=== PATIENT | female | born 2005 | race Caucasian/White ===

== ENCOUNTER 2024-02-24 16:46 | Emergency (ER) | payer OTHER, SELFPAY ==
[2024-02-24 16:51] VITALS: BP 136/87; PULSE 91; TEMP 36.9; O2SAT 99
--- NOTE | 2024-02-24 17:09 | ED_ITS ---
HPI HPI - General Adult General Chief complaint: Upper Respiratory Infection Stated complaint: SORE THROAT Time Seen by Provider: 02/24/24 16:50 Source: patient Mode of arrival: walk-in Limitations: no limitations History of Present Illness HPI narrative: Patient presents to ED complaining of sore throat. She has had a sore throat for about a week. She went to an urgent care and they tested her for strep which was negative. Patient states she gets throat infections a lot and she feels like she is at the point where she needs some medication for it. She has some swelling in the left side with increased pain in the left side of the throat. Trismus no drooling she is handling secretions no hot potato voice. No fever here no hypoxia. She denies any cough or congestion no abdominal pain nausea vomiting. She said she has been using sore throat spray and it works for a little while but then stopped working. She said she has had steroids in the past and that has helped her pain and swelling in her throat. She said she was seen by ENT in the past and they said they were going to take her tonsils out but she does get chronic infections. Related Data Previous Rx's ?Medication ?Instructions ?Recorded clindamycin HCl 300 mg capsule 300 mg PO Q6H 10 days #40 caps 02/24/24 methylprednisolone 4 mg tablets in 4 mg PO DAILY #21 ea 02/24/24 a dose pack (Medrol (Robert)) Allergies Allergy/AdvReac Type Severity Reaction Status Date / Time Penicillins Allergy Severe Rash Verified 02/24/24 16:55 Opioid HPI Opioid Management Most Recent Opioid Data: No Data to Display Review of Systems ROS Status of ROS 10 or more systems reviewed and unremark able except as noted in history and below PFSH PFSH Social History Little interest or pleasure in doing things: not at all Feeling down, depressed, or hopeless: not at all Exam Narrative Exam Narrative: General: alert, no acute distress Cardiovascular: regular rate and rhythm, normal peripheral perfusion. Respiratory: Lungs CTA, respirations non labored. Extremities: no deformity, no trauma. Neurological: oriented x 4, LOC appropriate for age. Bilateral posterior pharynx shows erythema, worsening erythema on the left with very mild swelling and exudates more prominent on the left. No uvular shift. Airway patent. No trismus. No tongue elevation or drooling. Constitutional Vital Signs, click to edit/add: Last Vital Signs Temp 98.5 F 02/24/24 16:51 Pulse 91 H 02/24/24 16:51 Resp 20 02/24/24 16:51 BP 136/87 02/24/24 16:51 Pulse Ox 99 02/24/24 16:51 O2 Del Method Room Air 02/24/24 16:51 Course Vital Signs Vital signs: Vital Signs Temperature 98.5 F 02/24/24 16:51 Pulse Rate 91 H 02/24/24 16:51 Respiratory Rate 20 02/24/24 16:51 Blood Pressure 136/87 02/24/24 16:51 Pulse Oximetry 99 02/24/24 16:51 Oxygen Delivery Method Room Air 02/24/24 16:51 Temperature 98.5 F 02/24/24 16:51 Pulse Rate 91 H 02/24/24 16:51 Respiratory Rate 20 02/24/24 16:51 Blood Pressure 136/87 02/24/24 16:51 Pulse Oximetry 99 02/24/24 16:51 Oxygen Delivery Method Room Air 02/24/24 16:51 Medical Decision Making MDM Narrative Medical decision making narrative: Patient will be sent home on clindamycin due to her allergy to penicillin. She will also be sent home with steroids to help with swelling. Return to ED if worsening symptoms fevers vomiting or any further concerns. Otherwise follow-up with family doctor. Patient comfortable care plan for home Differential Diagnosis Differential Diagnosis: Peritonsillar abscess, strep throat, pharyngitis, viral syndrome Discharge Plan Discharge Chief Complaint: Upper Respiratory Infection Clinical Impression: Pharyngitis Patient Disposition: Home, Self-Care Time of Disposition Decision: 17:00 Condition: Good Mode of Transportation: Private Vehicle Prescriptions / Home Meds: New clindamycin HCl 300 mg capsule 300 mg PO Q6H 10 Days Qty: 40 0RF methylprednisolone [Medrol (Robert)] 4 mg tablets,dose pack 4 mg PO DAILY Qty: 21 0RF Print Language: Estonian Instructions: Pharyngitis (ED) Referrals: Physician,Non-Staff, MD [Primary Care Provider] - 1 week
== END 2024-02-24 17:10 | disposition home or self-care (01) ==
PROVIDERS: Emergency Provider Emergency Medicine
DX: J02.9 Acute pharyngitis, unspecified (principal); Z88.0 Allergy status to penicillin
CPT/HCPCS: 99283

== ENCOUNTER 2024-11-16 14:18 | Emergency (ER) | payer OTHER, SELFPAY ==
[2024-11-16 14:28] VITALS: BP 139/82; PULSE 71; TEMP 37.2; O2SAT 100; BMI 28.3
--- NOTE | 2024-11-16 14:37 | ED.ABDPAIN1 ---
HPI - Abdominal Pain General Chief Complaint: Abdominal Pain Stated Complaint: ABDOMINAL PAIN Time Seen by Provider: 11/16/24 14:33 Source: patient Mode of arrival: walk-in Limitations: no limitations History of Present Illness HPI narrative: 18 year old female presents to the ED for low abd pain, urinary frequency/urgency, AUB. States her LNMP was 11/10/24. States she typically only has 3 days of bleeding. She has had continued light pink spotting. Reports suprapubic pain/pressure. She felt lightheade at work today. Denies fever, injury, emesis, diarrhea, dysuria. Denies chance of . Related Data Home Medications ?Medication ?Instructions ?Recorded ?Confirmed norgestimate 0.25 mg-ethinyl 1 tab PO DAILY 11/16/24 11/16/24 estradiol 0.035 mg tablet (Lainey) Previous Rx's ?Medication ?Instructions ?Recorded cephalexin 500 mg capsule 500 mg PO BID 5 days #10 caps 11/16/24 Allergies Allergy/AdvReac Type Severity Reaction Status Date / Time Penicillins Allergy Severe Rash Verified 11/16/24 14:28 Review of Systems ROS Constitutional Reports: fatigue; Denies: fever or chills Cardiovascular Reports: lightheadedness; Denies: chest pain Respiratory Denies: shortness of breath Gastrointestinal Reports: abdominal pain; Denies: nausea, vomiting or diarrhea Genitourinary Reports: urinary frequency, urinary urgency, vaginal bleeding and irregular period; Denies: painful urination or blood in urine Musculoskeletal Denies: back pain Neurological Denies: headache or dizziness PFSH PFSH Social History Little interest or pleasure in doing things: not at all Feeling down, depressed, or hopeless: not at all Exam Constitutional Vital Signs, click to edit/add: Last Vital Signs Temp 98.9 F 11/16/24 14:28 Pulse 71 11/16/24 14:28 Resp 16 11/16/24 14:28 BP 139/82 11/16/24 14:28 Pulse Ox 100 11/16/24 14:28 O2 Del Method Room Air 11/16/24 14:28 Common normals: no apparent distress and oriented x3 General appearance: cooperative HENMT Common normals: moist oral mucous membranes Eye Common normals: conjunctivae normal and no scleral icterus Neck & C-Spine Common normals: supple Chest Chest: symmetrical chest wall rise Respiratory Common normals: normal respiratory effort Effort & inspection: able to speak in complete sentences and symmetric chest movement Cardio Common normals: regular rate and regular rhythm GI Common normals: soft to palpation Palpation: soft and tender Details: suprapubic Neuro Common normals: oriented x3 and moves all extremities Sensorium/orientation: awake and alert Speech: speech normal Course Vital Signs Vital signs: Vital Signs Temperature 98.9 F 11/16/24 14:28 Pulse Rate 71 11/16/24 14:28 Respiratory Rate 16 11/16/24 14:28 Blood Pressure 139/82 11/16/24 14:28 Pulse Oximetry 100 11/16/24 14:28 Oxygen Delivery Method Room Air 11/16/24 14:28 Temperature 98.9 F 11/16/24 14:28 Pulse Rate 71 11/16/24 14:28 Respiratory Rate 16 11/16/24 14:28 Blood Pressure 139/82 11/16/24 14:28 Pulse Oximetry 100 11/16/24 14:28 Oxygen Delivery Method Room Air 11/16/24 14:28 MDM - Abdominal Pain MDM Narrative Medical decision making narrative: Urine was negative. Urinalysis showed infection; culture was pending. WBC count was 15.8. Findings were discussed. Follow up with [facility] for a recheck, further evaluation and treatment. A prescription was provided for Keflex. Differential Diagnosis Differential diagnosis: Likely abdominal pain and other (UTI, AUB) Medical Records Attestation: I reviewed the patient's medical records. Lab Data Attestation: I reviewed the patient's lab results. Labs: Lab Results 11/16/24 11/16/24 Range/Units 14:50 14:52 WBC 15.8 H (4.0-11.0) 10^3/uL RBC 4.76 (4.20-5.40) 10^6/uL Hgb 13.3 (12.0-16.0) g/dL Hct 40.3 (36.0-48.0) % MCV 84.7 (81.0-99.0) fL MCH 27.9 (26.7-34.0) pg MCHC 33.0 (29.9-35.2) g/dL RDW 13.5 (11.0-15.0) % Plt Count 313 (150-450) 10^3/uL MPV 10.3 (9.5-13.5) fL Neut % (Auto) 83.9 H (43.0-75.0) % Lymph % (Auto) 8.1 L (20.5-60.0) % [place] % (Auto) 7.1 (1.7-12.0) % Eos % (Auto) 0.2 L (0.9-7.0) % Baso % (Auto) 0.3 (0.2-2.0) % Neut # (Auto) 13.2 H (1.4-6.5) 10^3/uL Lymph # (Auto) 1.3 (1.2-3.8) 10^3/uL [place] # (Auto) 1.1 H (0.3-0.8) 10^3/uL Eos # (Auto) 0.0 (0.0-0.7) 10^3/uL Baso # (Auto) 0.1 (0.0-0.1) 10^3/uL Abs Immat Gran (auto) 0.06 H (0.00-0.03) 10^3/uL Imm/Tot Granulo (auto) 0.4 (0.0-0.5) % Sodium 136 (136-145) mmol/L Potassium 3.6 (3.5-5.1) mmol/L Chloride 103 (98-107) mmol/L Carbon Dioxide 27.3 (21.0-32.0) mmol/L Anion Gap 9.3 BUN 8.0 (6.4-19.3) mg/dL Creatinine 0.80 (0.55-1.02) mg/dL Est GFR ( Amer) >60 (>=60 mL/min/1.73m^2) Est GFR (Non-Af Amer) >60 (>=60 mL/min/1.73m^2) BUN/Creatinine Ratio 10.0 Glucose 98 (74-106) mg/dL Calcium 9.2 (8.5-10.1) mg/dL Total Bilirubin 0.5 (0.2-1.0) mg/dL AST 16 (15-37) U/L ALT 28 (14-59) U/L Alkaline Phosphatase 83 (46-116) U/L Total Protein 7.6 (6.4-8.2) g/dL Albumin 3.8 (3.4-5.0) g/dL Globulin 3.8 g/dL Albumin/Globulin Ratio 1.0 Urine Color Yellow (YELLOW) Urine Clarity Slightly cloudy A (CLEAR) Urine pH 6.0 (5.0-9.0) Ur Specific [place] 1.015 (1.005-1.025) Urine Protein >=300 A (NEG/TRACE) mg/dL Urine Glucose (UA) Negative (NEGATIVE) mg/dL Urine Ketones Negative (NEGATIVE) mg/dL Urine Occult Blood Large A (NEGATIVE) Urine Nitrite Positive A (NEGATIVE) Urine Bilirubin Negative (NEGATIVE) Urine Urobilinogen 0.2 (0.2-1.0) EU/dL Ur Leukocyte Esterase Moderate A (NEGATIVE) Urine RBC 20-50 A (0-2) #/HPF Urine WBC 75-100 A (NONE SEEN) #/HPF Ur Squamous Epith Cells Few A (NONE/RARE) #/LPF Urine Crystals None seen (None Seen) #/HPF Urine Bacteria Moderate A (NONE SEEN) #/HPF Urine Casts None seen (NONE SEEN) #/LPF Urine Mucus None seen (NONE SEEN) Ur Culture Indicated? Yes-[facility] [place] Urine HCG, Qual Negative (NEGATIVE) Discharge Plan Discharge Chief Complaint: Abdominal Pain Clinical Impression: UTI (urinary tract infection), Abnormal uterine bleeding (AUB) Patient Disposition: Home, Self-Care Time of Disposition Decision: 15:44 Condition: Good Mode of Transportation: Private Vehicle Prescriptions / Home Meds: New cephalexin 500 mg capsule 500 mg PO BID 5 Days Qty: 10 0RF No Action norgestimate-ethinyl estradiol [Lainey] 0.25-0.035 mg tablet 1 tab PO DAILY Print Language: Indonesian Instructions: Abnormal (Dysfunctional) Uterine Bleeding (ED), Urinary Tract Infection in Women (ED) Additional Instructions: Return to the ER for worsening symptoms. Follow up with your [facility] for a recheck, further evaluation and treatment. Referrals: Physician,Non-Staff, MD [Primary Care Provider] - 1 week Discharge Date/Time: 11/16/24 15:49
--- OUTSIDE RECORDS SUMMARY | 2024-11-16 15:00 | XMS_ITS | CCD ---
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 Role Phone DR KRISTAN CHAWLA Admitting Unavailable SUSAN RODRIGUES Primary Care Unavailable CAMMY, DR RUSHING Attending Unavailable CAMMY, DR RUSHING Consulting Unavailable ROZ WEAVER Consulting Unavailable ALESSANDRO ANGLIN Consulting Unavailable ZULEMA RAMOS Admitting Unavailable ZULEMA RAMOS Attending Unavailable ZULEMA RAMOS Consulting Unavailable LILIA SUSAN ANDREW Primary Care Unavailable ISHAN CARR Consulting Unavailable LILIA SUSAN ANDREW Primary Care Unavailable YOLANDA TSAI Consulting Unavailable MARKER, DR LEOS Admitting Unavailable MARKER, DR LEOS Attending Unavailable MARKER, DR LEOS Consulting Unavailable LUIS F PRATT Referring Unavailable NO PCP, NO PCP Primary Care Unavailable LUIS F PRATT Attending Unavailable NO PCP, NO PCP Primary Care Unavailable Shelley Martinez APRN Attending Provider No Pcp, No Pcp Primary Care Provider Unavaildavid e NO FAMILY, PHYSICIAN Primary Care Provider Unava ilable Natanael Rafia VENCES Emergency Provider [phone] NON STAFF Primary Care Provider Unavaildavid e Dann Sibley MD Attending Provider [phone] Johnnie Clements MD Admit Provider Johnnie Clements MD Attending Provider Johnnie Clements MD Other Provider [phone] JUSTA CARDONA Primary Care Unavailable CYDNEY PINEDA Attending Unavailable NO FAMILY, PHYSICIAN Primary Care Unavailable Rafia Santoyo Attending Unavailable Rafia Santoyo Admitting Unavailable Shelley Martinez Admitting Unavailable NON STAFF Primary Care Unavailable Shelley Martinez Attending Unavailable NON STAFF Primary Care Unavailable Dann Sibley Attending Unavailab Dann Rebollar Admitting Unavailab surinder NO FAMILY, PHYSICIAN Primary Care Unavailable Johnnie Clements Attending Unavailable Johnnie Clements Admitting Unavailable Rice WHCNP Apple Palomino Attending Unavaila ble Rice WHCNP WHCNP, Apple Unavailable Unavaila ble Rice WHCNP WHCNP, Apple Unavailable Unavaila ble Allergies Allergy Classification Reported Allergen(s) Allergy Type Date of Onset Reaction(s) Facility (1 source) Penicillin Drug Allergy [facility] (1 source) Penicillins Drug allergy (disorder) 10-12-2024 [facility] Repository Medications Current Medications Medication Drug Class(es) Dates Sig (Normalized) Sig (Original) acetaminophen 500 mg oral tablet (2 sources) Start: 05-21-2022 take 1 tablet by mouth every six hours as needed for pain acetaminophen (TYLENOL EXTRA STRENGTH) 500 mg tablet Take 1 tablet (500 mg total) by mouth every 6 (six) hours as needed for pain. 30 tablet 0 05/21/2022 Active Sprintec 28 Day Pack (1 source) Progestin, Estrogen Start: 10-25-2024 take 1 tablet by mouth once daily Sprintec (28) 0.25 mg-0.035 mg tablet take 1 tablet by oral route every day 1.00 tablet - Active lidocaine 0.05 mg/mg medicated patch (2 sources) Antiarrhythmic, Amide Local Anesthetic Start: 06-19-2022 lidocaine (LIDODERM) 5 % Place 2 patches on the skin daily. Remove & Discard patch within 12 hours or as directed by 30 patch 0 06/19/2022 Active metroNIDAZOLE 500 mg oral tablet (1 source) Nitroimidazole Antimicrobial Start: 10-30-2024 take 1 tablet by mouth twice daily metronidazole 500 mg tablet take 1 tablet by oral route BID for 7 days - Active Problems Active Problems Problem Classification Problem Date Documented Date Episodic/Chronic Abdominal pain (1 source) Unspecified abdominal pain; Translations: [UNSPECIFIED ABDOMINAL PAIN] Onset: 01-15-2022 Episodic Anxiety disorders (1 source) Anxiety 10-25-2024 Chronic Contraceptive and procreative management (2 sources) Encounter for initial prescription of contraceptive pills Episodic E Codes: Natural/environment (1 source) Other and unspecified overexertion or strenuous movements or postures, initial encounter; Translations: [OTH AND UNS OVREXRT/STRN MVMT/POS INT] Onset: 02-25-2022 Episodic Fluid and electrolyte disorders (1 source) Hypokalemia; Translations: [Hypokalemia] Onset: 10-13-2024 Episodic Immunizations and screening for infectious disease (2 sources) Encounter for screening for infections with a predominantly sexual mode of transmission Episodic Mood disorders (3 sources) Acute depression; Translations: [Acute depression] Onset: 10-14-2024 10-14-2024 Chronic Mood disorders (2 sources) Mood disorders; Translations: [Depression, unspecified] Onset: 10-13-2024 Nausea and vomiting (4 sources) Nausea with vomiting, unspecified; Translations: [NAUSEA WITH VOMITING UNSPECIFIED] Onset: 01-13-2022 Episodic Osteoarthritis (1 source) Arthritis 10-25-2024 Chronic Other acquired deformities (1 source) Scoliosis, unspecified; Translations: [SCOLIOSIS UNSPECIFIED] Onset: 02-25-2022 Chronic Other acquired deformities (1 source) Acquired scoliosis Onset: 05-17-2023 Chronic Other aftercare (1 source) Other prison (current) drug therapy; Translations: [OTH DETENTION CURRENT DRUG THERAPY] Onset: 01-15-2022 Episodic Other bone disease and musculoskeletal deformities (1 source) Adolescent idiopathic scoliosis, thoracolumbar region; Translations: [Adolescent idiopathic scoliosis, thoracolumbar region] Onset: 05-17-2023 Chronic Other bone disease and musculoskeletal deformities (3 sources) Adolescent idiopathic scoliosis of thoracolumbar spine; Translations: [Adolescent idiopathic scoliosis, thoracolumbar region] Onset: 05-19-2022 05-19-2022 Chronic Other connective tissue disease (1 source) Arthrodesis status; Translations: [Arthrodesis status] Onset: 05-17-2023 Episodic Other connective tissue disease (1 source) Personal history of other diseases of the musculoskeletal system and connective tissue; Translations: [Personal history of other diseases of the musculoskeletal system and connective tissue] Onset: 05-17-2023 Episodic Other non-traumatic joint disorders (1 source) Pain in right elbow; Translations: [Pain in right elbow] Onset: 10-12-2024 Episodic Other nutritional; endocrine; and metabolic disorders (2 sources) Body mass index (BMI) 30.0-30.9, adult Onset: 10-25-2024 10-25-2024 Chronic Residual codes; unclassified (2 sources) High risk heterosexual behavior Episodic Sprains and strains (3 sources) Sprain of ligaments of thoracic spine, initial encounter; Translations: [Sprain of ligament of elbow] Onset: 02-25-2022 10-12-2024 Episodic Suicide and intentional self-inflicted injury (1 source) Suicidal ideations; Translations: [Suicidal ideations] Onset: 10-13-2024 Episodic Unclassified (2 sources) Call with any medical concerns. Unclassified (1 source) sap manager will call you on the next business day between 8am & 5pm, if you miss this call please call back as soon as possible. Unclassified (1 source) Suicidal Onset: 10-13-2024 Unclassified (1 source) EMS Onset: 10-13-2024 Past or Other Problems Problem Classification Problem Date Documented Da te Episodic/Chronic Other connective tissue disease (2 sources) History of spinal fusion for scoliosis; Translations: [Arthrodesis status] 05-13-2023 Episodic Other upper respiratory infections (12 sources) Acute pharyngitis, unspecified; Translations: [Streptococcal pharyngitis] Onset: 03-10-2022 Episodic Spondylosis; intervertebral disc disorders; other back problems (6 sources) Dorsalgia, unspecified; Translations: [Muscle spasm of back] Onset: 02-24-2022 Episodic Syncope (2 sources) Vasovagal syncope; Translations: [Syncope and collapse] Onset: 06-19-2022 06-19-2022 Episodic Unclassified (1 source) annual exam (chief complaint) vaginal discharge/itching (chief complaint) Onset: 10-25-2024 Results Test Name Value Interpretation Reference Range Facil ity No Panel InformationOrdered By: Apple FIGUEROA on 10-28-2024 Mycoplasma genitalium BERNADETTE Negative Negative [facility] - Microbiology an d Antimicrobial susceptibilityOrdered By: Apple FIGUEROA on 10-27-2024 C. trachomatis DNA BERNADETTE+probe Ql (Unsp spec) Negative Negative [facility] N. gonorrhoeae DNA BERNADETTE+probe Ql (Vag fld) Negative Negative [facility] T. vaginalis DNA BERNADETTE+probe Ql (Vag fld) Negative Negative [facility] A. vaginae DNA BERNADETTE+probe Ql (Vag fld) Low - 0 [facility] Bacterial vaginosis associated bacterium 2 DNA BERNADETTE+probe Ql (Vag fld) High - 2 Abnormal [facility] C. albicans DNA BERNADETTE+probe Ql (Vag fld) Negative Negative [facility] C. glabrata DNA BERNADETTE+probe Ql (Vag fld) Negative Negative [facility] Megasphaera sp type 1 DNA BERNADETTE+probe Ql (Vag fld) High - 2 Abnormal [facility] Comment on above: Calculate total scor e by adding the 3 individual bacterialvaginosis (BV) marker scores together. Total score isinterpreted as follows:Total score 0-1: Indicates the absence of BV.Total score 2: Indeterminate for BV. Additional clinical data should be evaluated to establish a diagnosis.Total score 3-6: Indicates the presence of BV.Performed by:[facility] Chi () ECG 12 lead ECGon 10-14-2024 ECG 12 lead ECG [facility] [place] [address] Electrocardiograph Report Signed Patient: Deisy Don MR#: [id number] : 2005 Acct:[id number] Age/Sex: 18 / F ADM Date: 10/14/24 Loc: Room: [address] [place] [address] Type: ADM IN Attending Dr: Johnnie Clements MD Ordering Provider: Johnnie Clements MD Date of Service: 10/14/2403/29/500 ECG/ECG 12 lead ECG: baseline for psych meds Copies to: Test Reason : Blood Pressure : */* mmHG Vent. Rate : 58 BPM Atrial Rate : 58 BPM P-R Int : 142 ms QRS Dur : 94 ms QT Int : 438 ms P-R-T Axes : 40 74 66 degrees QTcB Int : 429 ms Sinus bradycardia with sinus arrhythmia Otherwise normal ECG No previous ECGs available Confirmed by Mauricio Gonzalez ([id number]) on 10/14/2024 6:25:38 PM Referred By: Electronically Signed By: Mauricio Gonzalez Transcribed By: MUS Signed By Mauricio Gonzalez MD 10/14/24 1825 Normal [facility] Lipid Panelon 10-14-2024 Cholesterol [Mass/Vol] 102 mg/dL Low 140-200 [facility] Comment on above: Result Comment: Chol less than 200 mg/dl low risk Chol 201-239 mg/dl borderline risk Chol 240 mg/dl and greater high risk Performed By: #### V [id number], TSH3 wRFLX, LIPID #### [facility] [address] [place] [address] [facility] Cholesterol in HDL [Mass/Vol] 37 mg/dL Normal 23-92 [facility] Comment on above: Result Comment: HDL CHOL ATP-III CLASSIFICATION Cardiovascular Risk HDL > or equal to 60 mg/dL LOW HDL < 40 mg/dL HIGH Performed By: #### V [id number], TSH3 wRFLX, LIPID #### [facility] [address] [place] [address] [facility] Cholesterol.total/Carolyn sterol in HDL [Mass ratio] 2.8 {ratio} Normal <5.0 [facility] Comment on above: Performed By: #### V [id number], TSH3 wRFLX, LIPID #### [facility] [address] [place] [address] [place] LDL Cholesterol,Calculated 45 mg/dL Normal 0-100 [facility] Comment on above: Result Comment: LDL ATP III CLASSIFICATION LDL less than 100 mg/dL Optimal LDL 100-129 mg/dL Near or above optimal LDL 130-159 mg/dL Borderline high LDL 160-189 mg/dL High LDL greater than 189 mg/dL Very high Performed By: #### V [id number], TSH3 wRFLX, LIPID #### [facility] [address] [place] [address] [place] Triglyceride w/Reflex 99 mg/dL Normal 0-149 [facility] Comment on above: Result Comment: TRIG ATP III CLASSIFICATION TRIG less than 150 mg/dL Normal TRIG 150-199 mg/dL Borderline high TRIG 200-500 mg/dL High TRIG greater than 500 mg/dL Very high Standard traceable to the Center for Disease Conrtrol and Prevention (CDC) test method. Performed By: #### V [id number], TSH3 wRFLX, LIPID #### [facility] [address] VLDL CHOLESTEROL 19 mg/dL Normal [facility] Comment on above: Performed By: #### V [id number], TSH3 wRFLX, LIPID #### [facility] [address] [place] [id number] [facility] Thyroid Stim Hormone w/Rflxo n 10-14-2024 Thyroid Stim Hormone w/Rflx 0.54 u[iU]/mL Normal 0.45-5.33 [facility] Comment on above: Performed By: #### V [id number], TSH3 wRFLX, LIPID #### [address] Vitamin D 25 Hydroxy Totalon 10-14-2024 Vitamin D 25 Hydroxy Total 12.1 ng/mL Low 30-100 [facility] Comment on above: Result Comment: DARWIN MIN D STATUS 25(OH)VITAMIN D RANGE (ng/mL) Deficient <20 Insufficient 20 to <30 Sufficient 30 to 100 Reference: Fernando MF,Cristian NC, Tamara THORNTON, et al. Evaluation,treatment, and prevention of vitamin D deficiency; an Endocrine Society clinical practice guideline. JCEM. 2010; 96(7):1911-30. PERFORMED BY: [place] [address] PATHOLOGIST CALENDER WIND UP TENDER INOCENCIO MCKINNON M.D. Performed By: #### V [id number], TSH3 wRFLX, LIPID #### [facility] [address] [place] [address] ACETAMINOPHEN LEVELon 2024 Acetaminophen [Mass/Vol] 4.6 ug/mL Low 10.0-30.[address] [facility] Comment on above: Order Comment: Refer ence ranges are for therapeutic limits. Performed By: #### A CETA #### [facility] ([facility]) [address] [place] [address] VIR BASIC METABOLIC PANELon 07- Anion gap [Moles/Vol] 6 mmol/L Normal 5-15 [facility] Comment on above: Performed By: #### B MP #### [facility] ([address] [place] [address] VIR Calcium [Mass/Vol] 8.8 mg/dL Normal 8.5-10.5 [facility] Comment on above: Performed By: #### B MP #### [facility] ([address] [place] [address] VIR Chloride [Moles/Vol] 108 mmol/L Normal 98-109 [facility] Comment on above: Performed By: #### B MP #### [facility] ([address] [place] [address] VIR CO2 [Moles/Vol] 24 mmol/L Normal 22-[address] [facility] Comment on above: Performed By: #### B MP #### [facility] ([address] [place] [address] VIR Creatinine [Mass/Vol] 0.78 mg/dL Normal 0.40-1.[address] [facility] Comment on above: Result Comment: METH OD TRACEABLE TO IDMS STANDARD Performed By: #### B MP #### [facility] ([address] [place] [address] VIR EGFR (CKD-EPI) NON-RACE DEPENDENT >^90 Normal >=[address] [facility] Comment on above: Result Comment: eGFR not reported due to non-numeric value for Creatinine. Reported eGFR is based on the CKD-EPI 2021 equation that does not use a race coefficient. Performed By: #### B MP #### [facility] ([address] [place] [address] VIR Glucose [Mass/Vol] 95 mg/dL Normal 65-99 [facility] Comment on above: Performed By: #### B MP #### [facility] ([address] [place] [address] VIR Potassium [Moles/Vol] 3.2 mmol/L Low 3.5-5.[address] [facility] Comment on above: Performed By: #### B MP #### [facility] ([address] [place] [address] VIR Sodium [Moles/Vol] 138 mmol/L Normal 134-146 [facility] Comment on above: Performed By: #### B MP #### [facility] ([address] [place] [address] VIR Urea nitrogen [Mass/Vol] 9 mg/dL Normal 5-[address] [facility] Comment on above: Performed By: #### B MP #### [facility] ([address] [address] VIR CBC WITH AUTO DIFFERENTIALon 10-13-2024 BASOPHILS ABSOLUTE COUNT (10*3/UL) BY AUTOMATED COUNT 0.0 10*3/uL Normal 0.0-0.[address] [facility] Comment on above: Performed By: #### C BCA #### [facility] ([address] [place] [address] VIR BASOPHILS RELATIVE PERCENT BY AUTOMATED COUNT 0.1 % Normal [facility] Comment on above: Performed By: #### C BCA #### [facility] ([address] [address] VIR CELLAVISION DIFFERENTIAL TYPE AUTOMATED DIFFERENTIAL Normal [facility] Comment on above: Performed By: #### C BCA #### [facility] ([address] [place] [address] VIR Eosinophils (Bld) [#/Vol] 0.0 10*3/uL Normal 0.0-0.[address] [facility] Comment on above: Performed By: #### C BCA #### [facility] ([address] [place] [address] VIR EOSINOPHILS RELATIVE PERCENT BY AUTOMATED COUNT 0.4 % Normal [facility] Comment on above: Performed By: #### C BCA #### [facility] ([address] [address] VIR Erythrocyte distribution width (RBC) [Ratio] 13.6 % Normal 11.5-[address] [facility] Comment on above: Performed By: #### C BCA #### [facility] ([address] [address] VIR Hematocrit (Bld) [Volume fraction] 40.9 % Normal 35-[address] [facility] Comment on above: Performed By: #### C BCA #### [facility] ([address] [address] VIR Hemoglobin (Bld) [Mass/Vol] 13.7 g/dL Normal 11.7-15.[address] [facility] Comment on above: Performed By: #### C BCA #### [facility] ([address] [address] VIR LYMPHOCYTES ABSOLUTE COUNT (10*3/UL) BY AUTOMATED COUNT 1.3 10*3/uL Normal 1.0-3.[address] [facility] Comment on above: Performed By: #### C BCA #### [facility] ([address] [address] VIR LYMPHOCYTES RELATIVE PERCENT BY AUTOMATED COUNT 11.0 % Normal [facility] Comment on above: Performed By: #### C BCA #### [facility] ([address] [address] VIR MCH (RBC) [Entitic mass] 27.2 pg Normal 27-[address] [facility] Comment on above: Performed By: #### C BCA #### [facility] ([address] [address] VIR MCHC (RBC) [Mass/Vol] 33.4 g/dL Normal 32-[address] [facility] Comment on above: Performed By: #### C BCA #### [facility] ([address] [address] VIR MCV (RBC) [Entitic vol] 82 fL Normal 80-100 P [facility] Comment on above: Performed By: #### C BCA #### [facility] ([address] [address] VIR MONOCYTES ABSOLUTE COUNT (10*3/UL) BY AUTOMATED COUNT 0.7 10*3/uL Normal 0.0-0.[address] [facility] Comment on above: Performed By: #### C BCA #### [facility] ([address] [address] VIR MONOCYTES RELATIVE PERCENT BY AUTOMATED COUNT 6.0 % Normal [facility] Comment on above: Performed By: #### C BCA #### [facility] ([address] [address] VIR NEUTROPHILS ABSOLUTE COUNT BY AUTOMATED COUNT 9.6 10*3/uL High 1.5-6.[address] [facility] Comment on above: Performed By: #### C BCA #### [facility] ([address] [address] VIR NEUTROPHILS RELATIVE PERCENT BY AUTOMATED COUNT 82.5 % Normal [facility] Comment on above: Performed By: #### C BCA #### [facility] ([address] [address] VIR Platelet mean volume (Bld) [Entitic vol] 8.4 fL Normal 7-[address] [facility] Comment on above: Performed By: #### C BCA #### [facility] ([address] [address] VIR Platelets (Bld) [#/Vol] 340 10*3/uL Normal 150-[address] [facility] Comment on above: Performed By: #### C BCA #### [facility] ([address] [place] [address] VIR RBC COUNT 5.02 X10E12/L Normal 3.8-5.[address] [facility] Comment on above: Performed By: #### C BCA #### [facility] ([address] [address] VIR WBC (Bld) [#/Vol] 11.6 10*3/uL High 4-11 [facility] Comment on above: Performed By: #### C BCA #### [facility] ([address] [address] VIR DRUG SCREEN, URINEon 025 AMPHETAMINE/METHAMP Negative Normal Negative [facility] Comment on above: Order Comment: Confi rmation available upon request. Result Comment: AMPH /METH screening cut off = 1000 ng/mL Performed By: #### B MP #### [facility] ([address] [address] VIR BARBITURATES Negative Normal Negative [facility] Comment on above: Order Comment: Confi rmation available upon request. Result Comment: Keira iturates screening cut off value = 200 ng/mL Performed By: #### B MP #### [facility] ([address] [address] VIR BENZODIAZEPINES Negative Normal Negative [facility] Comment on above: Order Comment: Confi rmation available upon request. Result Comment: Terrence odiazepines screening cut off value = 200 ng/mL Performed By: #### B MP #### [facility] ([address] [address] VIR CANNABINOIDS Positive Abnormal Negative [facility] Comment on above: Order Comment: Confi rmation available upon request. Result Comment: Dexter abinoids/THC screening cut off value = 50 ng/mL Performed By: #### B MP #### [facility] ([address] [place] [address] VIR COCAINE METABOLITE Negative Normal Negative [facility] Comment on above: Order Comment: Confi rmation available upon request. Result Comment: Coca ine screening cut off value = 300 ng/mL Performed By: #### B MP #### [facility] ([address] [place] [address] VIR ECSTASY Negative Normal Negative [facility] Comment on above: Order Comment: Confi rmation available upon request. Result Comment: Ecst asy screening cut off value = 500 ng/mL Performed By: #### B MP #### [facility] ([address] [place] [address] VIR METHADONE Negative Normal Negative [facility] Comment on above: Order Comment: Confi rmation available upon request. Result Comment: Meth adone screening cut off value = 300 ng/mL. Performed By: #### B MP #### [facility] ([address] [place] [address] VIR OPIATES Negative Normal Negative [facility] Comment on above: Order Comment: Confi rmation available upon request. Result Comment: Opia angela screening cut off value = 300 ng/mL This test is used for the detection of codeine, hydrocodone (>1000 ng/mL), morphine and hydromorphone (>900 ng/mL) in urine. Performed By: #### B MP #### [facility] ([address] [place] [address] VIR OXYCODONE Negative Normal Negative [facility] Comment on above: Order Comment: Confi rmation available upon request. Result Comment: Oxyc odone screening cut off value = 300 ng/mL This test is used for the detection of oxycodone and oxymorphone in urine. Performed By: #### B MP #### [facility] ([address] [place] [address] VIR PHENCYCLIDINE Negative Normal Negative [facility] Comment on above: Order Comment: Clay rmation available upon request. Result Comment: Phen cyclidine screening cut off value = 25 ng/mL Performed By: #### B MP #### [facility] ([address] [address] VIR ETHANOLon 10-13-2024 Ethanol [Mass/Vol] mg/dL Normal <=0.080 [facility] Comment on above: Result Comment: This report is intended for use in clinical monitoring or management of patients. Performed By: #### A LCO #### [facility] ([address] [address] VIR LIVER PANELon 10-13-2024 Albumin [Mass/Vol] 4.1 g/dL Normal 3.2-5.3 [facility] Comment on above: Performed By: #### L IVR #### [facility] ([address] [address] VIR ALP [Catalytic activity/Vol] 82 U/L Normal 39-[address] [facility] Comment on above: Performed By: #### L IVR #### [facility] ([address] [address] VIR ALT [Catalytic activity/Vol] 15 U/L Normal <=[address] [facility] Comment on above: Performed By: #### L IVR #### [facility] ([address] [address] VIR AST [Catalytic activity/Vol] 18 U/L Normal <=[address] [facility] Comment on above: Performed By: #### L IVR #### [facility] ([address] [address] VIR Bilirubin [Mass/Vol] 0.8 mg/dL Normal 0.3-1.2 [facility] Comment on above: Performed By: #### L IVR #### [facility] [address] [place] [address] VIR Bilirubin.indirect [Mass/Vol] 0.1 mg/dL Normal <=[address] [facility] Comment on above: Performed By: #### L IVR #### [facility] ([address] [address] VIR Protein [Mass/Vol] 7.7 g/dL Normal 6.0-8.0 [facility] Comment on above: Performed By: #### L IVR #### [facility] ([address] [place] [address] VIR MAGNESIUMon 10-13-2024 Magnesium [Mass/Vol] 1.8 mg/dL Normal 1.8-2.6 [facility] Comment on above: Performed By: #### M G #### [facility] ([address] [place] [address] VIR POCT NURSING URINE MACROSCOP IC UAon 10-13-2024 BILIRUBIN [place] Negative Normal Negative [facility] Comment on above: Performed By: #### N UM #### [facility] ([address] [place] [address] VIR BLOOD/HGB [place] Small Abnormal Negative [facility] Comment on above: Performed By: #### N UM #### [facility] ([address] [place] [address] VIR GLUCOSE [place] Negative Normal Negative [facility] Comment on above: Performed By: #### N UM #### [facility] ([address] [place] [address] VIR KETONES [place] 15 mg/dL Abnormal Negative [facility] Comment on above: Performed By: #### N UM #### [facility] ([address] [place] [address] VIR LEUKOCYTE ESTERASE [place] Negative Normal Negative [facility] Comment on above: Performed By: #### N UM #### [facility] ([address] [address] VIR NITRITE [place] Positive Abnormal Negative [facility] Comment on above: Performed By: #### N UM #### [facility] ([address] [address] VIR PH [place] 6.0 Normal 5.0, 6.0, 6.5, 7.0, 7.5, 8.0, 8.5, 5.[address] [facility] Comment on above: Performed By: #### N UM #### [facility] ([address] [address] VIR PROTEIN [place] Trace Abnormal Negative [facility] Comment on above: Performed By: #### N UM #### [facility] ([address] [address] VIR SPECIFIC GRAVITY [place] >=1.030 Abnormal 1.010, 1.015, 1.020, 1.[address] [facility] Comment on above: Performed By: #### N UM #### [facility] ([address] [address] VIR UROBILINOGEN [place] 0.2 E.U./dL Normal [facility] Comment on above: Performed By: #### N UM #### [facility] ([address] [address] VIR POCT , URINE (NUCG) on 10-13-2024 Beta HCG ( test) Ql (U) Negative Normal Negative, Indeterminate [facility] Comment on above: Performed By: #### B MP #### [facility] ([address] [address] VIR SALICYLATE LEVELon SALICYLATE <^4.0 Normal 2.0-25.[address] [facility] Comment on above: Order Comment: Refer ence ranges are for therapeutic limits. Performed By: #### S ALI #### [facility] ([address] [place] [address] VIR THYROID PROFILE INCLUDES TSH FT4on 10-13-2024 Free T4 [Mass/Vol] 0.79 ng/dL Normal 0.61-1.60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 Medications: None. Immunizations: Up to date. Menstrual history: Last menstrual period: Date 09/25/2018. Past Medical/ Family/ Social History Medical history: Negative. Surgical history: Negative. Social history: Social & Psychosocial Habits Alcohol 10/23/2018 Alcohol Use: Never Employment/School 10/23/2018 Status: Student Substance Abuse 10/23/2018 Substance use: Never Tobacco 10/23/2018 Smoking tobacco use: Never (less than 100 in l . Physical Examination General: Alert, no acute distress. Skin: Warm, dry, intact, no pallor, no rash. Head: Normocephalic, atraumatic. Neck: Supple, no tenderness, No localized cervical spine or paraspinal tenderness. No focal deficits.. Eye: Pupils are equal, round and reactive to light, extraocular movements are intact, normal conjunctiva. Ears, nose, mouth and throat: Oral mucosa moist. Cardiovascular: Regular rate and rhythm, No murmur, Normal peripheral perfusion, No edema, S1, S2, regular rhythm. No murmurs gallops or rubs.. Respiratory: Lungs are clear to auscultation, respirations are non-labored, breath sounds are equal, Symmetrical chest wall expansion, Lungs sounds are clear bilaterally. No wheezing rhonchi or crackles on exam.. Gastrointestinal: Soft, Nontender, Non distended, Normal bowel sounds, No organomegaly, Bowel sounds are present ?4 quadrants. Abdomen is soft, nontender, nondistended. No rigidity rebound or guarding on exam.. Back: No localized lumbar spine or paraspinal tenderness. Patient had mid upper back discomfort with palpation over the thoracic spine in which there may have been slight curvature on palpation. Patient able to bend and stand without difficulty, walked back into the emergency department without lutz abnormality. No deformities or crepitus. No step-offs.bilateral straight leg raise is negative. No CVA tenderness. No focal deficits. No bruises lacerations abrasions lesions.. Musculoskeletal: Normal ROM, normal strength, no tenderness, no swelling, no deformity, Patient has strong radial and pedal pulses bilaterally. Brisk capillary refill bilaterally. Normal range of motion of all 4 extremities. No deformities or crepitus. No focal deficits. Patient is neurovascularly intact.. Neurological: Alert and oriented to person, place, time, and situation, No focal neurological deficit observed, normal sensory observed, normal motor observed, normal speech observed, normal coordination observed, Normal sensory, motor, speech, coordination is observed on exam of the patient.. Lymphatics: No lymphadenopathy. Psychiatric: Cooperative, appropriate mood & affect, normal judgment, non-suicidal. Medical Decision Making Orders Launch Orders Laboratory: Urinalysis with Culture, if indicated Standard (Order): Urine, Stat collect, 10/23/18 12:06 EDT, Nurse collect Test Urine 1 (Order): Urine, Stat collect, 10/23/18 12:06 EDT, Nurse collect Radiology: XR Spine Thoracic 3 Views (Order): 10/23/18 12:06 EDT Stat, injury x 2 years ago, pt was jumping on trampoline, friend fell on top of her, still has mid upper back pain, Allow Modification Per Radiologist, Transport Mode: Wheelchair. Results review: Lab results : Lab Flowsheet 10/23/18 12:07 EDT U Preg Negative UA Color YELLOW UA Clarity CLEAR UA Glucose NEGATIVE UA Ketones NEGATIVE UA Spec Grav 1.010 UA Blood TRACE UA pH 6.0 UA Protein NEGATIVE mg/dL UA Urobilinogen 0.2 mg/dL UA Nitrite NEGATIVE UA Leuk Est NEGATIVE UA Bilirubin NEGATIVE Urine Source Clean Catch Micro? Indicated Culture? No UA WBC 0-2 UA RBC Rare UA Squam Epi Few UA Bacteria Trace . Radiology results: X-ray, Thoracic spine, reviewed radiologist's report, interpretation: * Preliminary Report * Reason For Exam injury x 2 years ago, pt was jumping on trampoline, friend fell on top of her, still has mid upper back pain REPORT Preliminary report only IMPRESSION: No acute osseous abnormality. Scoliosis convex to the right Signature Line Preliminary Report Dictated by: Arpit Vigil Dictated DT/TM: 10/23/18 1:19 pm Technologist: ALBA BROWNING. Reexamination/ Reevaluation 12:38 Urine preg negative. 13:16 Urinalysis negative. 13:26 I discussed with pt and mom pts XR thoracic spine being negative for any acute fractures or dislocations. It appears pt has scoliosis, with convexity to the right. This may be causing pts back discomfort. She will need to follow up with her primary care provider in the next 3-5 days for referral to back specialist for evaluation of scoliosis. Patient may continue Tylenol or ibuprofen as needed for discomfort, ice or heat as needed for discomfort at bedtime. They understand the return here to the emergency department for any worsening or concerning symptoms. Patient and mom both agree and understand plan of care. Impression and Plan Diagnosis Scoliosis ([id number] M41, Discharge, Medical) Chronic back pain ([id number] M54.9, Discharge, Medical) Plan Condition: Stable. Disposition: Discharged: Time 10/23/18 13:28:00, to home. Patient was given the following educational materials: Back Pain, Pediatric, Scoliosis, Scoliosis, Back Pain, Pediatric. Follow up with: LINSEY VINSON Within 3 to 5 days Please follow up with your jose r primary care provider in 3-5 days. Your child was seen and evaluated in the emergency department today for mid upper back pain x 2 years. She has XR of the thoracic spine completed, which is negative for fracture, or broken bone. It showed a curvature of the spine, which they read as scoliosis. You will need to follow up with your jose r primary care provider in regards to the scoliosis noted on XR. She may continue tylenol or ibuprofen as needed for discomfort, you may also use ice or heat as needed. You may return here to the emergency department for any worsening or concerning symptoms. . Counseled: Patient, Family, Regarding diagnosis, Regarding diagnostic results, Regarding treatment plan, Patient indicated understanding of instructions. Notes: 12-year-old female presented here to the emergency department with her mom this afternoon with chief complaint of upper back pain. Patient states she's had issues with upper back pain over the last 2 years. Mom was concerned this may be related to injury in which she was jumping on tr[place] 2 [place] ago [place] when her heavier friend landed on top of her upper back. Mom states she did not think that much of that time until she may just have a strain however patient has complained especially in the evening at nighttime prior to going to bed. Patient denies trying any Tylenol or ibuprofen and ice or heat for the back pain. Mom states they had extreme difficulty getting to see primary care provider which they came here to the emergency department for evaluation in regards to the continued upper mid back pain. Patient denied any dysuria hematuria or urinary urgency or frequency. Last menstrual cycle was at the end of September she denies any chance of . States ventral cycles are regular. She denied any abdominal pain nausea vomiting diarrhea she denied any chest pain or shortness of breath. Has immunizations are up to date. They had no other concerns at this time. Mom and patient following exam image patient did have some mid to upper thoracic spine tenderness in between both shoulder blades. It is enough patient may have slight curvature at the top portion of the spine. Patient was sent for x-ray which did show a convexity to the right which was scoliosis read by radiology. No concern for fracture or compression fracture. I spoke with patient and mother in regards to scoliosis and a treatments in which patient should follow-up with primary care physician for referral to spine position if she has continued pain. They will continue Tylenol ibuprofen as needed for discomfort ice and heat the mid to upper back. They understand the return here to the emergency department for any worsening or concerning symptoms which we discussed and patient and mother both understood.. [Electronically Signed on: 10/23/2018 13:53 EDT] Tulio Guan PA-C [Verified on: 10/23/2018 13:53 EDT] Tulio Guan PA-C [facility] ED Note-Nursingon 10-23-2018 ED Note-Nursing Pt taken to for urine specimen, instructions provided. [facility] ED Note-Nursing PT ARRIVED IN ED W/ CC OF CHRONIC BACK PAIN FROM A MINOR INJURY ABOUT 2 YEARS AGO. PT HAS NOT BEEN SEEN BY PCP, THERAPY, OR PAIN MANAGEMENT. PT IS ALERT AND ORIENTED AND AMBULATED TO ED ROOM 3 W/O DIFFICULTY OR INCIDENT. [facility] ED Note-Nursing Pt ambulated to room #3, mother at bedside. C/O back pain from a friend falling on pt years ago. [facility] ED Patient Education Noteon 10-23-2018 ED Patient Education Note Education Materials Orthopedics Scoliosis Scoliosis is a condition of having a spine that curves sideways. The curve in the spine is usually an S or C shape. Scoliosis can affect people at any age, but it is more common among children and adolescents. The curvature of the spine is measured by angles in degrees. What are the causes? The cause of scoliosis is not always known. It may be caused by: ? A defect. ? A disease that can cause problems in the muscles (muscular dysfunction) or imbalance of the body, such as cerebral palsy or muscular dystrophy. What increases the risk? You are more likely to develop scoliosis if you have a disease that causes muscle dysfunction or imbalance. What are the signs or symptoms? This condition may not cause any symptoms. If you do have symptoms, they may include: ? Leaning to one side. ? Sunken chest and uneven shoulders. ? One side of the body being different or larger than the other side (asymmetry). ? An abnormal curve in the back. ? Pain, which may limit physical activity. ? Shortness of breath. ? Bowel or bladder control problems, such as not knowing when you have to go. This can be a sign of nerve damage. How is this diagnosed? This condition is diagnosed based on: ? Your medical history. ? Your symptoms. ? A physical exam. This may include: ? Examining your nerves, muscles, and reflexes (neurological exam). ? Testing the movement of your spine (range of motion study). ? Imaging tests, such as: ? X-rays. ? MRI. How is this treated? Treatment for this condition depends on the severity of the symptoms. Treatment may include: ? Observation to make sure that your scoliosis does not get worse (progress). You may need to have regular visits with your health care provider. ? A back brace to prevent scoliosis from progressing. This may be needed during times of fast growth (growth spurts), such as during adolescence. ? Medicine to help relieve pain. ? Physical therapy. ? Surgery. Follow these instructions at home: If you have a brace: ? Wear the brace as told by your health care provider. Remove it only as told by your health care provider. ? Loosen the brace if your fingers or toes tingle, become numb, or turn cold and blue. ? Keep the brace clean. ? If the brace is not waterproof: ? Do not let it get wet. ? Cover it with a watertight covering when you take a bath or a shower. General instructions ? Take gwmf-rjw-hanvvnl and prescription medicines only as told by your health care provider. ? Do?not drive or use heavy machinery while taking prescription pain medicine. ? If physical therapy was prescribed, do exercises as instructed. ? Before starting any new sports or physical activities, ask your health care provider whether they are safe for you. ? Keep all follow-up visits as told by your health care provider. This is important. Contact a health care provider if: ? You have problems with your back brace, such as skin irritation or discomfort. ? You have back pain that does not get better with medicine. Get help right away if: ? Your legs feel weak. ? You cannot move your legs. ? You cannot control when you urinate or pass stool (loss of bladder or bowel control). Summary ? Scoliosis is a condition of having a spine that curves sideways. The curve in the spine is usually an S or C shape. ? This condition may be caused by defects or diseases that affect muscles and body balance. ? Follow your health care provider's instructions about wearing a brace, doing physical activities, and keeping follow-up visits. This information is not intended to replace advice given to you by your health care provider. Make sure you discuss any questions you have with your health care provider. Document Released: 03/19/2001 Document Revised: 06/15/2017 Document Reviewed: 09/24/2016 [employer] Patient Education ? 2019 [employer] Back Pain, Pediatric Low back pain and muscle strain are the most common types of back pain in children. They usually get better with rest. It is uncommon for a child under age 10 to complain of back pain. It is important to take complaints of back pain seriously and to schedule a visit with your child's health care provider. Follow these instructions at home: ? Avoid actions and activities that worsen pain. In children, the cause of back pain is often related to soft tissue injury, so avoiding activities that cause pain usually makes the pain go away. These activities can usually be resumed gradually. ? Only give mwyc-tlf-hjxcsst or prescription medicines as directed by your child's health care provider. ? Make sure your child's backpack never weighs more than 10% to 20% of the child's weight. ? Avoid having your child sleep on a soft mattress. ? Make sure your child gets enough sleep. It is hard for children to sit up straight when they are overtired. ? Make sure your child exercises regularly. Activity helps protect the back by keeping muscles strong and flexible. ? Make sure your child eats healthy foods and maintains a healthy weight. Excess weight puts extra stress on the back and makes it difficult to maintain good posture. ? Have your child perform stretching and strengthening exercises if directed by his or her health care provider. ? Apply a warm pack if directed by your child's health care provider. Be sure it is not too hot. Contact a health care provider if: ? Your child's pain is the result of an injury or athletic event. ? Your child has pain that is not relieved with rest or medicine. ? Your child has increasing pain going down into the legs or buttocks. ? Your child has pain that does not improve in 1 week. ? Your child has night pain. ? Your child loses weight. ? Your child misses sports, gym, or recess because of back pain. Get help right away if: ? Your child develops problems with walking?or refuses to walk. ? Your child has a fever or chills. ? Your child has weakness or numbness in the legs. ? Your child has problems with bowel or bladder control. ? Your child has blood in urine or stools. ? Your child has pain with urination. ? Your child develops warmth or redness over the spine. This information is not intended to replace advice given to you by your health care provider. Make sure you discuss any questions you have with your health care provider. Document Released: 09/02/2006 Document Revised: 09/02/2016 Document Reviewed: 09/05/2013 [employer] Interactive Patient Education ? 2017 [employer]. Normal [facility] ED Patient Summaryon 019 ED Patient Summary [facility] - Emergency Department [address] [place] [address] PATIENT DISCHARGE INSTRUCTIONS Patient Information Name: DEISY WILLIS Age: 12 Years Date of : [birth year] Reason For Visit: Back pain; BACK PAIN Arrival Time: 10/23/18 11:45:00 Primary Care Physician: LINSEY VINSON Attending Physician: Jarvis Cifuentes Comment: Visit Diagnosis: Diagnoses This Visit Back pain ([id number]) Chronic back pain (M54.9) Scoliosis (M41) Prescription Information: If you have been given a prescription for narcotics, seek immediate medical attention if you have any difficulty breathing or any sudden status changes such as confusion and sleepiness. If you or anyone you know is experiencing suicidal thoughts, mental health, alcohol and/or drug addiction problems; contact the [facility] 26/10 Crisis Hotline -Text 4HOPE to 262481. If you received any narcotics, sedation, or any other medication that causes drowsiness for the next 24 hours, unless otherwise directed: ? Do not drive a car. ? Do not operate machinery such as power tools, lawn mowers, drills, sewing machines, or stoves ? Avoid alcoholic beverages and drugs for allergies, nerves, or sleep ? Do not make important personal or business decisions or sign any legal documents With: Address: When: [address], [address] [place], [place] [id number] Business (1) Within 3 to 5 days Comments: Please follow up with your jose r primary care provider in 3-5 days. Your child was seen and evaluated in the emergency department today for mid upper back pain x 2 years. She has XR of the thoracic spine completed, which is negative for fracture, or broken bone. It showed a curvature of the spine, which they read as scoliosis. You will need to follow up with your jose r primary care provider in regards to the scoliosis noted on XR. She may continue tylenol or ibuprofen as needed for discomfort, you may also use ice or heat as needed. You may return here to the emergency department for any worsening or concerning symptoms. Medication Information: The exam and treatment you received today in the [facility] Emergency Department were for an urgent problem and are not intended as complete care. It is important for you to follow up with a doctor, nurse practitioner, or physician?s sociology research assistant for ongoing care. If your symptoms become worse or you do not improve as expected and you are unable to reach your usual health care provider, you should return to the Emergency Department, we are available 24 hours a day. For those patients who have received Radiology results, the interpretation of your X-ray as given to you by our Emergency Department physician is only a preliminary report. The Radiologist will review your films and if there is a change in the diagnosis you will be notified by phone. Please make sure you have provided a working phone number so we can reach you if necessary. In the event that you had a lab culture while you were a patient in the Emergency Department, you will be notified by phone if there is a need to change your antibiotic. Please make sure you have provided a working phone number so we can reach you if necessary. [facility] Emergency Department has provided you with a complete list of medications post discharge. Please inform your reimbursement analyst/provider of your visit and for further instruction on these medications. Any specific questions regarding your chronic medications and dosages should be discussed with your primary care physician(s) and/or pharmacist. Visit Information Allergies: Substance Reaction Symptoms Type Comments No known allergies Drug Vital Signs: Vitals and Measurements this Visit (last charted value for your 10/23/2018 visit) Vital Signs This Visit Temperature Oral: 37 DegC Peripheral Pulse Rate: 93 bpm Respiratory Rate: 16 br/min Systolic Blood Pressure: 138 mmHg Diastolic Blood Pressure: 90 mmHg SpO2: 99 % Oxygen Therapy: Room air Measurements This Visit Height/Length Dosin.600 cm Height/Length Estimated: 162.600 cm Weight Dosin.000 kg Weight Estimated: 68.000 kg Problems List: Problem Onset Comments No Problems found Patient Education Scoliosis Scoliosis is a condition of having a spine that curves sideways. The curve in the spine is usually an S or C shape. Scoliosis can affect people at any age, but it is more common among children and adolescents. The curvature of the spine is measured by angles in degrees. What are the causes? The cause of scoliosis is not always known. It may be caused by: ? A defect. ? A disease that can cause problems in the muscles (muscular dysfunction) or imbalance of the body, such as cerebral palsy or muscular dystrophy. What increases the risk? You are more likely to develop scoliosis if you have a disease that causes muscle dysfunction or imbalance. What are the signs or symptoms? This condition may not cause any symptoms. If you do have symptoms, they may include: ? Leaning to one side. ? Sunken chest and uneven shoulders. ? One side of the body being different or larger than the other side (asymmetry). ? An abnormal curve in the back. ? Pain, which may limit physical activity. ? Shortness of breath. ? Bowel or bladder control problems, such as not knowing when you have to go. This can be a sign of nerve damage. How is this diagnosed? This condition is diagnosed based on: ? Your medical history. ? Your symptoms. ? A physical exam. This may include: ? Examining your nerves, muscles, and reflexes (neurological exam). ? Testing the movement of your spine (range of motion study). ? Imaging tests, such as: ? X-rays. ? MRI. How is this treated? Treatment for this condition depends on the severity of the symptoms. Treatment may include: ? Observation to make sure that your scoliosis does not get worse (progress). You may need to have regular visits with your health care provider. ? A back brace to prevent scoliosis from progressing. This may be needed during times of fast growth (growth spurts), such as during adolescence. ? Medicine to help relieve pain. ? Physical therapy. ? Surgery. Follow these instructions at home: If you have a brace: ? Wear the brace as told by your health care provider. Remove it only as told by your health care provider. ? Loosen the brace if your fingers or toes tingle, become numb, or turn cold and blue. ? Keep the brace clean. ? If the brace is not waterproof: ? Do not let it get wet. ? Cover it with a watertight covering when you take a bath or a shower. General instructions ? Take dwym-bhl-eevdjkw and prescription medicines only as told by your health care provider. ? Do?not drive or use heavy machinery while taking prescription pain medicine. ? If physical therapy was prescribed, do exercises as instructed. ? Before starting any new sports or physical activities, ask your health care provider whether they are safe for you. ? Keep all follow-up visits as told by your health care provider. This is important. Contact a health care provider if: ? You have problems with your back brace, such as skin irritation or discomfort. ? You have back pain that does not get better with medicine. Get help right away if: ? Your legs feel weak. ? You cannot move your legs. ? You cannot control when you urinate or pass stool (loss of bladder or bowel control). Summary ? Scoliosis is a condition of having a spine that curves sideways. The curve in the spine is usually an S or C shape. ? This condition may be caused by defects or diseases that affect muscles and body balance. ? Follow your health care provider's instructions about wearing a brace, doing physical activities, and keeping follow-up visits. This information is not intended to replace advice given to you by your health care provider. Make sure you discuss any questions you have with your health care provider. Document Released: 03/19/2001 Document Revised: 06/15/2017 Document Reviewed: 09/24/2016 [employer] Patient Education ? 2019 [employer] Back Pain, Pediatric Low back pain and muscle strain are the most common types of back pain in children. They usually get better with rest. It is uncommon for a child under age 10 to complain of back pain. It is important to take complaints of back pain seriously and to schedule a visit with your child's health care provider. Follow these instructions at home: ? Avoid actions and activities that worsen pain. In children, the cause of back pain is often related to soft tissue injury, so avoiding activities that cause pain usually makes the pain go away. These activities can usually be resumed gradually. ? Only give trxw-otv-ndnihbl or prescription medicines as directed by your child's health care provider. ? Make sure your child's backpack never weighs more than 10% to 20% of the child's weight. ? Avoid having your child sleep on a soft mattress. ? Make sure your child gets enough sleep. It is hard for children to sit up straight when they are overtired. ? Make sure your child exercises regularly. Activity helps protect the back by keeping muscles strong and flexible. ? Make sure your child eats healthy foods and maintains a healthy weight. Excess weight puts extra stress on the back and makes it difficult to maintain good posture. ? Have your child perform stretching and strengthening exercises if directed by his or her health care provider. ? Apply a warm pack if directed by your child's health care provider. Be sure it is not too hot. Contact a health care provider if: ? Your child's pain is the result of an injury or athletic event. ? Your child has pain that is not relieved with rest or medicine. ? Your child has increasing pain going down into the legs or buttocks. ? Your child has pain that does not improve in 1 week. ? Your child has night pain. ? Your child loses weight. ? Your child misses sports, gym, or recess because of back pain. Get help right away if: ? Your child develops problems with walking?or refuses to walk. ? Your child has a fever or chills. ? Your child has weakness or numbness in the legs. ? Your child has problems with bowel or bladder control. ? Your child has blood in urine or stools. ? Your child has pain with urination. ? Your child develops warmth or redness over the spine. This information is not intended to replace advice given to you by your health care provider. Make sure you discuss any questions you have with your health care provider. Document Released: 09/02/2006 Document Revised: 09/02/2016 Document Reviewed: 09/05/2013 [employer] Patient Education ? 2017 [employer] Viruses or Bacteria What?s got you sick? Antibiotics only treat bacterial infections. Viral illnesses cannot be treated with antibiotics. When an antibiotic is not prescribed, ask your healthcare professional for tips on how to relieve symptoms and feel better. Usual Cause Illness Viruses Bacteria Antibiotic Needed Cold/Runny Nose NO Bronchitis/Chest Cold (in otherwise healthy children and adults) NO Whooping Cough Yes Flu NO Strep Throat Yes Sore Throat (except strep) NO Fluid in the middle ear (otitis media with effusion) NO Urinary Tract Infection Yes Antibiotics Aren?t Always the Answer www.cdc.gov/getsmart GET SMART Know When Antibiotics Work U.S. Department of Health and Human Services Centers for Disease Control and Prevention December 2013 [facility] Test Urine 1on U Preg Negative [facility] Comment on above: Performed By: #### 1 [id number], [id number], [id number] #### [facility] (DEFAULT) [address] [place] [address] U Preg Internal Control Pass [facility] Comment on above: Performed By: #### 1 [id number], [id number], [id number] #### [facility] (DEFAULT) [address] [place] [address] UA [id number] 10-23-2018 RBC (U) [#/Vol] Rare [facility] Comment on above: Order Comment: Urina lysis Microscopic order added on by [employer] Expert Rules system. Performed By: #### 1 [id number], [id number], [id number] #### [facility] (DEFAULT) [address] [place] [address] UA Bacteria Trace [facility] Comment on above: Order Comment: Urina lysis Microscopic order added on by [employer] Rules system. Performed By: #### 1 [id number], [id number], [id number] #### [facility] (DEFAULT) [address] [place] [address] UA Squam Epi Few [facility] Comment on above: Order Comment: Urina lysis Microscopic order added on by [employer] Rules system. Performed By: #### 1 [id number], [id number], [id number] #### [facility] (DEFAULT) [address] [place] [address] UA WBC 0-2 Normal [facility] Comment on above: Order Comment: Urina lysis Microscopic order added on by [employer] Rules system. Performed By: #### 1 [id number], [id number], [id number] #### [facility] (DEFAULT) [address] [place] [address] UA w Culture if Ind Standard on 10-23-2018 Breakpoint UA [facility] Comment on above: Performed By: #### 1 [id number], [id number], [id number] #### [facility] (DEFAULT) [address] [place] [address] Color (U) YELLOW [facility] Comment on above: Performed By: #### 1 [id number], [id number], [id number] #### [facility] (DEFAULT) [address] [place] [address] Culture? No Normal [facility] Comment on above: Performed By: #### 1 [id number], [id number], [id number] #### [facility] (DEFAULT) [address] [place] [address] Glucose (U) [Mass/Vol] Negative [facility] Comment on above: Performed By: #### 1 [id number], [id number], [id number] #### [facility] (DEFAULT) [address] [place] [address] Ketones Ql (U) Negative [facility] Comment on above: Performed By: #### 1 [id number], [id number], [id number] #### [facility] (DEFAULT) [address] [place] [address] Micro? Indicated [facility] Comment on above: Performed By: #### 1 [id number], [id number], [id number] #### [facility] (DEFAULT) [address] [place] [address] UA Bilirubin Negative Normal [facility] Comment on above: Performed By: #### 1 [id number], [id number], [id number] #### [facility] (DEFAULT) [address] [place] [address] UA Blood TRACE Abnormal NEGATIVE [facility] Comment on above: Performed By: #### 1 [id number], [id number], [id number] #### [facility] (DEFAULT) [address] [place] [address] UA Clarity CLEAR Normal CLEAR [facility] Comment on above: Performed By: #### 1 [id number], [id number], [id number] #### [facility] (DEFAULT) [address] [place] [address] UA Leuk Est Negative Normal NEGATIVE [facility] Comment on above: Performed By: #### 1 [id number], [id number], [id number] #### [facility] (DEFAULT) [address] [place] [address] UA Nitrite Negative Normal NEGATIVE [facility] Comment on above: Performed By: #### 1 [id number], [id number], [id number] #### [facility] (DEFAULT) [address] [place] [address]79[address] UA pH 6.0 5-8 [facility] Comment on above: Performed By: #### 1 [id number], [id number], [id number] #### [facility] (DEFAULT) [address] [place] [address]44[address] UA Protein Negative Normal NEGATIVE [facility] Comment on above: Performed By: #### 1 [id number], [id number], [id number] #### [facility] (DEFAULT) [address] [place] [address] UA Spec Grav 1.010 1.001-1.035 [facility] Comment on above: Performed By: #### 1 [id number], [id number], [id number] #### [facility] (DEFAULT) [address] [place] [address] UA Urobilinogen 0.2 mg/dL Normal 0.2-1.0 [facility] Comment on above: Performed By: #### 1 [id number], [id number], [id number] #### [facility] (DEFAULT) [address] [place] [address] Urine Source Clean Catch [facility] Comment on above: Performed By: #### 1 [id number], [id number], [id number] #### [facility] (DEFAULT) [address] [place] [address] XR Spine Thoracic 3 Viewson 10-23-2018 XR Spine Thoracic 3 Views EXAM: XR Spine Thoracic 3 Views HISTORY: injury x 2 years ago, pt was jumping on trampoline, friend fell on top of her, still has mid upper back pain COMPARISON: None. TECHNIQUE: 4 radiographic views of the thoracic spine. FINDINGS: Scoliosis is noted in the thoracic spine convex to the right. No fracture or subluxation is identified. There is no worrisome focal lucent or sclerotic osseous lesion. No hemivertebrae are identified. IMPRESSION: No acute osseous abnormality. Scoliosis convex to the right. Final Dictated by: Arpit Vigil Dictated DT/TM: 10/23/18 1:19 Signed (Electronic Signature): Arpit Vigil 10/23/18 2:30 pm Technologist: ALBA BROWNING [facility] Vital Signs Date Time Vital Sign Value Performing Clinician Edwin hammond 10-25-2024 11:02-0400 Body height 165.1 cm Apple ISAACP Work Phone: [place] 10-25-2024 11:02-0400 Body mass index (BMI) [Percentile] Per age and sex 94 % Apple MALAGONCNP Work Phone: [place] 10-25-2024 11:02-0400 Body mass index (BMI) [Ratio] 30.79 kg/m2 Apple MALAGONCNP Work Phone: [place] 10-25-2024 11:02-0400 Body weight 83.92 kg Apple MALAGONCNP Work Phone: [place] 10-25-2024 11:02-0400 Diastolic blood pressure 73 mm[Hg] Apple Fields WHCNP Work Phone: [place] 10-25-2024 11:02-0400 Heart rate 81 /min Apple Fields WHCNP Work Phone: [place] 10-25-2024 11:02-0400 Systolic blood pressure 125 mm[Hg] Apple Fields WHCNP Work Phone: [place] 10-25-2024 11:01-0400 Body height 165.1 cm Apple Fields WHCNP Work Phone: [place] 10-16-2024 08:23-0400 Body weight 81.46 kg PHYSICIAN NO [facility] 10-16-2024 07:30-0400 Body temperature 98.2 [degF] PHYSICIAN NO [facility] 10-16-2024 07:30-0400 Diastolic blood pressure 71 mm[Hg] PHYSICIAN NO [facility] 10-16-2024 07:30-0400 Heart rate 77 /min PHYSICIAN NO [facility] 10-16-2024 07:30-0400 SaO2% (BldA) [Mass fraction] 100 % PHYSICIAN NO [facility] 10-16-2024 07:30-0400 Systolic blood pressure 110 mm[Hg] PHYSICIAN NO [facility] 10-15-2024 22:20-0400 Respiratory rate 18 /min PHYSICIAN NO [facility] 10-14-2024 02:13-0400 Body height 165.1 cm PHYSICIAN NO [facility] 10-12-2024 16:17-0400 Body height 165.1 cm PHYSICIAN NO [facility] 10-12-2024 16:17-0400 Body temperature 98.1 [degF] PHYSICIAN NO [facility] 10-12-2024 16:17-0400 Body weight 85.1 kg PHYSICIAN NO [facility] 10-12-2024 16:17-0400 Diastolic blood pressure 87 mm[Hg] PHYSICIAN NO [facility] 10-12-2024 16:17-0400 Heart rate 88 /min PHYSICIAN NO [facility] 10-12-2024 16:17-0400 Respiratory rate 16 /min PHYSICIAN NO [facility] 10-12-2024 16:17-0400 SaO2% (BldA) [Mass fraction] 100 % PHYSICIAN NO [facility] 10-12-2024 16:17-0400 Systolic blood pressure 131 mm[Hg] PHYSICIAN NO [facility] 02-22-2024 14:54-0500 Body height 165.1 cm Shelley Martinez APRN Work Phone: [facility] 02-22-2024 14:54-0500 Body mass index (BMI) [Percentile] Per age and sex 94.2 % Shelley Martinez APRN Work Phone: [facility] 02-22-2024 14:54-0500 Body mass index (BMI) [Ratio] 30.4 kg/m2 Shelley Martinez APRN Work Phone: [facility] 02-22-2024 14:54-0500 Body temperature 99.3 [degF] Shelley Martinez APRN Work Phone: [facility] 02-22-2024 14:54-0500 Body weight 83 kg Shelley Martinez APRN Work Phone: [facility] 02-22-2024 14:54-0500 Diastolic blood pressure 68 mm[Hg] Shelley Martinez APRN Work Phone: [facility] 02-22-2024 14:54-0500 Heart rate 106 /min Shelley Martinez APRN Work Phone: [facility] 02-22-2024 14:54-0500 Respiratory rate 18 /min Shelley Martinez APRN Work Phone: [facility] 02-22-2024 14:54-0500 SaO2% (BldA) [Mass fraction] 96 % Shelley Martinez APRN Work Phone: [facility] 02-22-2024 14:54-0500 Systolic blood pressure 108 mm[Hg] Shelley Martinez RU Work Phone: [facility] 05-17-2023 10:13-0500 Body height 165.1 cm Luis F Pratt DO Work Phone: [facility] Encounters Encounter Date Encounter Type Care Provider Facility Start: 11-02-2024 ambulatory Apple Fields [facility] Start: 11-02-2024 Encounter for gynecological examination (general) (routine) without abnormal findings Apple Fields [facility] Start: 10-30-2024 End: 10-30-2024 Encounter identifier Apple ISAAC Work Phone: [place] Start: 10-25-2024 End: 10-25-2024 Encounter for gynecological examination (general) (routine) without abnormal findings Apple Fields [facility] Work Phone: [place] Start: 10-25-2024 End: 10-25-2024 Initial preventive medicine new pt age 18-39yrs Apple Fields [facility] Work Phone: [place] Start: 10-14-2024 Non-patient / Non-visit Johnnie hansen MD -[facility] Work Phone: Start: 10-13-2024 End: 10-14-2024 Emergency department patient visit JUSTA CARDONA [facility] Start: 10-13-2024 Encounter for other general examination CYDNEY Jaramillo MIRIAM [facility] Start: 10-13-2024 End: 10-16-2024 ambulatory PHYSICIAN NO FAMILY Facility:[facility] Start: 10-13-2024 [facility] Start: 10-12-2024 End: 10-12-2024 Emergency department patient visit PHYSICIAN NO FAMILY -Emergency Room Work Phone: Start: 02-22-2024 End: 02-22-2024 ambulatory Shelley Martinez [facility] Work Phone: Start: 02-22-2024 End: 02-22-2024 Departed Referred Shelley Michelle VENCES Work Phone: [facility] [place] Work Phone: Start: 02-22-2024 End: 02-22-2024 Patient encounter procedure Shelleyduyen Martinez APRN Work Phone: [facility] Work Phone: Start: 05-17-2023 End: 05-17-2023 ambulatory LUIS F PRATT [facility] Start: 05-17-2023 End: 05-17-2023 Office outpatient visit 25 minutes Luis F Pratt DO Work Phone: [facility] Comment on above: History of spinal fu oneil for scoliosis (Primary Dx); Adolescent idiopathic scoliosis of thoracolumbar region Start: 05-13-2023 Orders Only [facility] Comment on above: History of spinal fu oneil for scoliosis (Primary Dx) Start: 03-10-2022 End: 03-10-2022 ambulatory SUSAN RODRIGUES Facility:[facility] Start: 02-24-2022 End: 02-24-2022 ambulatory ZULEMA RAMOS Facility:[facility] Start: 01-13-2022 End: 01-13-[address] KRISTAN CHAWLA Facility:[facility] Procedures Date Procedure Procedure Detail Performing Clinician Start: 10-25-2024 End: 10-25-2024 Anxiety Apple ISAACP Work Phone: Start: 10-25-2024 End: 10-25-2024 Arthritis Apple ISAACP Work Phone: Start: 10-25-2024 End: 10-25-2024 BP scrn perf rec interval Apple MALAGON [employer] Work Phone: Start: 10-25-2024 End: 10-25-2024 DIAST BP < 80 MM HG Apple ISAACP Work Phone: Start: 10-25-2024 End: 10-25-2024 Scr dep neg, no plan reqd Apple Fields [facility] Work Phone: Start: 10-25-2024 End: 10-25-2024 SYST BP < 130 MM HG Apple ISAACP Work Phone: Start: 10-25-2024 End: 10-25-2024 [facility]CO [facility] Start: 10-12-2024 Plain X-ray of right elbow PHYSICIAN NO FAMILY Start: 02-22-2024 Quick Strep (POC) Yakelin Martinez APRN Work Phone: Plan of Treatment Date Care Activity Detail Author Start: 01-03-2025 [facility] Work Phone: Start: 12-15-2024 [facility] Work Phone: Start: 10-30-2024 [facility] Work Phone: Start: 10-25-2024 Dietary management education, guidance, and counseling Dietary management education, guidance, and counseling [facility] Start: 10-25-2024 [facility] Work Phone: Start: 10-16-2024 [facility] Start: 10-14-2024 Hospital admission [facility] Start: 02-22-2024 Bacteria identified in Throat by Aerobe culture [facility] Start: 02-22-2024 Throat culture Throat Culture [facility] Start: 01-26-2024 Tobacco Screening Tobacco Screening [facility] Start: 07-23-2023 Adult BMI Screening Adult BMI Screen ing [facility] Start: 05-17-2023 End: 05-13-2024 XR Thoracic and lumbar spine Views for scoliosis X-ray spine scoliosis 2 or 3 views Imaging Routine History of spinal fusion for scoliosis Expected: 05/17/2023, Expires: 05/13/2024 [facility] Work Phone: Comment on above: Expected: 05/17/2023 , Expires: 05/13/2024 Start: 05-17-2023 End: 05-17-2023 Patient encounter procedure 05/17/2023 10:30 AM EST Office Visit [facility] [address] [place] [phone] Luis F Pratt DO [address] [place] [address] [facility] Start: 05-17-2023 End: 05-17-2023 Professional / ancillary services management 05/17/2023 10:30 AM EST Ancillary Procedure [facility] [address] [place] [phone] [facility] Start: 12-04-2022 Influenza vaccination Influenza Vacc ine [facility] Start: 2020 MCV (2 - 2-dose series) MCV (2 - 2-dose series) [facility] Start: 06-27-2018 DTaP,Tdap and Td Vaccines (4 - Td or Tdap) DTaP,Tdap and Td Vaccines (4 - Td or Tdap) [facility] Start: 2016 Depression Screening Depression Scre ening [facility] Start: 11-22-2015 HPV Vaccines (1 - 2- dose series) HPV Vaccines (1 - 2-dose series) [facility] Start: 05-02-2011 IPV Vaccines (3 of 3 - 4-dose series) IPV Vaccines (3 of 3 - 4-dose series) [facility] Start: 2008 MMR Vaccines (2 of 2 - Standard series) MMR Vaccines (2 of 2 - Standard series) [facility] Start: 2008 Varicella Vaccines ( 2 of 2 - 2-dose childhood series) Varicella Vaccines (2 of 2 - 2-dose childhood series) [facility] Start: 2005 Hepatitis A Vaccines (1 of 2 - 2-dose series) Hepatitis A Vaccines (1 of 2 - 2-dose series) [facility] Start: 02-24-2005 Hepatitis B Vaccines (2 of 3 - 3-dose series) Hepatitis B Vaccines (2 of 3 - 3-dose series) [facility] Start: 2004 Tobacco Counseling Tobacco Counselin g [facility] Patient Education [facility] Work Phone: Patient referral [facility] Work Phone: Immunizations Immunization Date Immunization Notes Care Provider Genevieve alves 10-30-2010 poliovirus vaccine, unspecified formulation Ban Lyons [facility] 01-28-2006 measles, mumps and rubella virus vaccine Ban Lyons [facility] 01-28-2006 varicella virus vaccine Ban Bennett on [facility] Payers Date Payer Category Payer Self-pay 2024 Unknown [id number] 2019 Private Health Insurance [id number] 2019 Private Health Insurance [facility] [id number] 2019-Present [phone] [address] [address] [place] [address] [id number] 2004 Unknown [id number] .1286 2004 Unknown [id number] .1286 2004 Unknown [id number] [id number] .1286 2004 Unknown [id number] [id number] .716 1981 Unknown [id number] [id number] .593 1981 Unknown [id number] [id number] .593 1981 Unknown [id number] [id number] .593 1959 Unknown [id number] Unknown [id number] [id number] .531 Unknown [id number] [id number] .531 Unknown [id number] [id number] .531 Unknown [id number] .531 Social History Date Type Detail Facility Start[facility] Start: 02-23-2024 Sex Female (finding) [facility] Start: 2005 Sex Assigned At Female [facility] Start: 05-05-2022 End: 10-14-2024 Tobacco smoking status NHIS Smokes tobacco daily [facility] Start: 04-05-2020 History of tobacco use Tobacco Use Types Packs/Day Years Used Date Smoking Tobacco: Every Day Vaping/E-cigarettes Started: 2020 Passive Smoke Exposure: Current Smokeless Tobacco: Never [facility] History of tobacco use Passive smoker [facility] Start: 05-05-2022 Tobacco use and exposure Smokeless tobacco non-user [facility] Start: 01-25-2023 End: 05-17-2023 Alcohol intake Lifetime non-drinker (finding) [facility] Start: 05-03-2020 End: 01-25-2023 History of Social function [facility] Start: 05-03-2020 End: 01-25-2023 Tobacco use panel [facility] Childcare Unknown [facility] Start: 05-05-2022 Tobacco Comment [facility] Start: 2005 Sex Assigned At Not on file P [facility] Start: 10-25-2024 Alcohol intake Alcohol Use Details E [facility] Start: 10-25-2024 Tobacco use and exposure Non-Smoking Tobacco Use Details [facility] Sexual Orientation Straight or heterosexual [facility] Work Phone: NEGATED: Highlighted row N [facility] NEGATED: Highlighted rowStart: 10-25-2024 Tobacco smoking status NHIS Never smoker [facility] NEGATED: Highlighted rowStart: 10-25-2024 History of tobacco use Current non-smoker [facility] Medical Equipment Procedure Code Equipment Code Equipment Origin al Text Equipment Identifier Dates Graft Bn Canc 1- 4mm 30ml Frzn Chp [facility] Rdgrf - [id number] - [id number] Start: 05-19-2022 Andre Spnl Reline 500mm 5.5mm Ti Str Ns - [id number] Start: 05-19-2022 Screw Bn 40mm 6. 5mm Uniplanar Spne Reline-O 2s Ns - [id number] Start: 05-19-2022 Clinical Notes 05-17-2023 to 10-25-2024 Note Date & Type Note Facility 10-25-2024 Evaluation note Type assessment Encounter for gyneco logical examination (general) (routine) without abnormal findings assessment Body mass index [BMI] 30.0-30.9, adult assessment - STD heterosexual behavior assessment - STD cultures assessment OCP initial Rx [facility] Work Phone: [phone] History of Present illness Narrative* Encounter Date Complaint History Of Prese nt Illness annual exam The client state s using condoms, male for control. Last LMP was 10/11/2024. Patient's menses is regular with normal flow with a frequency of every 28 days. Positive for dysmenorrhea. Negative for menorrhagia. Negative for: breast discharge, breast lump(s), breast pain and breast self exam. The client does not use tobacco. Additional information: Patient is here to establish care and desires cervical culture. Her roommate was recently Dx with chlamydia and she has a fear of catching it through sharing common house hold items. They do not share the same d=sexual partners. She is currently using condoms to prevent and desires to change to OCPs. Denies contraindications. Menses are regular and not too heavy or painful. . vaginal discharge/itching Presen tly the client is experiencing vaginal itching, vaginal irritation, vaginal odor and vaginal discharge. Color is green. Last menstrual period was 10/11/2024. [facility] Work Phone: [phone] Instructions* Date Instruction Additional Infor judson Encouraged good diet lorena intake, exercise and healthy lifestyle choices. Recommend daily multi-vitamin with Folic acid. Understands the need for non-violent partners in a consensual relationship. Patient does not desire a in the near future. Reviewed control options for prevention and desires to start OCPs Related to Encounter for gynecological examination (general) (routine) without abnormal findings cervical cultures ob tained and sent to lab. Patient to call in 1 week for result. Stress importance of using condoms to prevent STDs in the future.Discussed STDs in detail and reassurance given that patient cannot catch STDs through sharing common items in a home. Related to - STD cultures Discussed all BC opt ions. Patient desires to start Sprintec with the onset of her next menses. Encouraged to take one tablet daily. If misses a pill take it as soon as she remembers. If she missed two tablets take two one day and two the next day. Encouraged to use a back up form of BC like condoms to prevent STDs. RTC 10 week for OCP follow up Related to OCP initial Rx Giving encouragement to exercise Related to Body mass index [BMI] 30.0-30.9, adult Dietary management e ducation, guidance, and counseling Related to Body mass index [BMI] 30.0-30.9, adult Giving encouragement to exercise Related to Body mass index [BMI] 30.0-30.9, adult Dietary management e ducation, guidance, and counseling Related to Body mass index [BMI] 30.0-30.9, adult [facility] Work Phone: [phone] 560-810307-14-2025 Hospital Discharge instructions Additional Instructions Important Contact Information You can call [facility] at [phone] any time day or night if you have emergent questions or question regarding discharge instructions. If at any time you are feeling an increase in your psychiatric symptoms, call your physician or behavioral healthcare provider. If any time you have thoughts of harming yourself or others contact one of the following: Call 8-8 (available 26/10) Crisis Text Line (available 26/10) text 4HOPE to [phone] [facility] Hope Line (available 8 a.m. Midnight) call 911-348-LUWL ([phone]) [facility] Work Phone: 1(153) 395-706307-12-2025 Evaluation note* Diagnosis Onset Date Resolution Status Admit Date Acute depression acute October 1:10am [facility] Work Phone: [phone] 628-542507-10-2025 Hospital Discharge instructions Additional Instructions Rest, ice, elevate the right elbow. Take lmkt-[id number]-tgivtab Tylenol Motrin as needed for pain or discomfort. May apply the Manny wrap daily for comfort. Follow-up with primary care provider in the next 3 to 5 days. Return here if symptoms persist or worsen.[facility] Work Phone: [phone] 951-151911-19-2024 Evaluation note* Diagnosis Onset Date Resolution Status Admit Date Acute pharyngitis acute [facility] 2023 2:37pm [facility] Work Phone: [phone] 867-227702-12-2024 History of Present illness Narrative* Luis F Pratt, - 05/17/2023 10:30 AM EST Chief Complaint Patient presents with Scoliosis HPI:Deisy Bernard is a female 17 y.o. here by herself for evaluation for her scoliosis. They underwent a posterior spinal fusion on 05/19/2022 from T3-L1 by Dr. Pratt. They are here for their 1 follow up visit. They report that pain is controlled and not requiring any pain medications. Patient denies any numbness, burning or tingling sensation. Patient denies any difficulty with movement to th ere lower extremities. She is a senior at [employer]. Review of Systems: General: No fatigue or fever Integument: No new rashes or lesions HEENT: No headaches, no hearing or vision changes Neck: No reported neck pain Respiratory: No cough or shortness of breath Cardiac: No chest pain or palpitations Gastrointestinal: No abdominal pain, nausea or vomiting Genitourinary: No frequency or urgency Musculoskeletal: Refer to history of present illness Neurologic: No changes of bladder or bowel habits Psychiatric: No hallucinations, no new anxiety concerns Endocrine: No changes in hair or nails Hematology: No easy bruising or prolonged bleeding Physical Exam: Ht 165.1 cm (5' 5 ) General: The patient is a well-developed, well-nourished 17 y.o.female, in no acute distress. Psych: Mood appropriate, pleasant Spine: Incision: Clean dry and intact with some mild subjective numbness that remains. There is no cutaneous paresthesias. There is no surrounding erythema or effusion noted. Patient does not exhibitpoint tenderness with palpation over the inferior spinous processes. Shoulders are level as is the pelvis. There is mild residual right-sided thoracic fullness remaining. Lower Extremities: Sensation to light touch is intact in the L2-S2 dermatomes. The A/PROM in the lower extremities is smooth, full, and painless. The child walks with a non-antalgic gait. The patientis able to toe walk and heel walk without pain or difficulty. They have good motor coordination. There is normal heel-toe progression. The lower extremities are without vascular insult. Knee flexion extension strength is 5/5. Ankle flexion and extension strength is 5/5. Hip flexion and extension strength is 5/5. Radiographs: PA and lateral radiographs of the spine were completed today and demonstrate stable appearance of the patient's underlying scoliosis. Remains in place without malalignment Assessment: Adolescent idiopathic scoliosis s/p posterior spinal fusion from T3- L1 on 05/19/2022 Plan: The natural history and progression of scoliosis was reviewed with the family and patient. The post-operative expectations and limitation were discussed again in detail. Multiple questions wereraised and answers given. We will continue to monitor the patient on a routine basis. Patient informs us that she is moving to [place] after her graduation from high school this spring. We discussed that she does not need to follow up with us and if she has any troubles she may certainly call the office for direction of who she should see in [place]. They were informed if any other concerns or difficulties were to arise in the interim that they should call for an appointment sooner rather than later. Patient and family understand plan of care and are in agreement. More than 30 minutes was spent reviewing radiographs of today's radiographs as well as previous x-rays. More than 50% of that time was spent with clij-tl-vvfa discussion with family and patient. - BANG PRETTY APRN-STERILE SUPERVISOR 05/17/23 10:27 AM I, LUIS F PRATT DO, personally performed the face to face evaluation on this patient. I discussed with the patient and confirmed the accuracy and completeness of the aforementioned history prepared by the webster practice provider, and I personally performed the clinical examination of the patient. I discussed the treatment plan with the patient. We would recommend follow up in 1 year however child is moving to [place]. Continued follow-up there should be arranged. [facility] Clinical Note Date No Information [facility] Work Phone: Discharge summary* Clinical Note Date No Information [facility] Work Phone: Evaluation note* Diagnosis History of spinal fusion for scoliosis- Primary documented [facility] this encounter [facility] Diagnosis History of spinal fusion for scoliosis- Primary Adolescent idiopathic scoliosis of thoracolumbar region documented in this encounter [facility] assessment information available [facility] Work Phone: Evaluation note* Type Assessment Date No Information [facility] Work Phone: History and physical note* Clinical Note Date No Information [facility] Work Phone: History of Past illness Narrative* Condition Effective Dates (start - stop) O utcome No Information [facility] Work Phone: History of Present illness Narrative* Encounter Date Complaint History Of Prese nt Illness No Information [facility] Work Phone: InstructionsNot on filedocumented in this encounter [facility] filed[facility]ed in [facility]* Date Instruction Additional Infor mation No Information [facility] Work Phone: Progress note* Clinical Note Date No Information [facility] Work Phone: Reason for referral (narrative)No reason for referral information [facility] Work Phone: Reason for referral (narrative)* Reason For Referral No Information [facility] Work Phone: Review of systems Narrative - Reported* System Pos/Neg Findings No Information [facility] Work Phone: Summary Purpose Family History Relationship Condition Age at Onset Recorded Date/T catalina father Unknown Malignant neoplasm Unknown Family Member Type Diagnosis Age At Onset No Information Advance Directives Advance Directive Response Recorded Date/ Time Advance Directives No May 01, 2020 10:29am Latest Code Status on File Code Status Date Activated Date Inactivated Comments Full Code 05/19/2022 1:53 PM 05/21/2022 1:13 PM Advance Directive Response Recorded Date/ Time Advance Directives No May 01, 2020 11:29am Directive Yes / No Effective Date File Name No Information Chief Complaint and Reason for Visit Chief Complaint Admit Date sore tonsils February 22, 2024 2:37pm Sore throat February 22, 2024 3:17pm Reason for Visit Admit Date Acute pharyngitis February 22, 2024 2:37pm Chief Complaint Admit Date right arm pain October 12, 2024 4:10 pm Chief Complaint Admit Date right arm pain October 12, 2024 4:10 pm BH October 13, 2024 11:0 0am Depression October 14, 2024 1:10 am Reason for Visit Admit Date Acute depression October 14, 2024 1:10 am Physical Exam Exam Findings Details Neck Exam Normal Palpation - Norm al. Thyroid gland - Normal. Breast Normal Inspection - Yehuda ateral: Normal. Palpation - Bilateral: Normal. Nipples - Bilateral: Normal. Lymph nodes - Normal. Abdomen Normal No abdominal ten derness. Genitourinary Normal Urethral meatus - Normal. External genitalia - Normal. Glands - Normal. Perineum - Normal. Anus - Normal. Vagina - Normal. Cervix - Normal. Uterus - Normal. Adnexa - Normal. Bladder - Normal. Psychiatric Normal Orientation - Or iented to time, place, person & situation. Appropriate mood and affect. Exam Findings Details No Information Additional Source Comments INFORMATION SOURCE (unrecogn ized section and content) DATE CREATED AUTHOR 10/29/2018 [facility] DATE CREATED AUTHOR AUTHOR'S ORGANIZ ATION 03/11/2022 [facility] DATE CREATED AUTHOR AUTHOR'S ORGANIZ ATION 05/18/2023 [facility] DATE CREATED AUTHOR AUTHOR'S ORGANIZ ATION 10/18/2024 [facility] DATE CREATED AUTHOR AUTHOR'S ORGANIZ ATION 11/04/2024 [facility] DATE CREATED AUTHOR AUTHOR'S ORGANIZ ATION 11/04/2024 [facility] Care Teams (unrecognized sec tion and content) Team Status: Inactive Member Role Status Dates Susan Rodrigues MD Primary Care Provider Active Start: February 22, 2024 End: February 22, 2024 Shelley Martinez APRN Attending Provider Active Start: February 22, 2024 End: February 22, 2024 Team Status: Inactive Member Role Status Dates Shelley Martinez APRN Attending Provider Active Start: February 22, 2024 End: February 22, 2024 [employer]ating [employer] Relationship Specialty Start Date End Date No Pcp, [place] [address] PCP - General Family Medicine 04/10/22 [employer] Coating Operator [employer] Relationship Specialty Start Date End Date No Pcp, [place] [address] PCP - General Family Medicine 04/10/22 Team Status: Active Member Role Status Dates PHYSICIAN NO FAMILY Primary Care Provider Active Team Status: Inactive Member Role Status Dates PHYSICIAN NO FAMILY Primary Care Provider Active Start: October 12, 2024 End: October 12, 2024 Rafia Santoyo APRN Emergency Provider Active S tart: October 12, 2024 End: October 12, 2024 Team Status: Active Member Role Status Dates NON STAFF Primary Care Provider Active Start: October 13, 2024 Dann Sibley MD Attending Provider Active Start: October 13, 2024 Team Status: Active Member Role Status Dates PHYSICIAN NO FAMILY Primary Care Provider Active Start: October 14, 2024 Johnnie Clements MD Admit Provider Active Start: October 14, 2024 Johnnie Clements MD Attending Provider Active St art: October 14, 2024 Johnnie Clements MD Other Provider Active Start: October 14, 2024 Name Effective Dates (start - stop) Status Members No Information Goals (unrecognized section and content) Health Concern Goal Type Priority Status No Information Reason for Visit (unrecogniz ed section and content) Reason Comments Scoliosis FOR RECORDS PERTAINING TO PATIENTS WHO ARE OR HAVE BEEN ENROLLED IN A CHEMICAL DEPENDENCY/SUBSTANCEABUSE PROGRAM, SOME INFORMATION MAY BE OMITTED. This clinical summary was aggregated from multiple sources. Caution should be exercised in using it in the provision of clinical care. This summary normalizes information from multiple sources, and as a consequence, information in this document may materially change the coding, format and clinical context of patient data. In addition, data may be omitted in some cases. CLINICAL DECISIONS SHOULD BE BASED ON THE PRIMARY CLINICAL RECORDS. [employer] provides no warranty or guarantee of the accuracy or completeness of information in this document.
[2024-11-16 15:02] LABS: Hematocrit 40.3 % (36.0-48.0); Hemoglobin 13.3 g/dL (12.0-16.0); Immature Granulocytes Abs Auto 0.06 10^3/uL (0.00-0.03); Immature Granulocytes Pct Auto 0.4 % (0.0-0.5); Lymphocytes Absolute Auto 1.3 10^3/uL (1.2-3.8); Mean Corpuscular HGB Conc 33.0 g/dL (29.9-35.2); Mean Corpuscular Hemoglobin 27.9 pg (26.7-34.0); Mean Corpuscular Volume 84.7 fL (81.0-99.0); Platelet Count 313 10^3/uL (150-450); Red Blood Count 4.76 10^6/uL (4.20-5.40); White Blood Count 15.8 10^3/uL (4.0-11.0)
[2024-11-16 15:03] LABS: Glucose Urine UA NEGATIVE (NEGATIVE)
[2024-11-16 15:05] LABS: HCG Qualitative Urine* NEGATIVE (NEGATIVE)
[2024-11-16 15:10] LABS: Cast Seen? NONE SEEN #/LPF (NONE SEEN); Crystals Seen? None Seen #/HPF (None Seen)
[2024-11-16 15:11] LABS: Urine Culture Indicated YES-FRMC
[2024-11-16 15:17] LABS: Alanine Aminotransferase 28 U/L (14-59); Albumin Globulin Ratio 1.0; Albumin Level 3.8 g/dL (3.4-5.0); Alkaline Phosphatase 83 U/L (46-116); Anion Gap 9.3; Aspartate Amino Transferase 16 U/L (15-37); Blood Urea Nitrogen 8.0 mg/dL (6.4-19.3); Calcium 9.2 mg/dL (8.5-10.1); Carbon Dioxide 27.3 mmol/L (21.0-32.0); Chloride 103 mmol/L (98-107); Estimated GFR (African America >60 (>=60 mL/min/1.73m^2); Estimated GFR (Non-African Ame >60 (>=60 mL/min/1.73m^2); Globulin 3.8 g/dL; Glucose 98 mg/dL (74-106); Potassium 3.6 mmol/L (3.5-5.1); Sodium 136 mmol/L (136-145); Total Protein 7.6 g/dL (6.4-8.2)
== END 2024-11-16 15:49 | disposition home or self-care (01) ==
PROVIDERS: Nurse Practitioner Family; Emergency Provider Emergency Medicine
DX: N39.0 Urinary tract infection, site not specified (principal); N93.9 Abnormal uterine and vaginal bleeding, unspecified; R10.84 Generalized abdominal pain; R35.0 Frequency of micturition; R39.15 Urgency of urination; R10.2 Pelvic and perineal pain
CPT/HCPCS: 36415; 80053; 81001; 84703; 85025; 87086; 87088; 87186; 99284

== ENCOUNTER 2024-12-19 20:44 | Emergency (ER) | payer OTHER, SELFPAY ==
[2024-12-19 21:04] VITALS: BP 148/82; PULSE 93; TEMP 37; O2SAT 98; BMI 29.2
--- NOTE | 2024-12-19 21:20 | CT_ITS ---
The [address] [address] Patient Name: ERIKA WATERS MRN: [id number] date: 2005 Sex: F Assigned Patient Location: ED.MAIN Current Patient Location: ED.MAIN Accession/Order Number: [id number] Exam Date: 12/19/2024 21:31 Report Date: 12/19/2024 22:25 At the request of: HERBER GUERRERO Procedure: CT thoracic spine wo con CT thoracic spine wo con 12/19/2024 9:39 PM History: TECHNIQUE: Multi detector CT axial slices of the thoracic spine were obtained without IV contrast. Volumetric acquisition sagittal, coronal, and 3-D reconstructions were performed and reviewed on a separate workstation. CT was performed with one or more of the following dose reduction techniques: Automated exposure control, adjustment of the mA and/or kV according to patient size, or use of iterative reconstruction technique. COMPARISON: 02/24/2022 FINDINGS: There is preservation of the vertebral body heights and intervertebral discs. Pulido justin placement is noted from C3 through L1. No hardware complication. No fractures or dislocations are seen. There is a dextro convex curvature of the thoracic spine. The paraspinous soft tissues are within normal limits. The visualized lung parenchyma is unremarkable. The visualized upper abdominal viscera is unremarkable. CT/CT thoracic spine wo con IMPRESSION: No acute bony abnormality or malalignment. There is a similar mild dextro convex curvature, improved over the previous radiographs. Pulido justin placement is noted from C3 through L1. No hardware complication. This is new when compared to the prior radiographs. Impression dictated by: Vj Callejas M.D. 12/19/2024 10:25 PM Dictation Location: [place] [address] Electronically authenticated by: [id number] Y Date: 12/19/2024 22:25
--- OUTSIDE RECORDS SUMMARY | 2024-12-19 21:21 | XMS_ITS | CCD ---
Author Organization [facility] Care Team Providers Care Bilingual Sales Assistant Name Role Phone DR KRISTAN CHAWLA Admitting Unavailable LILIA, SUSAN MORALES Primary Care Unavailable CAMMY, DR RUSHING Attending Unavailable CAMMY, DR RUSHING Consulting Unavailable ROZ WEAVER Consulting Unavailable ALESSANDRO ANGLIN Consulting Unavailable ZULEMA RAMOS Admitting Unavailable ZULEMA RAMOS Attending Unavailable ZULEMA RAMOS Consulting Unavailable ROSS, SUSAN ANDREW Primary Care Unavailable ISHAN CARR Consulting Unavailable ROSS, SUSAN ANDREW Primary Care Unavailable YOLANDA TSAI Consulting Unavailable MARKER, DR LEOS Admitting Unavailable MARKER, DR LEOS Attending Unavailable MARKER, DR LEOS Consulting Unavailable LUIS F PRATT Referring Unavailable NO PCP, NO PCP Primary Care Unavailable LUIS F PRATT Attending Unavailable NO PCP, NO PCP Primary Care Unavailable Shelley Martinez APRN Attending Provider [phone] No Pcp, No Pcp Primary Care Provider Unavaildavid e NO FAMILY, PHYSICIAN Primary Care Provider Unava ilable Rafia Santoyo APRN Emergency Provider [phone] NON STAFF Primary Care Provider Unavaildavid e Dann Sibley MD Attending Provider [phone] Johnnie Clements MD Admit Provider Johnnie Clements MD Attending Provider Johnnie Clements MD Other Provider JUSTA CARDONA Primary Care Unavailable CYDNEY PINEDA Attending Unavailable Rice WHCNPApple Attending Unavaila ble Rice WHCNP WHCNPApple Unavailable Unavaila ble Rice WHCNP WHCNP, Apple Unavailable Unavaila Alessandro Tovar Attending Provider [phone] Hayder Bonilla MD Emergency Provider [phone] Adalgisa James APRN Emergency Provider [facility] Unavailable UnavailAlessandro Boudreaux Admitting Unavailable Alessandro Anglin Attending Unavailable Shelley Martinez Attending Unavailable Shelley Martinez Admitting Unavailable NON STAFF Primary Care Unavailable NON STAFF Primary Care Unavailable Dann Sibley Attending Unavailab le Dann Sibley Admitting Unavailab Johnnie Velazquez Attending Unavailable Johnnie Clements Admitting Unavailable NO FAMILY, PHYSICIAN Primary Care Unavailable NO FAMILY, PHYSICIAN Primary Care Unavailable Hayder Bonilla Attending Unavailable Hayder Bonilla Admitting Unavailable Adalgisa James Attending Unavaildavid e Adalgisa James Admitting Unavailabl e NO FAMILY, PHYSICIAN Primary Care Unavailable Rafia Santoyo Admitting Unavailable NO FAMILY, PHYSICIAN Primary Care Unavailable Rafia Santoyo Attending Unavailable Allergies Allergy Classification Reported Allergen(s) Allergy Type Date of Onset Reaction(s) Facility (1 source) Penicillin Drug Allergy [facility] Repository (1 source) Penicillins Drug allergy (disorder) 11-28-2024 [facility] Repository Medications Current Medications Medication Drug Class(es) Dates Sig (Normalized) Sig (Original) acetaminophen 500 mg oral tablet (2 sources) Start: 05-21-2022 take 1 tablet by mouth every six hours as needed for pain acetaminophen (TYLENOL EXTRA STRENGTH) 500 mg tablet Take 1 tablet (500 mg total) by mouth every 6 (six) hours as needed for pain. 30 tablet 0 05/21/2022 Active cephalexin 500 mg oral capsule (1 source) Cephalosporin Antibacterial Start: 11-26-2024 take 2 capsules by mouth every twelve hours Cephalexin 500 mg capsule Active 1000 MG PO Q12H 40 10 November 26, 2024 12:00am Complies with drug therapy Sprintec 28 Day Pack (1 source) Progestin, [...] route BID for 7 days - Active ondansetron 4 mg disintegrating oral tablet (1 source) Serotonin-3 Receptor Antagonist Start: 11-26-2024 Ondansetron 4 mg tablet,disintegrat ing Active 4 MG PO every 6 to 8 hours as needed for nausea and vomiting November 26, 2024 12:00am Complies with drug therapy promethazine hydrochloride 25 mg oral tablet (1 source) Phenothiazine Start: 11-28-2024 take 1 tablet by mouth every six hours as needed for nausea and vomiting Problems Active Problems Problem Classification Problem Date Documented Date Episodic/Chronic Abdominal pain (2 sources) Unspecified abdominal pain; Translations: [UNSPECIFIED ABDOMINAL PAIN] [...] source) Hypokalemia; Translations: [Hypokalemia] Onset: 10-13-2024 Episodic Gastritis and duodenitis (1 source) Gastritis; Translations: [Gastritis, unspecified, without bleeding] 11-28-2024 Episodic Immunizations and screening for infectious disease (2 sources) Encounter for screening for infections with a predominantly sexual mode of transmission Episodic Mood disorders (7 sources) Acute depression; Translations: [Acute depression] Onset: [...] 05-17-2023 Chronic Other aftercare (1 source) Other mcc (current) drug therapy; Translations: [OTH LONGTERM CURRENT DRUG THERAPY] Onset: 01-15-2022 Episodic Other [...] risk heterosexual behavior Episodic Sprains and strains (5 sources) Sprain of ligaments of thoracic spine, initial encounter; Translations: [Sprain of ligament of elbow] Onset: 02-25-2022 10-12-2024 Episodic Substance-related disorders (1 source) Cannabis hyperemesis syndrome co-occurrent and due to cannabis abuse; Translations: [Cannabis abuse with other cannabis-induced disorder] 11-28-2024 Chronic Suicide and intentional self-inflicted injury (1 source) Suicidal ideations; Translations: [Suicidal ideations] Onset: 10-13-2024 Episodic Unclassified (6 sources) Call with any medical concerns. Unclassified (3 sources) restaurant service manager will call you on the next business day between 8am & 5pm, if you miss this call please call back as soon as possible. Unclassified (1 source) Suicidal Onset: 10-13-2024 Unclassified (1 source) EMS Onset: 10-13-2024 Urinary tract infections (1 source) Pyelonephritis; Translations: [Tubulo-interstitial nephritis, not specified as acute or chronic] 11-26-2024 Episodic Past or Other Problems Problem Classification Problem Date Documented Da te Episodic/Chronic Other connective tissue disease (2 sources) History of spinal fusion for scoliosis; Translations: [Arthrodesis status] 05-13-2023 Episodic Other upper respiratory infections (16 sources) Acute pharyngitis, unspecified; Translations: [Streptococcal pharyngitis] [...] Name Value Interpretation Reference Range Facil ity Alanine aminotransferase [En zymatic activity/volume] in Serum or PlasmaOrdered By: Adalgisa James on 11-28-2024 ALT [Catalytic activity/Vol] 14 U/L Normal 7-52 [facility] Comment on above: Performed By: #### H EPATIC, CBC, LIPASE, LACTIC, BMP #### [facility] [address] [place] [address] Albumin [Mass/volume] in Ser um or Plasma by Bromocresol green (BCG) dye binding methoOrdered By: Adalgisa James on 11-28-2024 Albumin BCG dye [Mass/Vol] 4.1 g/dL 3.5-5.7 [facility] Alkaline phosphatase [Enzyma tic activity/volume] in Serum or PlasmaOrdered By: Adalgisa James on 11-28-2024 ALP [Catalytic activity/Vol] 72 U/L Normal 34-104 [facility] Comment on above: Performed By: #### H EPATIC, CBC, LIPASE, LACTIC, BMP #### [facility] [address] [place] [address] [place] Amphetamine Screen Ql (U)Ord ered By: Adalgisa James on 11-28-2024 Amphetamines Ql (U) Negative Negative [facility] Appearance of UrineOrdered B y: Adalgisa James on 11-28-2024 Appearance (U) Cloudy Critically abnormal Clear [facility] Comment on above: Order Comment: Name Collection Type:: Voided Performed By: #### U HCG, ADDONUAPLUS #### [facility] [address] Aspartate aminotransferase [ Enzymatic activity/volume] in Serum or PlasmaOrdered By: Adalgisa James on 11-28-2024 AST [Catalytic activity/Vol] 16 U/L Normal 13-39 [facility] Comment on above: Performed By: #### H EPATIC, CBC, LIPASE, LACTIC, BMP #### [facility] [address] [place] [address] [place] Bacteria [Presence] in Urine by AutomatedOrdered By: Adalgisa James on 11-28-2024 Bacteria Auto Ql (U) None seen [HPF] None Seen [facility] Barbiturates [Presence] in U rine by Screen methodOrdered By: Adalgisa Louis on 11-28-2024 Barbiturates Screen Ql (U) Negative Negative [facility] Basic Metabolic Panelon 11-04 Creatinine Clr Calc Pharmacy 135.51 Normal [facility] Comment on above: Performed By: #### H EPATIC, CBC, LIPASE, LACTIC, BMP #### [facility] [address] [place] [address] [place] GFR/1.73 sq M.predicted MDRD (S/P/Bld) [Vol rate/Area] mL/min/{1.73_m2} Normal [facility] Comment on above: Performed By: #### H EPATIC, CBC, LIPASE, LACTIC, BMP #### [facility] [address] Basophils [#/volume] in Bloo d by Automated countOrdered By: Adalgisa James on 11-28-2024 Basophils (Bld) [#/Vol] 0.0 10*3/uL Normal 0.0-0.2 [facility] Comment on above: Result Comment: PERF ORMED BY: [place] [address] PATHOLOGIST SHAKER OUT INOCENCIO MCKINNON M.D. Performed By: #### H EPATIC, CBC, LIPASE, LACTIC, BMP #### [facility] [address] [place] [address] Basophils/100 leukocytes in Blood by Automated countOrdered By: Adalgisa Louis on 11-28-2024 Basophils/100 WBC (Bld) 0.1 % Normal . [facility] Comment on above: Performed By: #### H EPATIC, CBC, LIPASE, LACTIC, BMP #### [facility] [address] [place] [address] Benzodiazepines Screen Ql (U )Ordered By: Adalgisa James on 11-28-2024 Benzodiazepines Ql (U) Negative Negative [facility] Benzoylecgonine [Presence] i n Urine by Screen methodOrdered By: Adalgisa Louis on 11-28-2024 Benzoylecgonine Screen Ql (U) Negative Negative [facility] Bilirubin Test strip Ql (U)O rdered By: Adalgisa James on 11-28-2024 Bilirubin Ql (U) Negative Negative [facility] Bilirubin.direct [Mass/volum e] in Serum or PlasmaOrdered By: Adalgisa Louis on 11-28-2024 Bilirubin.direct [Mass/Vol] 0.10 mg/dL 0.03-0.18 [facility] Bilirubin.total [Mass/volume ] in Serum or PlasmaOrdered By: Adalgisa James on 11-28-2024 Bilirubin [Mass/Vol] 0.4 mg/dL Normal 0.3-1.0 [facility] Comment on above: Performed By: #### H EPATIC, CBC, LIPASE, LACTIC, BMP #### [facility] [address] [place] [id number] [facility] CT abdomen pelvis w conon CT abdomen pelvis w con [facility] [address] [place] [address] [place] [address] CT Scan Report Signed Patient: Erika Don MR#: [id number] : 2005 Acct:[id number] Age/Sex: 19 / F ADM Date: 11/28/24 Loc: ER Room: Type: [facility] ER Attending Dr: Copies to: Adalgisa James APRN Ordering Provider: Adalgisa James APRN Date of Service: 11/28/24 CT/CT abdomen pelvis w con: Abdominal Pain CT Abdomen and Pelvis withcontrast TECHNIQUE: Axial imaging with 2-D reconstruction.90 cc of Isovue-300. The CT exam was performed using one or more the following dose reduction techniques: Automated exposure control, adjustment of the MA and/or Kv according to patient size, or use of the iterative reconstruction technique. COMPARISON: 11/26/2024 History: UTI. Right flank pain LIMITATIONS: None LOWER THORAX Unremarkable LIVER: Unremarkable GALLBLADDER: No gallbladder abnormality identified. BILE DUCTS: No dilatation SPLEEN: Unremarkable PANCREAS: Unremarkable ADRENAL GLANDS: Unremarkable KIDNEYS:Left renal scarring and cystic change. No hydronephrosis. No abscess. Symmetric nephrograms. AORTA: No abdominal aortic aneurysm identified. RETROPERITONEUM: No significant retroperitoneal abnormalities identified. MESENTERY:Unremarkab le STOMACH:Unremarkable SMALL BOWEL: The small bowel loops are nondistended. APPENDIX: The appendix is normal. COLON: Unremarkable URINARY BLADDER: Urinary bladder wall thickening. Underdistention versus cystitis. REPRODUCTIVE SYSTEM: Reproductive structures are unremarkable. PNEUMOPERITONEUM: None PERITONEAL FLUID:None BONY STRUCTURES: Spinal fixation hardware ABDOMINAL WALL: Unremarkable CT/CT abdomen pelvis w con IMPRESSION: No hydronephrosis. Urinary bladder wall thickening. Underdistention versus cystitis. Impression dictated by: Mirza Lamas M.D. 11/28/2024 11:34 AM Dictation Location: [place] [address] Transcribed By: JOSE 11/28/24 1134 Dictated By: Mirza Lamas DO 11/28/24 1129 Signed By: 11/28/24 1134 Normal [facility] Calcium [Mass/volume] in Ser um or PlasmaOrdered By: Adalgisa James on 11-28-2024 Calcium [Mass/Vol] 9.0 mg/dL Normal 8.6-10.3 [facility] Comment on above: Performed By: #### H EPATIC, CBC, LIPASE, LACTIC, BMP #### [facility] [address] [place] [address] [place] Cannabinoids [Presence] in U rine by Screen methodOrdered By: Adalgisa Louis on 11-28-2024 Cannabinoids Screen Ql (U) Positive High Negative [facility] Comment on above: These are unconfirme d results and should not be used for legal purposes. Drug Cut-Off Concentration: AMPH 1000 ng/mL KEIRA 200 ng/mL TERRENCE 200 ng/mL COCM 300 ng/mL OP 300 ng/mL PCP 25 ng/mL THC 20 ng/mL Carbon dioxide, total [Moles /volume] in Serum or PlasmaOrdered By: Adalgisa James on 11-28-2024 CO2 [Moles/Vol] 27.6 mmol/L Normal 21.0-31.0 [facility] Comment on above: Performed By: #### H EPATIC, CBC, LIPASE, LACTIC, BMP #### [facility] [address] [place] [id number] [place] Chloride [Moles/volume] in S chantelle or PlasmaOrdered By: Adalgisa James on 11-28-2024 Chloride [Moles/Vol] 106 mmol/L Normal 98-107 [facility] Comment on above: Performed By: #### H EPATIC, CBC, LIPASE, LACTIC, BMP #### [facility] [address] [place] [id number] [place] Color of Urine by AutoOrdere d By: Adalgisa James on 11-28-2024 Color (U) Light-yellow Normal Yellow [facility] Comment on above: Order Comment: Name Collection Type:: Voided Performed By: #### U HCG, ADDONUAPLUS #### [address] Complete Blood Count Auto Di ffon 11-28-2024 Mean Corpuscular HGB Conc 33.5 g/dL Normal 32.0-35.0 [facility] Comment on above: Performed By: #### H EPATIC, CBC, LIPASE, LACTIC, BMP #### [place] [address] [place] Monocytes/100 WBC (Bld) 18.63 % Normal 0.00-20.00 [facility] Comment on above: Performed By: #### H EPATIC, CBC, LIPASE, LACTIC, BMP #### [address] NRBC% 0.0 /100{WBC} Normal 0-0.5 [facility] Comment on above: Performed By: #### H EPATIC, CBC, LIPASE, LACTIC, BMP #### [address] White Blood Count 16.1 [CFU]/mL High 3.8-11.6 [facility] Comment on above: Performed By: #### H EPATIC, CBC, LIPASE, LACTIC, BMP #### [address] Creatinine [Mass/volume] in Serum or PlasmaOrdered By: Adalgisa James on 11-28-2024 Creatinine [Mass/Vol] 0.68 mg/dL Normal 0.60-1.20 [facility] Comment on above: Performed By: #### H EPATIC, CBC, LIPASE, LACTIC, BMP #### [place] [address] [place] Dipstick and Microscopicon 0 11-28-2024 Bacteria,Urine None Seen Normal None Seen [facility] Comment on above: Order Comment: Name Collection Type:: Voided Performed By: #### U HCG, ADDONUAPLUS #### [address] Bilirubin,Urine Negative Normal Negative [facility] Comment on above: Order Comment: Name Collection Type:: Voided Performed By: #### U HCG, ADDONUAPLUS #### [facility] [address] Glucose Ql (U) Normal Normal Normal [facility] Comment on above: Order Comment: Name Collection Type:: Voided Performed By: #### U HCG, ADDONUAPLUS #### [facility] [address] [place] [address] [place] Hyaline Casts,Urine None Normal 0-8 [facility] Comment on above: Order Comment: Name Collection Type:: Voided Performed By: #### U HCG, ADDONUAPLUS #### [facility] [address] [place] [address] [place] Mucus,Urine Rare Normal [facility] Comment on above: Order Comment: Name Collection Type:: Voided Performed By: #### U HCG, ADDONUAPLUS #### [place] [address] [place] Nitrite,Urine Negative Normal Negative [facility] Comment on above: Order Comment: Name Collection Type:: Voided Performed By: #### U HCG, ADDONUAPLUS #### [facility] [address] [place] [address] [place] Occult Blood,Urine Negative Normal Negative [facility] Comment on above: Order Comment: Name Collection Type:: Voided Performed By: #### U HCG, ADDONUAPLUS #### [place] [address] [place] Protein,Urine Negative Normal Negative [facility] Comment on above: Order Comment: Name Collection Type:: Voided Performed By: #### U HCG, ADDONUAPLUS #### [place] [id number] [place] RBC,Urine 3-4 Normal 0-4 [facility] Comment on above: Order Comment: Name Collection Type:: Voided Performed By: #### U HCG, ADDONUAPLUS #### [place] [address] [place] Specificy [place],Urine 1.016 Normal 1.001-1.030 [facility] Comment on above: Order Comment: Name Collection Type:: Voided Performed By: #### U HCG, ADDONUAPLUS #### [address] Squamous Epithelial Cell,Urine 10-19 Normal 0-2 [facility] Comment on above: Order Comment: Name Collection Type:: Voided Performed By: #### U HCG, ADDONUAPLUS #### [address] Urobilinogen,Urine Normal Normal Normal [facility] Comment on above: Order Comment: Name Collection Type:: Voided Performed By: #### U HCG, ADDONUAPLUS #### [address] WBC,Urine 5-9 Normal 0-4 [facility] Comment on above: Order Comment: Name Collection Type:: Voided Performed By: #### U HCG, ADDONUAPLUS #### [address] Drug Screen,Urineon 11-29-19 25 Amphetamine Screen,Urine Negative Normal Negative [facility] Comment on above: Performed By: #### U RDS ####[address] Barbiturate Screen,Urine Negative Normal Negative [facility] Comment on above: Performed By: #### U RDS ####[address] Benzodiazepines Screen,Urine Negative Normal Negative [facility] Comment on above: Performed By: #### U RDS ####[address] Cannabinoid Screen,Urine Positive Normal Negative [facility] Comment on above: Result Comment: Thes e are unconfirmed results and should not be used for legal purposes. Drug Cut-Off Concentration: AMPH 1000 ng/mL KEIRA 200 ng/mL TERRENCE 200 ng/mL COCM 300 ng/mL OP 300 ng/mL PCP 25 ng/mL THC 20 ng/mL PERFORMED BY: [place] [address] PATHOLOGIST SHAKER OUT INOCENCIO MCKINNON M.D. Performed By: #### U RDS ####[facility] Cocaine Screen,Urine Negative Normal Negative [facility] Comment on above: Performed By: #### U RDS ####[facility] Opiate Screen,Urine Negative Normal Negative [facility] Comment on above: Performed By: #### U RDS ####[facility] [place] [address] Phencyclidine Screen,Urine Negative Normal Negative [facility] Comment on above: Performed By: #### U RDS ####[address] Eosinophils [#/volume] in Bl ood by Automated countOrdered By: Adalgisa Louis on 11-28-2024 Eosinophils (Bld) [#/Vol] 0.0 10*3/uL Normal 0.0-0.45 [facility] Comment on above: Performed By: #### H EPATIC, CBC, LIPASE, LACTIC, BMP #### [address] Eosinophils/100 leukocytes i n Blood by Automated countOrdered By: Adalgisa James on 11-28-2024 Eosinophils/100 WBC (Bld) 0.0 % Normal . [facility] Comment on above: Performed By: #### H EPATIC, CBC, LIPASE, LACTIC, BMP #### [facility] [address] Epithelial cells.squamous [# /area] in Urine sediment by Automated countOrdered By: Adalgisa James on 11-28-2024 Epithelial cells.squamous Auto (Urine sed) [#/Area] 10-19 [HPF] High 0-2 [facility] Erythrocyte distribution wid th [Ratio] by Automated countOrdered By: Adalgisa James on 11-28-2024 Erythrocyte distribution width (RBC) [Ratio] 14.0 % Normal 11.9-15.3 [facility] Comment on above: Performed By: #### H EPATIC, CBC, LIPASE, LACTIC, BMP #### [facility] [address] Erythrocytes [#/area] in Uri ne sediment by Automated countOrdered By: Adalgisa James on 11-28-2024 RBC Auto (Urine sed) [#/Area] 3-4 [HPF] 0-4 [facility] Erythrocytes [#/volume] in B lood by Automated countOrdered By: Adalgisa Louis on 11-28-2024 RBC (Bld) [#/Vol] 4.51 10*6/uL Normal 3.60-5.00 [facility] Comment on above: Performed By: #### H EPATIC, CBC, LIPASE, LACTIC, BMP #### [address] Glomerular filtration rate [ Volume Rate/Area] in Serum, Plasma or Blood by CreatinineOrdered By: Adalgisa James on 11-28-2024 Glomerular filtration rate [Volume Rate/Area] in Serum, Plasma or Blood by Creatinine > 60.0 mL/Min [facility] Glucose [Mass/volume] in Ser um or PlasmaOrdered By: Adalgisa James on 11-28-2024 Glucose [Mass/Vol] 109 mg/dL High 70-100 [facility] Comment on above: ADA recommended refe rence rangeRandom Glucose Reference Range is dependent on time and content of last meal. Glucose of more than 200 mg/dL in a nonstressed, ambulatory subject supports the diagnosis of Diabetes Mellitus. Result Comment: Boyd om Glucose Reference Range is dependent on time and content of last meal. Glucose of more than 200 mg/dL in a nonstressed, ambulatory subject supports the diagnosis of Diabetes Mellitus. ADA recommended reference range Performed By: #### H EPATIC, CBC, LIPASE, LACTIC, BMP #### [facility] [address] Glucose [Mass/volume] in Uri ne by Test stripOrdered By: Adalgisa James on 11-28-2024 Glucose Test strip (U) [Mass/Vol] Normal mg/dL Normal [facility] HCG ( test) IA.rapi d Ql (U)Ordered By: Adalgisa James on 11-28-2024 HCG ( test) Ql (U) Negative [facility] HCG,Urineon 11-28-2024 Beta HCG ( test) Ql (U) Negative Normal [facility] Comment on above: Order Comment: Name Collection Type:: Voided Result Comment: PERF ORMED BY: [place] [address] PATHOLOGIST SHAKER OUT INOCENCIO MCKINNON M.D. Performed By: #### U HCG, ADDONUAPLUS #### [address] Hematocrit [Volume Fraction] of Blood by Automated countOrdered By: Adalgisa James on 11-28-2024 Hematocrit (Bld) [Volume fraction] 37.3 % Normal 34.0-46.4 [facility] Comment on above: Performed By: #### H EPATIC, CBC, LIPASE, LACTIC, BMP #### [address] Hemoglobin Test strip Ql (U) Ordered By: Adalgisa James on 11-28-2024 Hemoglobin Ql (U) Negative Negative [facility] Hemoglobin [Mass/volume] in BloodOrdered By: Adalgisa James on 11-28-2024 Hemoglobin (Bld) [Mass/Vol] 12.5 g/dL Normal 11.8-15.4 [facility] Comment on above: Performed By: #### H EPATIC, CBC, LIPASE, LACTIC, BMP #### [address] Hepatic Panelon 11-28-2024 Albumin [Mass/Vol] 4.1 g/dL Normal 3.5-5.7 [facility] Comment on above: Performed By: #### H EPATIC, CBC, LIPASE, LACTIC, BMP #### [address] Bilirubin,Indirect 0.3 mg/dL Normal [facility] Comment on above: Performed By: #### H EPATIC, CBC, LIPASE, LACTIC, BMP #### [address] Bilirubin.indirect [Mass/Vol] 0.10 mg/dL Normal 0.03-0.18 [facility] Comment on above: Performed By: #### H EPATIC, CBC, LIPASE, LACTIC, BMP #### [address] Hyaline casts [#/area] in Ur ine sediment by Automated countOrdered By: Adalgisa James on 11-28-2024 Hyaline casts Auto (Urine sed) [#/Area] None [LPF] 0-8 [facility] Ketones [Presence] in Urine by Test stripOrdered By: Adalgisa James on 11-28-2024 Ketones Ql (U) 2+ Normal Negative [facility] Comment on above: Order Comment: Name Collection Type:: Voided Performed By: #### U HCG, ADDONUAPLUS #### [address] Lactate [Moles/volume] in Se rum or PlasmaOrdered By: Adalgisa James on 11-28-2024 Lactate [Moles/Vol] 0.6 mmol/L Normal 0.5-1.9 [facility] Comment on above: Lactic Acid referenc e range has been updated to 0.5 1.9 mmol/L and the critical range of 2.0 or greater. Result Comment: Lact ic Acid reference range has been updated to 0.5 ? 1.9 mmol/L and the critical range of 2.0 or greater. PERFORMED BY: [place] [address] PATHOLOGIST [employer]AKER OUT INOCENCIO MCKINNON M.D. Performed By: #### H EPATIC, CBC, LIPASE, LACTIC, BMP #### [address] Leukocyte esterase [Presence ] in Urine by Test stripOrdered By: Adalgisa Louis on 11-28-2024 Leukocyte esterase Test strip Ql (U) Negative Normal Negative [facility] Comment on above: Order Comment: Name Collection Type:: Voided Performed By: #### U HCG, ADDONUAPLUS #### [facility] [address] [place] [address] Leukocytes [#/area] in Urine sediment by Automated countOrdered By: Adalgisa James on 11-28-2024 WBC Auto (Urine sed) [#/Area] 5-9 [HPF] High 0-4 [facility] Leukocytes [#/volume] correc joi for nucleated erythrocytes in Blood by Automated counOrdered By: Adalgisa James on 11-28-2024 WBC corrected for nucl RBC Auto (Bld) [#/Vol] 16.1 10*3/uL High 3.8-11.6 [facility] Leukocytes [#/volume] in Blo od by Automated countOrdered By: Adalgisa Louis on 11-28-2024 WBC (Bld) [#/Vol] 16.1 10*3/uL High 3.8-11.6 [facility] Comment on above: Performed By: #### H EPATIC, CBC, LIPASE, LACTIC, BMP #### [facility] [address] [place] [address] Lipase [Enzymatic activity/v olume] in Serum or PlasmaOrdered By: Adalgisa Louis on 11-28-2024 Lipase [Catalytic activity/Vol] 7.0 U/L Low 11.0-82.0 [facility] Comment on above: Result Comment: PERF ORMED BY: [place] [address] PATHOLOGIST [employer]AK[employer] OUT INOCENCIO MCKINNON M.D. Performed By: #### H EPATIC, CBC, LIPASE, LACTIC, BMP #### [facility] [address] [place] [address] [place] Lymphocytes [#/volume] in Bl ood by Automated countOrdered By: Adalgisa Louis on 11-28-2024 Lymphocytes (Bld) [#/Vol] 0.9 10*3/uL Low 1.00-4.8 [facility] Comment on above: Performed By: #### H EPATIC, CBC, LIPASE, LACTIC, BMP #### [address] Lymphocytes/100 leukocytes i n Blood by Automated countOrdered By: Adalgisa James on 11-28-2024 Lymphocytes/100 WBC (Bld) 5.6 % Normal . [facility] Comment on above: Performed By: #### H EPATIC, CBC, LIPASE, LACTIC, BMP #### [address] MCH [Entitic mass] by Automa joi countOrdered By: Adalgisa James on 11-28-2024 MCH (RBC) [Entitic mass] 27.6 pg Normal 24.7-34.3 [facility] Comment on above: Performed By: #### H EPATIC, CBC, LIPASE, LACTIC, BMP #### [address] MCHC Auto (RBC) [Mass/Vol]Or dered By: Adalgisa James on 11-28-2024 MCHC (RBC) [Mass/Vol] 33.5 g/dL 32.0-35.0 [facility] MCV [Entitic volume] by Auto mated countOrdered By: Adalgisa James on 11-28-2024 MCV (RBC) [Entitic vol] 82.6 fL Normal 80-100 [facility] Comment on above: Performed By: #### H EPATIC, CBC, LIPASE, LACTIC, BMP #### [facility] [address] [place] [address] Monocyte distribution width [Entitic volume] in Blood by AutomatedOrdered By: Adalgisa James on 11-28-2024 Monocyte distribution width Auto (Bld) [Entitic vol] 18.63 % 0.00-20.00 [facility] Monocytes [#/volume] in Bloo d by Automated countOrdered By: Adalgisa James on 11-28-2024 Monocytes (Bld) [#/Vol] 0.6 10*3/uL Normal 0.0-0.8 [facility] Comment on above: Performed By: #### H EPATIC, CBC, LIPASE, LACTIC, BMP #### [facility] [address] Monocytes/100 leukocytes in Blood by Automated countOrdered By: Adalgisa Louis on 11-28-2024 Monocytes/100 WBC (Bld) 3.8 % Normal . [facility] Comment on above: Performed By: #### H EPATIC, CBC, LIPASE, LACTIC, BMP #### [facility] [address] Mucus [Presence] in Urine by AutomatedOrdered By: Adalgisa James on 11-28-2024 Mucus Auto Ql (U) Rare [LPF] [facility] Neutrophils [#/volume] in Bl ood by Automated countOrdered By: Adalgisa Louis on 11-28-2024 Neutrophils (Bld) [#/Vol] 14.6 10*3/uL High 1.8-7.7 [facility] Comment on above: Performed By: #### H EPATIC, CBC, LIPASE, LACTIC, BMP #### [facility] [address] [place] [address] Neutrophils/100 leukocytes i n Blood by Automated countOrdered By: Adalgisa James on 11-28-2024 Neutrophils/100 WBC (Bld) 90.5 % Normal . [facility] Comment on above: Performed By: #### H EPATIC, CBC, LIPASE, LACTIC, BMP #### [facility] [address] Nitrite Test strip Ql (U)Ord ered By: Adalgisa James on 11-28-2024 Nitrite Ql (U) Negative Negative [facility] No Panel InformationOrdered By: Adalgisa James on 11-28-2024 Pharmacy Creatinine Clearance (Chem 135.51 [facility] Nucleated erythrocytes [Pres ence] in Blood by Automated countOrdered By: Adalgisa James on 11-28-2024 Nucleated RBC Auto Ql (Bld) 0.0 /100{WBC} 0-0.5 [facility] Opiates [Presence] in Urine by Screen methodOrdered By: Adalgisa James on 11-28-2024 Opiates Screen Ql (U) Negative Negative [facility] Phencyclidine Screen Ql (U)O rdered By: Adalgisa James on 11-28-2024 Phencyclidine Ql (U) Negative Negative [facility] Platelet mean volume [Entiti c volume] in Blood by Automated countOrdered By: Adalgisa James on 11-28-2024 Platelet mean volume (Bld) [Entitic vol] 8.2 fL Normal 6.3-10.7 [facility] Comment on above: Performed By: #### H EPATIC, CBC, LIPASE, LACTIC, BMP #### [facility] [address] Platelets [#/volume] in Bloo d by Automated countOrdered By: Adalgisa James on 11-28-2024 Platelets (Bld) [#/Vol] 306 10*3/uL Normal 150-450 [facility] Comment on above: Performed By: #### H EPATIC, CBC, LIPASE, LACTIC, BMP #### [facility] [address] [place] [address] [place] Potassium [Moles/volume] in Serum or PlasmaOrdered By: Adalgisa James on 11-28-2024 Potassium [Moles/Vol] 3.4 mmol/L Low 3.5-5.1 [facility] Comment on above: Performed By: #### H EPATIC, CBC, LIPASE, LACTIC, BMP #### [facility] [address] [place] [address] [place] Protein Test strip (U) [Mass /Vol]Ordered By: Adalgisa James on 11-28-2024 Protein (U) [Mass/Vol] Negative Negative [facility] Protein [Mass/volume] in Ser um or PlasmaOrdered By: Adalgisa James on 11-28-2024 Protein [Mass/Vol] 7.0 g/dL Normal 6.4-8.9 [facility] Comment on above: Performed By: #### H EPATIC, CBC, LIPASE, LACTIC, BMP #### [address] Serum globulin measurement b y calculation (mass/volume)Ordered By: Adalgisa James on 11-28-2024 Globulin (S) [Mass/Vol] 2.9 g/dL Normal F [facility] Comment on above: Performed By: #### H EPATIC, CBC, LIPASE, LACTIC, BMP #### [address] Serum or plasma albumin/glob ulin mass ratioOrdered By: Adalgisa James on 11-28-2024 Albumin/Globulin [Mass ratio] 1.4 {ratio} Normal [facility] Comment on above: Performed By: #### H EPATIC, CBC, LIPASE, LACTIC, BMP #### [address] Serum or plasma anion gap de terminationOrdered By: Adalgisa James on 11-28-2024 Anion gap [Moles/Vol] 9.8 mmol/L Normal 6.0-15.0 [facility] Comment on above: Performed By: #### H EPATIC, CBC, LIPASE, LACTIC, BMP #### [address] Serum or plasma non-glucuron idated bilirubin measurement (mass/volume)Ordered By: Adalgisa James on 11-28-2024 Bilirubin.indirect [Mass/Vol] 0.3 mg/dL [facility] Sodium [Moles/volume] in Ser um or PlasmaOrdered By: Adalgisa James on 11-28-2024 Sodium [Moles/Vol] 140 mmol/L Normal 136-145 [facility] Comment on above: Performed By: #### H EPATIC, CBC, LIPASE, LACTIC, BMP #### [address] Specific gravity Test strip (U) [Rel density]Ordered By: Adalgisa James on 11-28-2024 Specific gravity (U) [Rel density] 1.016 1.001-1.030 [facility] Urea nitrogen [Mass/volume] in Serum or PlasmaOrdered By: Adalgisa James on 11-28-2024 Urea nitrogen [Mass/Vol] 6 mg/dL Low 7-25 [facility] Comment on above: Performed By: #### H EPATIC, CBC, LIPASE, LACTIC, BMP #### [facility] [address] Urobilinogen Test strip (U) [Mass/Vol]Ordered By: Adalgisa James on 11-28-2024 Urobilinogen (U) [Mass/Vol] Normal mg/dL Normal [facility] pH of Urine by Test stripOrd ered By: Adalgisa James on 11-28-2024 pH (U) 6.5 [pH] Normal 5.0-9.0 [facility] Comment on above: Order Comment: Name Collection Type:: Voided Performed By: #### U HCG, ADDONUAPLUS #### [facility] [address] Alanine aminotransferase [En zymatic activity/volume] in Serum or PlasmaOrdered By: Hayder Bonilla on 11-26-2024 ALT [Catalytic activity/Vol] 14 U/L Normal 7-52 [facility] Comment on above: Performed By: #### C BC, CMP ####[facility] [id number] [place] [address] [place] Albumin [Mass/volume] in Ser um or Plasma by Bromocresol green (BCG) dye binding methoOrdered By: Hayder Bonilla on 11-26-2024 Albumin BCG dye [Mass/Vol] 4.2 g/dL 3.5-5.7 [facility] Alkaline phosphatase [Enzyma tic activity/volume] in Serum or PlasmaOrdered By: Hayder Bonilla on 11-26-2024 ALP [Catalytic activity/Vol] 79 U/L Normal 34-104 [facility] Comment on above: Performed By: #### C BC, CMP ####[place] [id number] [facility] Appearance of UrineOrdered B y: Hayder Bonilla on 11-26-2024 Appearance (U) Cloudy Critically abnormal Clear [facility] Comment on above: Order Comment: Name Collection Type:: Clean-Voided Midstream Performed By: #### C UU, ADDONUAPLUS, UHCG ####[place] [id number] [facility] Aspartate aminotransferase [ Enzymatic activity/volume] in Serum or PlasmaOrdered By: Hayder Bonilla on 11-26-2024 AST [Catalytic activity/Vol] 21 U/L Normal 13-39 [facility] Comment on above: Performed By: #### C BC, CMP ####[place] [id number] [facility] Bacteria [Presence] in Urine by AutomatedOrdered By: Hayder Bonilla on 11-26-2024 Bacteria Auto Ql (U) 3+ [HPF] High None Seen [facility] Basophils [#/volume] in Bloo d by Automated countOrdered By: Hayder Bonilla on 11-26-2024 Basophils (Bld) [#/Vol] 0.1 10*3/uL Normal 0.0-0.2 [facility] Comment on above: Result Comment: PERF ORMED BY: [facility] [address] [place] [address] PATHOLOGIST [employer]AKER OUT INOCENCIO MCKINNON M.D. Performed By: #### C BC, CMP ####[place] [id number] [facility] Basophils/100 leukocytes in Blood by Automated countOrdered By: Hayder Bonilla on 11-26-2024 Basophils/100 WBC (Bld) 0.5 % Normal . [facility] Comment on above: Performed By: #### C BC, CMP ####[place] [id number] [facility] Bilirubin Test strip Ql (U)O rdered By: Hayder Bonilla on 11-26-2024 Bilirubin Ql (U) Negative Negative [facility] Bilirubin.total [Mass/volume ] in Serum or PlasmaOrdered By: Hayder Bonilla on 11-26-2024 Bilirubin [Mass/Vol] 0.6 mg/dL Normal 0.3-1.0 [facility] Comment on above: Performed By: #### C BC, CMP ####[facility] [id number] [place] [id number] [facility] CT abdomen pelvis wo conon 0 11-26-2024 CT abdomen pelvis wo con [facility] [address] [place] [address] [place] [address] CT Scan Report Signed Patient: Erika Don MR#: [id number] : 2005 Acct:[id number] Age/Sex: 19 / F ADM Date: 11/26/24 Loc: ER Room: Type: [facility] ER Attending Dr: Copies to: Hayder Bonilla MD Ordering Provider: Hayder Bonilla MD Date of Service: 11/26/24 CT/CT abdomen pelvis wo con: gjhv CT abdomen pelvis wo con 11/26/2024 1:56 PM SIGNS AND SYMPTOMS: Abdominal pain, recent UTI TECHNIQUE: Multidetector ct axial images of the abdomen and pelvis were obtained without IV contrast. Multiplanar reformats were performed and reviewed to further define anatomy and possible pathology. CT was performed with one or more of the following dose reduction techniques: Automated exposure control, adjustment of the mA and/or kV according to patient size, or use of iterative reconstruction technique. COMPARISON: None. FINDINGS: Lower Chest: Within normal limits. ABDOMEN: Liver: Within normal limits. Bile Ducts: Normal caliber. Gallbladder: No calcified gallstones. Normal caliber wall. Pancreas: Within normal limits. Spleen: Within normal limits. Adrenals: Within normal limits. Kidneys: There is left-sided renal cortical scarring which is chronic in nature. There is prominence of the renal collecting systems right greater than left with fat stranding surrounding the right renal pelvis. Pelvis: Reproductive Organs: No pelvic masses. Ureters: There is mild right hydroureter with fat stranding along the right ureter. Bladder: Within normal limits. Bowel: Normal caliber. There is a normal appendix in the right lower quadrant. Mesenteric Lymph Nodes: Mildly prominent mesenteric lymph nodes are noted extending into the right lower quadrant. Peritoneum: No ascites or free air, no fluid collection. Vessels: within normal limits Retroperitoneum: Within normal limits. Abdominal Wall: Within normal limits Bones: There is hardware fixation of the thoracic spine. Degenerative changes are noted in the sacroiliac joints. CT/CT abdomen pelvis wo con IMPRESSION: Stranding is noted along the right renal pelvis with mild right hydronephrosis. There is also fat stranding along the right ureter with adjacent edema. This suggests an ascending urinary tract infection. No obstructing stone. Impression dictated by: Vj Callejas M.D. 11/26/2024 2:12 PM Dictation Location: [place] [address] Transcribed By: [facility] 11/26/24 1412 Dictated By: Vj Callejas II, MD 11/26/24 1408 Signed By: 11/26/24 1412 Normal [facility] Calcium [Mass/volume] in Ser um or PlasmaOrdered By: Hayder Bonilla on 11-26-2024 Calcium [Mass/Vol] 8.9 mg/dL Normal 8.6-10.3 [facility] Comment on above: Performed By: #### C BC, CMP ####[place] [id number] [place] [id number] [facility] Carbon dioxide, total [Moles /volume] in Serum or PlasmaOrdered By: Hayder Bonilla on 11-26-2024 CO2 [Moles/Vol] 25.4 mmol/L Normal 21.0-31.0 [facility] Comment on above: Performed By: #### C BC, CMP ####[place] [address] [place] [address] [place] Chloride [Moles/volume] in S chantelle or PlasmaOrdered By: Hayder Bonilla on 11-26-2024 Chloride [Moles/Vol] 105 mmol/L Normal 98-107 [facility] Comment on above: Performed By: #### C BC, CMP ####[place] [address] [place] [address] [place] Color of Urine by AutoOrdere d By: Hayder Bonilla on 11-26-2024 Color (U) Yellow Normal Yellow [facility] Comment on above: Order Comment: Name Collection Type:: Clean-Voided Midstream Performed By: #### C UU, ADDMARIOUAPLUS, UHCG ####[address] Complete Blood Count Auto Di ffon 11-26-2024 Mean Corpuscular HGB Conc 32.8 g/dL Normal 32.0-35.0 [facility] Comment on above: Performed By: #### C BC, CMP ####[address] Monocytes/100 WBC (Bld) 19.34 % Normal 0.00-20.00 [facility] Comment on above: Performed By: #### C BC, CMP ####[address] NRBC% 0.0 /100{WBC} Normal 0-0.5 [facility] Comment on above: Performed By: #### C BC, CMP ####[address] White Blood Count 19.9 [CFU]/mL High 3.8-11.6 [facility] Comment on above: Performed By: #### C BC, CMP ####[address] Comprehensive Metabolic Pane bren 11-26-2024 Albumin [Mass/Vol] 4.2 g/dL Normal 3.5-5.7 [facility] Comment on above: Performed By: #### C BC, CMP ####[address] Creatinine Clr Calc Pharmacy 134.64 Normal [facility] Comment on above: Result Comment: PERF ORMED BY: [facility] [address] [address] PATHOLOGIST SHAKER OUT INOCENCIO MCKINNON M.D. Performed By: #### C BC, CMP ####[address] GFR/1.73 sq M.predicted MDRD (S/P/Bld) [Vol rate/Area] mL/min/{1.73_m2} Normal [facility] Comment on above: Performed By: #### C BC, CMP ####[place] [id number] [facility] Creatinine [Mass/volume] in Serum or PlasmaOrdered By: Hayder Bonilla on 11-26-2024 Creatinine [Mass/Vol] 0.71 mg/dL Normal 0.60-1.20 [facility] Comment on above: Performed By: #### C BC, CMP ####[address] [address] [facility] Dipstick and Microscopicon 0 11-26-2024 Bacteria,Urine 3+ [HPF] Normal None Seen [facility] Comment on above: Order Comment: Name Collection Type:: Clean-Voided Midstream Performed By: #### C UU, ADDONUAPLUS, UHCG ####[address] [address] [facility] Bilirubin,Urine Negative Normal Negative [facility] Comment on above: Order Comment: Name Collection Type:: Clean-Voided Midstream Performed By: #### C UU, ADDONUAPLUS, UHCG ####[place] [id number] [facility] Glucose Ql (U) Normal Normal Normal [facility] Comment on above: Order Comment: Name Collection Type:: Clean-Voided Midstream Performed By: #### C UU, ADDONUAPLUS, UHCG ####[address] [address] [facility] Hyaline Casts,Urine None Normal 0-8 [facility] Comment on above: Order Comment: Name Collection Type:: Clean-Voided Midstream Performed By: #### C UU, ADDONUAPLUS, UHCG ####[address] [address] [facility] Mucus,Urine Rare Normal [facility] Comment on above: Order Comment: Name Collection Type:: Clean-Voided Midstream Performed By: #### C UU, ADDONUAPLUS, UHCG ####[place] [id number] [facility] Nitrite,Urine Positive Normal Negative [facility] Comment on above: Order Comment: Name Collection Type:: Clean-Voided Midstream Performed By: #### C UU, ADDONUAPLUS, UHCG ####[address] Non-Squamous Epithelial Cell,U 1-2 Normal None Seen [facility] Comment on above: Order Comment: Name Collection Type:: Clean-Voided Midstream Performed By: #### C UU, ADDONUAPLUS, UHCG ####[place] [id number] [facility] Occult Blood,Urine 3+ Normal Negative [facility] Comment on above: Order Comment: Name Collection Type:: Clean-Voided Midstream Performed By: #### C UU, ADDONUAPLUS, UHCG ####[address] RBC,Urine Innumerable Normal 0-4 [facility] Comment on above: Order Comment: Name Collection Type:: Clean-Voided Midstream Performed By: #### C UU, ADDONUAPLUS, UHCG ####[address] Specificy [place],Urine 1.016 Normal 1.001-1.030 [facility] Comment on above: Order Comment: Name Collection Type:: Clean-Voided Midstream Performed By: #### C UU, ADDONUAPLUS, UHCG ####[place] [id number] [facility] Squamous Epithelial Cell,Urine 5-9 Normal 0-2 [facility] Comment on above: Order Comment: Name Collection Type:: Clean-Voided Midstream Performed By: #### C UU, ADDONUAPLUS, UHCG ####[address] Urobilinogen,Urine Normal Normal Normal [facility] Comment on above: Order Comment: Name Collection Type:: Clean-Voided Midstream Performed By: #### C UU, ADDONUAPLUS, UHCG ####[place] [id number] [place] [id number] [facility] WBC CLUMP, Urine Many Normal None Seen [facility] Comment on above: Order Comment: Name Collection Type:: Clean-Voided Midstream Performed By: #### C UU, ADDONUAPLUS, UHCG ####[place] [id number] [facility] WBC,Urine Innumerable Normal 0-4 [facility] Comment on above: Order Comment: Name Collection Type:: Clean-Voided Midstream Performed By: #### C UU, ADDONUAPLUS, [facility] ####[address] Eosinophils [#/volume] in Bl ood by Automated countOrdered By: Hayder Bonilla on 11-26-2024 Eosinophils (Bld) [#/Vol] 0.0 10*3/uL Normal 0.0-0.45 [facility] Comment on above: Performed By: #### C BC, CMP ####[address] Eosinophils/100 leukocytes i n Blood by Automated countOrdered By: Hayder Bonilla on 11-26-2024 Eosinophils/100 WBC (Bld) 0.2 % Normal . [facility] Comment on above: Performed By: #### C BC, CMP ####[address] Epithelial cells.non-squamou s [#/area] in Urine sediment by Automated countOrdered By: Hayder Bonilla on 11-26-2024 Epithelial cells.non-squamous Auto (Urine sed) [#/Area] 1-2 [HPF] High None Seen [facility] Epithelial cells.squamous [# /area] in Urine sediment by Automated countOrdered By: Hayder Bonilla on 11-26-2024 Epithelial cells.squamous Auto (Urine sed) [#/Area] 5-9 [HPF] High 0-2 [facility] Erythrocyte distribution wid th [Ratio] by Automated countOrdered By: Hayder Bonilla on 11-26-2024 Erythrocyte distribution width (RBC) [Ratio] 14.0 % Normal 11.9-15.3 [facility] Comment on above: Performed By: #### C AURORA, CMP ####[facility] [place] [id number] [facility] Erythrocytes [#/area] in Uri ne sediment by Automated countOrdered By: Hayder Bonilla on 11-26-2024 RBC Auto (Urine sed) [#/Area] Innumerable [HPF] High 0-4 [facility] Erythrocytes [#/volume] in B lood by Automated countOrdered By: Hayder Bonilla on 11-26-2024 RBC (Bld) [#/Vol] 4.75 10*6/uL Normal 3.60-5.00 [facility] Comment on above: Performed By: #### C AURORA, CMP ####[facility] [id number] Glomerular filtration rate [ Volume Rate/Area] in Serum, Plasma or Blood by CreatinineOrdered By: Hayder Bonilla on 11-26-2024 Glomerular filtration rate [Volume Rate/Area] in Serum, Plasma or Blood by Creatinine > 60.0 mL/Min [facility] Glucose [Mass/volume] in Ser um or PlasmaOrdered By: Hayder Bonilla on 11-26-2024 Glucose [Mass/Vol] 112 mg/dL High 70-100 [facility] Comment on above: ADA recommended refe rence rangeRandom Glucose Reference Range is dependent on time and content of last meal. Glucose of more than 200 mg/dL in a nonstressed, ambulatory subject supports the diagnosis of Diabetes Mellitus. Result Comment: Boyd om Glucose Reference Range is dependent on time and content of last meal. Glucose of more than 200 mg/dL in a nonstressed, ambulatory subject supports the diagnosis of Diabetes Mellitus. ADA recommended reference range Performed By: #### C AURORA, CMP ####[facility] [id number] [facility] Glucose [Mass/volume] in Uri ne by Test stripOrdered By: Hayder Bonilla on 11-26-2024 Glucose Test strip (U) [Mass/Vol] Normal mg/dL Normal [facility] HCG ( test) IA.rapi d Ql (U)Ordered By: Hayder Bonilla on 11-26-2024 HCG ( test) Ql (U) Negative [facility] HCG,Urineon 11-26-2024 Beta HCG ( test) Ql (U) Negative Normal [facility] Comment on above: Order Comment: Name Collection Type:: Clean-Voided Midstream Result Comment: PERF ORMED BY: [facility] [address] [place] [address] PATHOLOGIST SHAKER OUT INOCENCIO MCKINNON M.D. Performed By: #### C UU, CHAR, [facility] ####[address] Hematocrit [Volume Fraction] of Blood by Automated countOrdered By: Hayder Bonilla on 11-26-2024 Hematocrit (Bld) [Volume fraction] 39.5 % Normal 34.0-46.4 [facility] Comment on above: Performed By: #### C BC, CMP ####[address] Hemoglobin Test strip Ql (U) Ordered By: Hayder Bonilla on 11-26-2024 Hemoglobin Ql (U) 3+ High Negative [facility] Hemoglobin [Mass/volume] in BloodOrdered By: Hayder Bonilla on 11-26-2024 Hemoglobin (Bld) [Mass/Vol] 13.0 g/dL Normal 11.8-15.4 [facility] Comment on above: Performed By: #### C BC, CMP ####[address] Hyaline casts [#/area] in Ur ine sediment by Automated countOrdered By: Hayder Bonilla on 11-26-2024 Hyaline casts Auto (Urine sed) [#/Area] None [LPF] 0-8 [facility] Ketones [Presence] in Urine by Test stripOrdered By: Hayder Bonilla on 11-26-2024 Ketones Ql (U) Negative Normal Negative [facility] Comment on above: Order Comment: Name Collection Type:: Clean-Voided Midstream Performed By: #### C UU, ADDONUAPLUS, [facility] ####[address] Leukocyte clumps [Presence] in Urine by AutomatedOrdered By: Hayder Bonilla on 11-26-2024 Leukocyte clumps Auto Ql (U) Many [LPF] High None Seen [facility] Leukocyte esterase [Presence ] in Urine by Test stripOrdered By: Hayder Bonilla on 11-26-2024 Leukocyte esterase Test strip Ql (U) 4+ Normal Negative [facility] Comment on above: Order Comment: Name Collection Type:: Clean-Voided Midstream Performed By: #### C UU, ADDONUAPLUS, CG ####[address] Leukocytes [#/area] in Urine sediment by Automated countOrdered By: Hayder Bonilla on 11-26-2024 WBC Auto (Urine sed) [#/Area] Innumerable [HPF] High 0-4 [facility] Leukocytes [#/volume] correc joi for nucleated erythrocytes in Blood by Automated counOrdered By: Hayder Bonilla on 11-26-2024 WBC corrected for nucl RBC Auto (Bld) [#/Vol] 19.9 10*3/uL High 3.8-11.6 [facility] Leukocytes [#/volume] in Blo od by Automated countOrdered By: Hayder Bonilla on 11-26-2024 WBC (Bld) [#/Vol] 19.9 10*3/uL High 3.8-11.6 [facility] Comment on above: Performed By: #### C BC, CMP ####[address] Lymphocytes [#/volume] in Bl ood by Automated countOrdered By: Hayder Bonilla on 11-26-2024 Lymphocytes (Bld) [#/Vol] 1.8 10*3/uL Normal 1.00-4.8 [facility] Comment on above: Performed By: #### C BC, CMP ####[address] Lymphocytes/100 leukocytes i n Blood by Automated countOrdered By: Hayder Bonilla on 11-26-2024 Lymphocytes/100 WBC (Bld) 8.9 % Normal . [facility] Comment on above: Performed By: #### C BC, CMP ####[address] MCH [Entitic mass] by Automa joi countOrdered By: Hayder Bonilla on 11-26-2024 MCH (RBC) [Entitic mass] 27.3 pg Normal 24.7-34.3 [facility] Comment on above: Performed By: #### C BC, CMP ####[address] MCHC Auto (RBC) [Mass/Vol]Or dered By: Hayder Bonilla on 11-26-2024 MCHC (RBC) [Mass/Vol] 32.8 g/dL 32.0-35.0 [facility] MCV [Entitic volume] by Auto mated countOrdered By: Hayder Bonilla on 11-26-2024 MCV (RBC) [Entitic vol] 83.0 fL Normal 80-100 [facility] Comment on above: Performed By: #### C BC, CMP ####[address] Monocyte distribution width [Entitic volume] in Blood by AutomatedOrdered By: Hayder Bonilla on 11-26-2024 Monocyte distribution width Auto (Bld) [Entitic vol] 19.34 % 0.00-20.00 [facility] Monocytes [#/volume] in Bloo d by Automated countOrdered By: Hayder Bonilla on 11-26-2024 Monocytes (Bld) [#/Vol] 1.4 10*3/uL High 0.0-0.8 [facility] Comment on above: Performed By: #### C BC, CMP ####[place] [id number] [facility] Monocytes/100 leukocytes in Blood by Automated countOrdered By: Hayder Bonilla on 11-26-2024 Monocytes/100 WBC (Bld) 7.0 % Normal . [facility] Comment on above: Performed By: #### C BC, CMP ####[address] Mucus [Presence] in Urine by AutomatedOrdered By: Hayder Bonilla on 11-26-2024 Mucus Auto Ql (U) Rare [LPF] [facility] Neutrophils [#/volume] in Bl ood by Automated countOrdered By: Hayder Bonilla on 11-26-2024 Neutrophils (Bld) [#/Vol] 16.6 10*3/uL High 1.8-7.7 [facility] Comment on above: Performed By: #### C AURORA, CMP ####[place] [id number] [facility] Neutrophils/100 leukocytes i n Blood by Automated countOrdered By: Hayder Bonilla on 11-26-2024 Neutrophils/100 WBC (Bld) 83.4 % Normal . [facility] Comment on above: Performed By: #### C AURORA, CMP ####[place] [id number] [facility] Nitrite Test strip Ql (U)Ord ered By: Hayder Bonilla on 11-26-2024 Nitrite Ql (U) Positive High Negative [facility] No Panel InformationOrdered By: Hayder Bonilla on 11-26-2024 Pharmacy Creatinine Clearance (Chem 134.64 [facility] Nucleated erythrocytes [Pres ence] in Blood by Automated countOrdered By: Hayder Bonilla on 11-26-2024 Nucleated RBC Auto Ql (Bld) 0.0 /100{WBC} 0-0.5 [facility] Platelet mean volume [Entiti c volume] in Blood by Automated countOrdered By: Hayder Bonilla on 11-26-2024 Platelet mean volume (Bld) [Entitic vol] 8.3 fL Normal 6.3-10.7 [facility] Comment on above: Performed By: #### C BC, CMP ####[id number] [place] [id number] [place] Platelets [#/volume] in Bloo d by Automated countOrdered By: Hayder Bonilla on 11-26-2024 Platelets (Bld) [#/Vol] 309 10*3/uL Normal 150-450 [facility] Comment on above: Performed By: #### C BC, CMP ####[place] [id number] [facility] Potassium [Moles/volume] in Serum or PlasmaOrdered By: Hayder Bonilla on 11-26-2024 Potassium [Moles/Vol] 3.5 mmol/L Normal 3.5-5.1 [facility] Comment on above: Performed By: #### C BC, CMP ####[place] [id number] [facility] Protein [Mass/volume] in Ser um or PlasmaOrdered By: Hayder Bonilla on 11-26-2024 Protein [Mass/Vol] 7.1 g/dL Normal 6.4-8.9 [facility] Comment on above: Performed By: #### C BC, CMP ####[place] [id number] [facility] Protein [Mass/volume] in Uri ne by Test stripOrdered By: Hayder Bonilla on 11-26-2024 Protein (U) [Mass/Vol] 200 mg/dL Normal Negative [facility] Comment on above: Order Comment: Name Collection Type:: Clean-Voided Midstream Performed By: #### C UU, ADDONUAPLUS, UHCG ####[place] [id number] [facility] Serum globulin measurement b y calculation (mass/volume)Ordered By: Hayder Bonilla on 11-26-2024 Globulin (S) [Mass/Vol] 2.9 g/dL Normal [facility] Comment on above: Performed By: #### C BC, CMP ####[place] [id number] [facility] Serum or plasma albumin/glob ulin mass ratioOrdered By: Hayder Bonilla on 11-26-2024 Albumin/Globulin [Mass ratio] 1.4 {ratio} Normal [facility] Comment on above: Performed By: #### C BC, CMP ####[place] [id number] [facility] Serum or plasma anion gap de terminationOrdered By: Hayder Bonilla on 11-26-2024 Anion gap [Moles/Vol] 10.1 mmol/L Normal 6.0-15.0 [facility] Comment on above: Performed By: #### C BC, CMP ####[address] [id number] [place] [id number] [facility] Sodium [Moles/volume] in Ser um or PlasmaOrdered By: Hayder Bonilla on 11-26-2024 Sodium [Moles/Vol] 137 mmol/L Normal 136-145 [facility] Comment on above: Performed By: #### C AURORA, CMP ####[place] [id number] Specific gravity Test strip (U) [Rel density]Ordered By: Hayder Bonilla on 11-26-2024 Specific gravity (U) [Rel density] 1.016 1.001-1.030 [facility] Urea nitrogen [Mass/volume] in Serum or PlasmaOrdered By: Hayder Bonilla on 11-26-2024 Urea nitrogen [Mass/Vol] 7 mg/dL Normal 7-25 [facility] Comment on above: Performed By: #### C AURORA, CMP ####[address] Urine Cultureon 11-26-2024 Bacteria identified Cx Nom (U) ORGANISM: Escherichia coli (O:ESCCOL) [place] Count >100,000 Aerobic AMAYA Charge (NMIC56) ----- SUSCEPTIBILITY ---- ORGANISM: O:ESCCOL ANTIBIOTIC INTERPRETATION AMAYA Amikacin S <16 Amoxacillin/K Clavulanate S <8 Ampicillin S <8 Ampicillin/Sulbactam S <4 Aztreonam S <4 Cefazolin S <2 Cefepime S <2 Ceftazidime S <1 Ceftazidime/Avibacta m S <4 Ceftolozane/Tazobact am S <2 Ceftriaxone S <1 Cefuroxime S <4 Ciprofloxacin S <0.25 Ertapenem S <0.5 Gentamicin S <2 Levofloxacin S <0.5 Meropenem S <1 Meropenem/Vaborbacta m S <2 Nitrofurantoin S <32 Piperacillin/Tazobac cuello S <8 Tetracycline S <4 Tigecycline S <2 Tobramycin S <2 Trimethoprim/Sulfame thoxazole S <0.5 S = SUSCEPTIBLE I = INTERMEDIATE R = RESISTANT BLANK = DATA NOT AVAILABLE, OR DRUG NOT ADVISABLE OR TESTED R* = RESISTANCE DUE TO EXTENDED SPECTRUM BETA-LACTAMASES ESBL = EXTENDED SPECTRUM BETA-LACTAMASE TFG = THYMIDINE-DEPENDENT STRAIN EWA = BETA-LACTAMASE POSITIVE IB = INDUCIBLE BETA-LACTAMASE. APPEARS IN PLACE OF 'S' WITH SPECIES KNOWN TO POSSESS INDUCIBLE BETA-LACTAMASES. POTENTIALLY THEY MAY BECOME RESISTANT TO ALL B-LACTAM DRUGS. PERFORMED BY: [facility] [address] [id number] PATHOLOGIST SHAKER OUT INOCENCIO MCKINNON M.D. Normal [facility] Comment on above: Performed By: #### C CHAR RAO [facility] ####[facility] [id number] [facility] Urine cultureOrdered By: Ubaldo Bonilla on 11-26-2024 Bacteria identified Cx Nom (U) Escherichia coli Abnormal [facility] Urobilinogen Test strip (U) [Mass/Vol]Ordered By: Hayder Bonilla on 11-26-2024 Urobilinogen (U) [Mass/Vol] Normal mg/dL Normal [facility] pH of Urine by Test stripOrd ered By: Hayder Bonilla on 11-26-2024 pH (U) 6.5 [pH] Normal 5.0-9.0 [facility] Comment on above: Order Comment: Name Collection Type:: Clean-Voided Midstream Performed By: #### C CHAR RAO [facility] ####[facility] [id number] [facility] Urine Cultureon 11-16-2024 Bacteria identified Cx Nom (U) ORGANISM: Escherichia coli (O:ESCCOL) [place] Count >100,000 Aerobic AMAYA Charge (NMIC56) ----- SUSCEPTIBILITY ---- ORGANISM: O:ESCCOL ANTIBIOTIC INTERPRETATION AMAYA Amikacin S <16 Amoxacillin/K Clavulanate S <8 Ampicillin S <8 Ampicillin/Sulbactam S <4 Aztreonam S <4 Cefazolin S <2 Cefepime S <2 Ceftazidime S <1 Ceftazidime/Avibacta m S <4 Ceftolozane/Tazobact am S <2 Ceftriaxone S <1 Cefuroxime S <4 Ciprofloxacin S <0.25 Ertapenem S <0.5 Gentamicin S <2 Levofloxacin S <0.5 Meropenem S <1 Meropenem/Vaborbacta m S <2 Nitrofurantoin S <32 Piperacillin/Tazobac cuello S <8 Tetracycline S <4 Tigecycline S <2 Tobramycin S <2 Trimethoprim/Sulfame thoxazole S <0.5 S = SUSCEPTIBLE I = INTERMEDIATE R = RESISTANT BLANK = DATA NOT AVAILABLE, OR DRUG NOT ADVISABLE OR TESTED R* = RESISTANCE DUE TO EXTENDED SPECTRUM BETA-LACTAMASES ESBL = EXTENDED SPECTRUM BETA-LACTAMASE TFG = THYMIDINE-DEPENDENT STRAIN EWA = BETA-LACTAMASE POSITIVE IB = INDUCIBLE BETA-LACTAMASE. APPEARS IN PLACE OF 'S' WITH SPECIES KNOWN TO POSSESS INDUCIBLE BETA-LACTAMASES. POTENTIALLY THEY MAY BECOME RESISTANT TO ALL B-LACTAM DRUGS. PERFORMED BY: [facility] [address] [place] [address] PATHOLOGIST SHAKER OUT INOCENCIO MCKINNON M.D. Normal [facility] Comment on above: Performed By: #### C UU ####[facility] [id number] [id number] [facility] Urine cultureOrdered By: Dominik Anglin on 11-16-2024 Bacteria identified Cx Nom (U) Escherichia coli Abnormal [facility] No Panel InformationOrdered By: Apple FIGUEROA on 10-28-2024 Mycoplasma genitalium BERNADETTE Negative Negative [facility] - Microbiology an d Antimicrobial susceptibilityOrdered By: Apple FIGUEROA on 10-27-2024 C. trachomatis DNA BERNADETTE+probe Ql (Unsp spec) Negative Negative [facility] N. gonorrhoeae DNA BERNADETTE+probe Ql (Vag fld) Negative Negative [facility] T. vaginalis DNA BERNADETTE+probe Ql (Vag fld) Negative Negative [facility] A. vaginae DNA BERNADETTE+probe Ql (Vag fld) Low - 0 [facility] Bacterial vaginosis associated bacterium 2 DNA BERNADETTE+probe Ql (Vag fld) High - 2 Abnormal [facility] C. albicans DNA BERNADETTE+probe Ql (Vag fld) Negative Negative [facility] C. glabrata DNA BERNADETTE+probe Ql (Vag fld) Negative Negative [facility] Megasphaera sp type 1 DNA BERNADETTE+probe Ql (Vag fld) High - 2 Abnormal [facility] Comment on above: Calculate total scor e by adding the 3 individual bacterialvaginosis (BV) marker scores together. Total score isinterpreted as follows:Total score 0-1: Indicates the absence of BV.Total score 2: Indeterminate for BV. Additional clinical data should be evaluated to establish a diagnosis.Total score 3-6: Indicates the presence of BV.Performed by:[employer] () ECG 12 lead ECGon 10-14-2024 ECG 12 lead ECG [facility] [place] [address] [place] [address] Electrocardiograph Report Signed Patient: Erika Don MR#: [id number] : 2005 Acct:[id number] Age/Sex: 18 / F ADM Date: 10/14/24 Loc: Room: [address] [place] [address] Type: ADM IN Attending Dr: Johnnie Clements [...] previous ECGs available Confirmed by Mauricio Gonzalez ([id number]) on 10/14/2024 6:25:38 PM Referred By: Electronically Signed By: Mauricio Gonzalez Transcribed By: MUS Signed By Mauricio Gonzalez MD 10/14/24 [id number] Normal [facility] Lipid Panelon 07-12-2025 Cholesterol [Mass/Vol] 102 mg/dL Low 140-200 [facility] Comment on above: Result Comment: Chol less than 200 mg/dl low risk Chol 201-239 mg/dl borderline risk Chol 240 mg/dl and greater high risk Performed By: #### V [id number], TSH3 wRFLX, LIPID ####[place] [id number] [facility] Cholesterol in HDL [Mass/Vol] 37 mg/dL Normal 23-92 [facility] Comment on above: Result Comment: HDL CHOL ATP-III CLASSIFICATION Cardiovascular Risk HDL > or equal to 60 mg/dL LOW HDL < 40 mg/dL HIGH Performed By: #### V [id number], TSH3 wRFLX, LIPID ####[address] Cholesterol.total/Carolyn sterol in HDL [Mass ratio] 2.8 {ratio} Normal <5.0 [facility] Comment on above: Performed By: #### V [id number], TSH3 wRFLX, LIPID ####[address] LDL Cholesterol,Calculated 45 mg/dL Normal 0-100 [facility] Comment on above: Result Comment: LDL ATP III CLASSIFICATION LDL less than 100 mg/dL Optimal LDL 100-129 mg/dL Near or above optimal LDL 130-159 mg/dL Borderline high LDL 160-189 mg/dL High LDL greater than 189 mg/dL Very high Performed By: #### V [id number], TSH3 wRFLX, LIPID ####[place] [id number] [facility] Triglyceride w/Reflex 99 mg/dL Normal 0-149 [facility] Comment on above: Result Comment: TRIG ATP III CLASSIFICATION TRIG less than 150 mg/dL Normal TRIG 150-199 mg/dL Borderline high TRIG 200-500 mg/dL High TRIG greater than 500 mg/dL Very high Standard traceable to the Center for Disease Conrtrol and Prevention (CDC) test method. Performed By: #### V [id number], TSH3 wRFLX, LIPID ####[place] [id number] [facility] VLDL CHOLESTEROL 19 mg/dL Normal [facility] Comment on above: Performed By: #### V [id number], TSH3 wRFLX, LIPID ####[address] [place] [address] [facility] Thyroid Stim Hormone w/Rflxo n 10-14-2024 Thyroid Stim Hormone w/Rflx 0.54 u[iU]/mL Normal 0.45-5.33 [facility] Comment on above: Performed By: #### V [id number], TSH3 wRFLX, LIPID ####[address] [place] [address] [facility] Vitamin D 25 Hydroxy Totalon 10-14-2024 Vitamin D 25 Hydroxy Total 12.1 ng/mL Low 30-100 [facility] Comment on above: Result Comment: DARWIN MIN D STATUS 25(OH)VITAMIN D RANGE (ng/mL) Deficient <20 Insufficient 20 to <30 Sufficient 30 to 100 Reference: Fernando MF,Cristian NC, Tamara THORNTON, et al. Evaluation,treatment, and prevention of vitamin D deficiency; an Endocrine Society clinical practice guideline. JCEM. 2010; 96(7):1911-30. PERFORMED BY: [facility] [address] [facility] [place] [address] PATHOLOGIST SHAKER OUT INOCENCIO MCKINNON M.D. Performed By: #### V [id number], TSH3 wRFLX, LIPID ####[address] [address] [place] [address] [facility] ACETAMINOPHEN LEVELon 2024 Acetaminophen [Mass/Vol] 4.6 ug/mL Low 10.0-30.0 [facility] Comment on above: Order Comment: Refer ence ranges are for therapeutic limits. Performed By: #### A CETA #### [facility] ([address] [place] [address] [facility] BASIC METABOLIC PANELon 10-03 Anion gap [Moles/Vol] 6 mmol/L Normal 5-15 [facility] Comment on above: Performed By: #### B MP #### [facility] ([address] [place] [address] VIR Calcium [Mass/Vol] 8.8 mg/dL Normal 8.5-10.5 [facility] Comment on above: Performed By: #### B MP #### [facility] ([address] [place] [address] VIR Chloride [Moles/Vol] 108 mmol/L Normal 98-109 [facility] Comment on above: Performed By: #### B MP #### [facility] ([address] [place] [address] VIR CO2 [Moles/Vol] 24 mmol/L Normal 22-32 [facility] Comment on above: Performed By: #### B MP #### [facility] ([address] [place] [address] VIR Creatinine [Mass/Vol] 0.78 mg/dL Normal 0.40-1.00 [facility] Comment on above: Result Comment: METH OD TRACEABLE TO IDMS STANDARD Performed By: #### B MP #### [facility] ([address] [place] [address] VIR EGFR (CKD-EPI) NON-RACE DEPENDENT >^90 Normal >=60 [facility] Comment on above: Result Comment: eGFR not reported due to non-numeric value for Creatinine. Reported eGFR is based on the CKD-EPI 2021 equation that does not use a race coefficient. Performed By: #### B MP #### [facility] ([address] [place] [address] VIR Glucose [Mass/Vol] 95 mg/dL Normal 65-99 [facility] Comment on above: Performed By: #### B MP #### [facility] ([address] [place] [address] VIR Potassium [Moles/Vol] 3.2 mmol/L Low 3.5-5.0 [facility] Comment on above: Performed By: #### B MP #### [facility] ([facility]) [address] [place] [address]. [place] [address] VIR Sodium [Moles/Vol] 138 mmol/L Normal 134-146 [facility] Comment on above: Performed By: #### B MP #### [facility] ([address] [place] [address] VIR Urea nitrogen [Mass/Vol] 9 mg/dL Normal 5-23 [facility] Comment on above: Performed By: #### B MP #### [facility] ([address] [place] [address] VIR CBC WITH AUTO DIFFERENTIALon 10-13-2024 BASOPHILS ABSOLUTE COUNT (10*3/UL) BY AUTOMATED COUNT 0.0 10*3/uL Normal 0.0-0.2 [facility] Comment on above: Performed By: #### C BCA #### [facility] ([address] [place] [address] VIR BASOPHILS RELATIVE PERCENT BY AUTOMATED COUNT 0.1 % Normal [facility] Comment on above: Performed By: #### C BCA #### [facility] ([address] [address] VIR CELLAVISION DIFFERENTIAL TYPE AUTOMATED DIFFERENTIAL Normal [facility] Comment on above: Performed By: #### C BCA #### [facility] ([address] [place] [address] VIR Eosinophils (Bld) [#/Vol] 0.0 10*3/uL Normal 0.0-0.4 [facility] Comment on above: Performed By: #### C BCA #### [facility] ([address] [place] [address] VIR EOSINOPHILS RELATIVE PERCENT BY AUTOMATED COUNT 0.4 % Normal [facility] Comment on above: Performed By: #### C BCA #### [facility] ([address] [address] VIR Erythrocyte distribution width (RBC) [Ratio] 13.6 % Normal 11.5-15 [facility] Comment on above: Performed By: #### C BCA #### [facility] ([address] [address] VIR Hematocrit (Bld) [Volume fraction] 40.9 % Normal 35-47 [facility] Comment on above: Performed By: #### C BCA #### [facility] ([address] [address] VIR Hemoglobin (Bld) [Mass/Vol] 13.7 g/dL Normal 11.7-15.5 [facility] Comment on above: Performed By: #### C BCA #### [facility] ([address] [address] VIR LYMPHOCYTES ABSOLUTE COUNT (10*3/UL) BY AUTOMATED COUNT 1.3 10*3/uL Normal 1.0-3.5 [facility] Comment on above: Performed By: #### C BCA #### [facility] ([address] [address] VIR LYMPHOCYTES RELATIVE PERCENT BY AUTOMATED COUNT 11.0 % Normal [facility] Comment on above: Performed By: #### C BCA #### [facility] ([address] [address] VIR MCH (RBC) [Entitic mass] 27.2 pg Normal 27-34 [facility] Comment on above: Performed By: #### C BCA #### [facility] ([address] [address] VIR MCHC (RBC) [Mass/Vol] 33.4 g/dL Normal 32-36 [facility] Comment on above: Performed By: #### C BCA #### [facility] ([address] [place] [address] VIR MCV (RBC) [Entitic vol] 82 fL Normal 80-100 [facility] Comment on above: Performed By: #### C BCA #### [facility] ([address] [place] [address] VIR MONOCYTES ABSOLUTE COUNT (10*3/UL) BY AUTOMATED COUNT 0.7 10*3/uL Normal 0.0-0.9 [facility] Comment on above: Performed By: #### C BCA #### [facility] ([address] [place] [address] VIR MONOCYTES RELATIVE PERCENT BY AUTOMATED COUNT 6.0 % Normal [facility] Comment on above: Performed By: #### C BCA #### [facility] ([address] [place] [address] VIR NEUTROPHILS ABSOLUTE COUNT BY AUTOMATED COUNT 9.6 10*3/uL High 1.5-6.6 [facility] Comment on above: Performed By: #### C BCA #### [facility] ([address] [address] VIR NEUTROPHILS RELATIVE PERCENT BY AUTOMATED COUNT 82.5 % Normal [facility] Comment on above: Performed By: #### C BCA #### [facility] ([address] [place] [address] VIR Platelet mean volume (Bld) [Entitic vol] 8.4 fL Normal 7-12 [facility] Comment on above: Performed By: #### C BCA #### [facility] ([address] [place] [address] VIR Platelets (Bld) [#/Vol] 340 10*3/uL Normal 150-450 [facility] Comment on above: Performed By: #### C BCA #### [facility] ([address] [place] [address] VIR RBC COUNT 5.02 X10E12/L Normal 3.8-5.2 [facility] Comment on above: Performed By: #### C BCA #### [facility] ([address] [address] VIR WBC (Bld) [#/Vol] 11.6 10*3/uL High 4-11 [facility] Comment on above: Performed By: #### C BCA #### [facility] ([address] [address] VIR DRUG SCREEN, URINEon 025 AMPHETAMINE/METHAMP Negative Normal Negative [facility] Comment on above: Order Comment: Confi rmation available upon request. Result Comment: AMPH /METH screening cut off = 1000 ng/mL Performed By: #### B MP #### [facility] ([address] [address] VIR BARBITURATES Negative Normal Negative [facility] Comment on above: Order Comment: Confi rmation available upon request. Result Comment: Keira iturates screening cut off value = 200 ng/mL Performed By: #### B MP #### [facility] ([address] [address] VIR BENZODIAZEPINES Negative Normal Negative [facility] Comment on above: Order Comment: Confi rmation available upon request. Result Comment: Terrence odiazepines screening cut off value = 200 ng/mL Performed By: #### B MP #### [facility] ([address] [address] VIR CANNABINOIDS Positive Abnormal Negative [facility] Comment on above: Order Comment: Confi rmation available upon request. Result Comment: Dexter abinoids/THC screening cut off value = 50 ng/mL Performed By: #### B MP #### [facility] ([address] [address] VIR COCAINE METABOLITE Negative Normal Negative [facility] Comment on above: Order Comment: Confi rmation available upon request. Result Comment: Coca ine screening cut off value = 300 ng/mL Performed By: #### B MP #### [facility] ([address] [address] VIR ECSTASY Negative Normal Negative [facility] Comment on above: Order Comment: Confi rmation available upon request. Result Comment: Ecst asy screening cut off value = 500 ng/mL Performed By: #### B MP #### [facility] ([address] [address] VIR METHADONE Negative Normal Negative [facility] Comment on above: Order Comment: Confi rmation available upon request. Result Comment: Meth adone screening cut off value = 300 ng/mL. Performed By: #### B MP #### [facility] ([address] [address] VIR OPIATES Negative Normal Negative [facility] Comment on above: Order Comment: Confi rmation available upon request. Result Comment: Opia angela screening cut off value = 300 ng/mL This test is used for the detection of codeine, hydrocodone (>1000 ng/mL), morphine and hydromorphone (>900 ng/mL) in urine. Performed By: #### B MP #### [facility] ([address] [address] VIR OXYCODONE Negative Normal Negative [facility] Comment on above: Order Comment: Confi rmation available upon request. Result Comment: Oxyc odone screening cut off value = 300 ng/mL This test is used for the detection of oxycodone and oxymorphone in urine. Performed By: #### B MP #### [facility] ([address] [address] VIR PHENCYCLIDINE Negative Normal Negative [facility] Comment on above: Order Comment: Confi rmation available upon request. Result Comment: Phen cyclidine screening cut off value = 25 ng/mL Performed By: #### B MP #### [facility] ([place] [address] [place] [address] VIR ETHANOLon 10-13-2024 Ethanol [Mass/Vol] mg/dL Normal <=0.080 [facility] Comment on above: Result Comment: This report is intended for use in clinical monitoring or management of patients. Performed By: #### A LCO #### [facility] ([address] [place] [address] VIR LIVER PANELon 10-13-2024 Albumin [Mass/Vol] 4.1 g/dL Normal 3.2-5.3 [facility] Comment on above: Performed By: #### L IVR #### [address] [place] [address] VIR ALP [Catalytic activity/Vol] 82 U/L Normal 39-130 [facility] Comment on above: Performed By: #### L IVR #### [facility] ([address] [place] [address] VIR ALT [Catalytic activity/Vol] 15 U/L Normal <=31 [facility] Comment on above: Performed By: #### L IVR #### [address] [place] [address] VIR AST [Catalytic activity/Vol] 18 U/L Normal <=41 [facility] Comment on above: Performed By: #### L IVR #### [facility] ([address] [place] [address] VIR Bilirubin [Mass/Vol] 0.8 mg/dL Normal 0.3-1.2 [facility] Comment on above: Performed By: #### L IVR #### [facility] ([address] [place] [address] VIR Bilirubin.indirect [Mass/Vol] 0.1 mg/dL Normal <=0.4 [facility] Comment on above: Performed By: #### L IVR #### [facility] ([place] [address] [facility] [place] [address] VIR Protein [Mass/Vol] 7.7 g/dL Normal 6.0-8.0 [facility] Comment on above: Performed By: #### L IVR #### [facility] ([address] [place] [address] VIR MAGNESIUMon 10-13-2024 Magnesium [Mass/Vol] 1.8 mg/dL Normal 1.8-2.6 [facility] Comment on above: Performed By: #### M G #### [facility] ([address] [place] [address] VIR POCT NURSING URINE MACROSCOP IC UAon 10-13-2024 BILIRUBIN [place] Negative Normal Negative [facility] Comment on above: Performed By: #### N UM #### [facility] ([address] [place] [address] VIR BLOOD/HGB [place] Small Abnormal Negative [facility] Comment on above: Performed By: #### N UM #### [facility] ([address] [place] [address] VIR GLUCOSE [place] Negative Normal Negative [facility] Comment on above: Performed By: #### N UM #### [facility] ([address] [place] [address] VIR KETONES [place] 15 mg/dL Abnormal Negative [facility] Comment on above: Performed By: #### N UM #### [facility] ([address] [place] [address] VIR LEUKOCYTE ESTERASE [place] Negative Normal Negative [facility] Comment on above: Performed By: #### N UM #### [facility] ([address] [place] [address] VIR NITRITE [place] Positive Abnormal Negative [facility] Comment on above: Performed By: #### N UM #### [facility] ([address] [place] [address] VIR PH [place] 6.0 Normal 5.0, 6.0, 6.5, 7.0, 7.5, 8.0, 8.5, 5.5 [facility] Comment on above: Performed By: #### N UM #### [facility] ([address] [place] [address] VIR PROTEIN [place] Trace Abnormal Negative [facility] Comment on above: Performed By: #### N UM #### [facility] ([address] [place] [address] VIR SPECIFIC GRAVITY [place] >=1.030 Abnormal 1.010, 1.015, 1.020, 1.025 [facility] Comment on above: Performed By: #### N UM #### [facility] ([address] [place] [address] VIR UROBILINOGEN [place] 0.2 E.U./dL Normal [facility] [place] Comment on above: Performed By: #### N UM #### [facility] ([address] [place] [address] VIR POCT , URINE (NUCG) on 10-13-2024 Beta HCG ( test) Ql (U) Negative Normal Negative, Indeterminate [facility] Comment on above: Performed By: #### B MP #### [facility] ([address] [place] [address] VIR SALICYLATE LEVELon SALICYLATE <^4.0 Normal 2.0-25.0 [facility] Comment on above: Order Comment: Refer ence ranges are for therapeutic limits. Performed By: #### S ALI #### [facility] ([address] [place] [address] VIR THYROID PROFILE INCLUDES TSH FT4on 10-13-2024 Free T4 [Mass/Vol] 0.79 ng/dL Normal 0.61-1.60 [facility] Comment on above: Performed By: #### T HYR #### [facility] ([address] [address] VIR TSH 0.50 uIU/mL Normal 0.49-4.67 [facility] Comment on above: Performed By: #### T HYR #### [facility] ([address] [address] VIR TROP I, HIGH SENSITIVITY 1 H OURon 10-13-2024 TROPONIN I, HIGH SENSITIVITY 2 ng/L Normal <16 [facility] Comment on above: Performed By: #### B MP #### [facility] ([address] [address] VIR TROPONIN I, HIGH SENSITIVITY 0 HOURon 10-13-2024 TROPONIN I, HIGH SENSITIVITY <^2 Normal <16 [facility] Comment on above: Performed By: #### T NIHS0 #### [facility] ([address] [address] VIR X-ray reportOrdered By: Matti Asher on 10-12-2024 Study report [facility] [place] [id number] XRay Report Signed Patient: Zoey Don MR# : [id number] : 2005 Acct:[id number] Age/Sex: 18 / F ADM Date: 5 Loc: ER Room: Type: [facility] ER Attending Dr: Copies to: Rafia Santoyo [...] Brodie Asher MD 10/12/241646 Signed By: 10/12/241647 [facility] Work Phone: XR elbow RT min 3V*on 2024 XR elbow RT min 3V* [facility] [place] [address] [place] [address] XRay Report Signed Patient: Zoey Don MR#: [id number] : 2005 Acct:[id number] Age/Sex: 18 / F ADM Date: 10/12/24 Loc: ER Room: Type: [facility] ER Attending Dr: Copies to: Rafia Santoyo [...] Asher M.D. 10/12/2024 4:48 PM Dictation Location: [id number] Transcribed By: JOSE 10/12/241647 Dictated By: Brodie Asher MD 10/12/241646 Signed By: 10/12/241647 Normal [facility] No Panel InformationOrdered By: Shelley Martinez on 02-22-2024 Quick Strep (POC) [facility] Throat Cultureon 02-22-2024 Throat culture Respiratory Results Moderate Normal Respiratory Ayla 2 Days PERFORMED BY: [facility] [address] [place] [address] PATHOLOGIST SHAKER OUT SHERRY MUNGUIA M.D. Normal [facility] Comment on above: Performed By: #### C MO ####[facility] [id number] [place] [address] [facility] XR SPINE SCOLIOSIS 2 OR 3 VW [...] Solis DO on 05/17/2023 2:48 PM Normal [facility] STREPT SCREENon 03-10-2022 STREP SCREEN A Positive Abnormal NEGATIVE [facility] Comment on above: Performed By: #### S SCRN #### [facility] [address] [place] [address] [address] Tammy Tong XR TSPINE 3 VIEWSon [...] ISHAN CARR Date: 2022-02-24 10:35 Normal [facility] CULTURE URINEon 01-16-2022 CULTURE URINE Isolate 1 [...] Trimethoprim/Sulfame thoxazole <=20 S F Normal [facility] Comment on above: Performed By: #### U RCX #### [facility] [address] [place] [address] Dr. Tammy Tong CBC W MANUAL DIFFon 01-14-20 22 ATYPICAL LYMPH # 0.00 103/ul Normal [facility] Comment on above: Performed By: #### C AURORAMAN #### [facility] [address] [place] [address] Dr. Tammy Tong ATYPICAL LYMPH % 0 % Normal [facility] Comment on above: Performed By: #### C BCMAN #### [facility] [address] [place] [address] Dr. Tammy Tong BAND # 0.0 103/ul Normal 0.0-0.3 [facility] Comment on above: Performed By: #### C BCMAN #### [facility] [address] [place] [address] Dr. Tammy Tong BAND % 0 % Normal 0-5 [facility] Comment on above: Performed By: #### C BCMAN #### [facility] [address] [place] [address] Dr. Tammy Tong BASOM # 0.00 103/ul Normal 0.00-0.10 [facility] Comment on above: Performed By: #### C BCMAN #### [facility] [address] [place] [address] Dr. Tammy Tong BASOM % 0.0 % Critically low 0.2-2.0 [facility] Comment on above: Performed By: #### C BCMAN #### [facility] [address] [place] [address] Dr. Tammy Tong BLAST # 0.0 103/ul Normal [facility] Comment on above: Performed By: #### C BCMAN #### [facility] [address] [place] [address] Dr. Tammy Tong BLAST % 0 % Normal [facility] Comment on above: Performed By: #### C BCDELLA #### [facility] [address] [place] [address] Dr. Tammy Tong CORRECTED WBC Normal 4.0-11.0 [facility] Comment on above: Performed By: #### C BCDELLA #### [facility] [address] [place] [address] Dr. Tammy Tong EOS # 0.00 103/ul Normal 0.00-0.70 [facility] Comment on above: Performed By: #### C BCDELLA #### [facility] [address] [place] [address] Dr. Tammy Tong EOS% 0.0 % Critically low 0.9-7.0 [facility] Comment on above: Performed By: #### C BCDELLA #### [facility] [address] [place] [address] Dr. Tammy Tong HCT 41.5 % Normal 36.0-48.0 [facility] Comment on above: Performed By: #### C BCDELLA #### [facility] [address] [place] [address] Dr. Tammy Tong HGB 13.9 g/dl Normal 12.0-16.0 [facility] Comment on above: Performed By: #### C BCMAN #### [facility] [address] [place] [address] Dr. Tammy Tong LYMPHM # 0.52 103/ul Critically low 1.20-3.80 [facility] Comment on above: Performed By: #### C CHNAELL #### [facility] [address] [place] [address] Dr. Tammy Tong LYMPHM% 3.0 % Critically low 20.5-60.0 [facility] Comment on above: Performed By: #### C CHANELL #### [facility] [address] [place] [address] Dr. Tammy Tong MCH 30.0 pg Normal 26.7-34.0 [facility] Comment on above: Performed By: #### C CHANELL #### [facility] [address] [place] [address] Dr. Tammy Tong MCHC 33.5 g/dl Normal 29.9-35.2 [facility] Comment on above: Performed By: #### C CHANELL #### [facility] [address] [place] [address] Dr. Tammy Tong MCV 89.4 fL Normal 79.1-95.6 [facility] Comment on above: Performed By: #### C CHANELL #### [facility] [address] [place] [address] Dr. Tammy Tong METAMYELOCYTE # 0.0 103/ul Normal [facility] Comment on above: Performed By: #### C CHANELL #### [facility] [address] [place] [address] Dr. Tammy Tong METAMYELOCYTE % 0 % Normal [facility] Comment on above: Performed By: #### C CHANELL #### [facility] [address] [place] [address] Dr. Tammy Tong MONOM# 0.00 103/ul Critically low 0.30-0.80 [facility] Comment on above: Performed By: #### C CHANELL #### [facility] [address] [place] [address] Dr. Tammy Tong MONOM% 0.0 % Critically low 1.7-12.0 [facility] Comment on above: Performed By: #### C CHANELL #### [facility] [address] [place] [address] Dr. Tammy Tong MPV 9.8 fL Normal 9.5-13.5 [facility] Comment on above: Performed By: #### C CHANELL #### [facility] [address] [place] [address] Dr. Tammy Tong MYELOCYTE # 0.0 103/ul Normal [facility] Comment on above: Performed By: #### C CHANELL #### [facility] [address] [place] [address] Dr. Tammy Tong MYELOCYTE % 0 % Normal [facility] Comment on above: Performed By: #### C CHANELL #### [facility] [address] [place] [address] Dr. Tammy Tong NRBC 0 Normal [facility] Comment on above: Performed By: #### C CHANELL #### [facility] [address] [place] [address] Dr. Tammy Tong PLT 325 103/ul Normal 150-450 [facility] Comment on above: Performed By: #### C CHANELL #### [facility] [address] [place] [address] Dr. Tammy Tong RBC 4.64 106/ul Normal 3.40-5.30 [facility] Comment on above: Performed By: #### C CHANELL #### [facility] [address] [place] [address] Dr. Tammy Tong RDW 12.2 % Normal 11.0-15.0 [facility] Comment on above: Performed By: #### C CHANELL #### [facility] [address] [place] [address] Dr. Tammy Tong SEG # 16.68 103/ul Critically high 1.40-6.50 [facility] Comment on above: Performed By: #### C CHANELL #### [facility] [address] [place] [address] Dr. Tammy Tong SEG % 97.0 % Critically high 43.0-75.0 [facility] Comment on above: Performed By: #### C CHANELL #### [facility] [address] [place] [address] Dr. Tammy Tong WBC 17.2 103/ul Critically high 4.0-11.0 [facility] Comment on above: Performed By: #### C CHANELL #### [facility] [address] [place] [address] ABD/PELVIS WO CONon [...] ROZ WEAVER Date: 2022-01-13 14:44 Normal [facility] ER URINE PROFILEon 2 Bilirubin Ql (U) Negative Normal NEGATIVE [facility] Comment on above: Performed By: #### P HEATHER LAMAR, ERUR #### [facility] [address] [place] [address] Dr. Tammy Tong Clarity (U) CLEAR Normal CLEAR [facility] Comment on above: Performed By: #### P HEATHER LAMAR, ERUR #### [facility] [address] [place] [address] Dr. Tammy Tong Color (U) YELLOW Normal YELLOW [facility] Comment on above: Performed By: #### HEATHER KELLY, ERUR #### [facility] [address] [place] [address] Dr. Tammy Tong ERUBOB A micrscopic examination will be performed if indicated. Normal [facility] Comment on above: Performed By: #### P HEATHER LAMAR, ERUR #### [facility] [address] [address] [address] Tammy Tong Glucose Ql (U) Negative Normal NEGATIVE [facility] Comment on above: Performed By: #### HEATHER KELLY, ANABELR #### [facility] [address] [address] [address] Tammy Tong Hemoglobin Ql (U) LARGE Abnormal NEGATIVE [facility] Comment on above: Performed By: #### HEATHER KELLY, ANABELR #### [facility] [address] [address] [address] Tammy Tong Ketones Ql (U) >=80 Abnormal NEGATIVE [facility] Comment on above: Performed By: #### HEATHER KELLY ERUR #### [facility] [address] [address] [address] Tammy Tong LEUKOCYTES Negative Normal NEGATIVE [facility] Comment on above: Performed By: #### HEATHER KELLY, ANABELR #### [facility] [address] [address] [address] Tammy Tong Nitrite Ql (U) Negative Normal NEGATIVE [facility] Comment on above: Performed By: #### HEATHER KELLY, ANABELR #### [facility] [address] [address] [address] Tammy Tong pH (U) 6.0 [pH] Normal 5-9 [facility] Comment on above: Performed By: #### HEATHER KELLY, ANABELR #### [facility] [address] [address] [address] Tammy Tong Protein (U) [Mass/Vol] 30 mg/dL Abnormal NEGATIVE/ TRA CE [facility] Comment on above: Performed By: #### HEATHER KELLY, ANABELR #### [facility] [address] [address] [address] Tammy Tong SPEC GRAVITY 1.025 Normal 1.005-<=1.025 [facility] Comment on above: Performed By: #### HEATHER KELLY, ANABELR #### [facility] [address] [place] [address] Dr. Tammy Tong UR MICRO IND INDICATED Normal [facility] Comment on above: Performed By: #### P HEATHER LAMAR, ERUR #### [facility] [address] [place] [address] Dr. Tammy Tong Urobilinogen Qn (U) 0.2 {Gabriela'U}/dL Normal 0.2 - 1. 0 [facility] Comment on above: Performed By: #### P HEATHER LAMAR, ERUR #### [facility] [address] [place] [address] Dr. Tammy Tong URon 01-13-2022 , QUAL Negative Normal NEGATIVE [facility] Comment on above: Performed By: #### P HEATHER LAMAR, ANABELR #### [facility] [address] [place] [address] Dr. Tammy Tong PROF 14(COMP METB)on 022 Albumin [Mass/Vol] 4.2 g/dL Normal 3.4-5.0 [facility] Comment on above: Performed By: #### C MP #### [facility] [address] [place] [address] Dr. Tammy Tong Albumin/Globulin [Mass ratio] 1.1 {ratio} Normal [facility] Comment on above: Performed By: #### C MP #### [facility] [address] [place] [address] Dr. Tammy Tong ALP [Catalytic activity/Vol] 84 U/L Normal 65-260 [facility] Comment on above: Performed By: #### C MP #### [facility] [address] [place] [address] Dr. Tammy Tong ALT [Catalytic activity/Vol] 17 U/L Normal 14-59 [facility] Comment on above: Performed By: #### C MP #### [facility] [address] [place] [address] Dr. Tammy Tong Anion gap [Moles/Vol] 14.0 mmol/L Normal Th [facility] Comment on above: Performed By: #### C MP #### [facility] [address] [address] [address] Tammy Tong AST [Catalytic activity/Vol] 11 U/L Critically low 15-37 [facility] [facility] Comment on above: Performed By: #### C MP #### [facility] [address] [address] [address] Tammy Tong Bilirubin [Mass/Vol] 0.7 mg/dL Normal 0.2-1.0 [facility] Comment on above: Performed By: #### C MP #### [facility] [address] [address] [address] Tammy Tong Calcium [Mass/Vol] 9.4 mg/dL Normal 8.5-10.1 [facility] Comment on above: Performed By: #### C MP #### [facility] [address] [address] [address] Tammy Tong Chloride [Moles/Vol] 104 mmol/L Normal 98-107 [facility] Comment on above: Performed By: #### C MP #### [facility] [address] [address] [address] Tammy Tong CO2 [Moles/Vol] 26.2 mmol/L Normal 21.0-32.0 [facility] Comment on above: Performed By: #### C MP #### [facility] [address] [address] [address] Tammy Tong Creatinine [Mass/Vol] 0.88 mg/dL Normal 0.55-1.02 [facility] Comment on above: Performed By: #### C MP #### [facility] [address] [address] [address] Tammy Tong EGFR-AF NIGERIEN >60 Normal >=60 [facility] Comment on above: Performed By: #### C MP #### [facility] [address] [address] [address] Tammy Tong EGFR-NON AF NIGERIEN >60 Normal >=60 [facility] Comment on above: Performed By: #### C MP #### [facility] [address] [address] [address] Tammy Tong Globulin (S) [Mass/Vol] 3.8 g/dL Normal [facility] Comment on above: Performed By: #### C MP #### [facility] [address] [address] [address] Tammy Tong Glucose [Mass/Vol] 155 mg/dL Critically high 74-106 [facility] Comment on above: Performed By: #### C MP #### [facility] [address] [address] [address] Tammy Tong Potassium [Moles/Vol] 4.2 mmol/L Normal 3.5-5.1 [facility] Comment on above: Performed By: #### C MP #### [facility] [address] [place] [address] Dr. Tammy Tong Protein [Mass/Vol] 8.0 g/dL Normal 6.4-8.2 [facility] Comment on above: Performed By: #### C MP #### [facility] [address] [place] [address] Dr. Tammy Tong Sodium [Moles/Vol] 140 mmol/L Normal 136-145 [facility] Comment on above: Performed By: #### C MP #### [facility] [address] [place] [address] Dr. Tammy Tong Urea nitrogen [Mass/Vol] 14.0 mg/dL Normal 6.4-19.3 [facility] Comment on above: Performed By: #### C MP #### [facility] [address] [address] [address] Tammy Tong Urea nitrogen/Creatinine [Mass ratio] 15.9 mg/mg Normal [facility] Comment on above: Performed By: #### C MP #### [facility] [address] [place] [address] Dr. Tammy Tong URINE MICROSCOPIC ONLYon BACTERIA TRACE Abnormal NONE SEEN [facility] Comment on above: Performed By: #### P HEATHER LAMAR, ERUR #### [facility] [address] [place] [address] Dr. Tammy Tong Bacteria identified Cx Nom (U) INDICATED Normal [facility] Comment on above: Performed By: #### P REGU, UMICRO, ERUR #### [facility] [address] [address] [address] Tammy Tong CAST NONE SEEN Normal NONE SEEN [facility] Comment on above: Performed By: #### P REGU, UMICRO, ERUR #### [facility] [address] [address] [address] Tammy Tong Crystals LM Nom (Urine sed) NONE SEEN Normal NONE SEEN [facility] Comment on above: Performed By: #### P REGU, UMICRO, ERUR #### [facility] [address] [address] [address] Tammy Tong Epithelial cells LM Ql (Urine sed) FEW Abnormal NONE SEEN /RARE [facility] Comment on above: Performed By: #### P REGU, UMICRO, ERUR #### [facility] [address] [address] [address] Tammy Tong MUCOUS NONE SEEN Normal NONE SEEN [facility] Comment on above: Performed By: #### P REGU, UMICRO, ERUR #### [facility] [address] [address] [address] Tammy Tong RBC 5-10 Abnormal 0-2 [facility] Comment on above: Performed By: #### P REGU, UMICRO, ERUR #### [facility] [address] [address] [address] Tammy Tong WBC 2-5 Abnormal NONE SEEN [facility] Comment on above: Performed By: #### P REGU, UMICRO, ERUR #### [facility] [address] [address] [address] Tammy Tong Coding Summaryon 10-26-2018 Coding Summary CODING DATE: 10/26/2018 [facility] STATUS: Home PAYOR: Medicaid HMO ADMIT DX: [...] Niya Leahy Date Saved: 10/26/2018 02:31 pm [facility] Coding Summary CODING DATE: 10/26/2018 [facility] STATUS: Home PAYOR: Medicaid HMO ADMIT DX: [...] in slightly different terminology. Coded By: Niya Laehy Date Saved: 10/26/2018 02:28 pm [facility] ED Clinical Summaryon 2018 ED Clinical Summary [facility] - Emergency Department [address] [place], [place] [id number] ED Clinical Summary PERSON INFORMATION Name: ERIKA RANGEL Age: 12 Years Sex: FEMALE : [birth year] MRN: Acct#: Visit Reason: Back pain; BACK PAIN Arrival: 10/23/18 11:45:00 Discharge: 10/23/18 13:39:00 LOS: 000 01:54 Check In: 10/23/18 11:45:00 Checkout:10/23/18 13:39:00 Address: [facility] [address] [address] PCP: LINSEY VINSON PROVIDER INFORMATION Provider Role Assigned Unassigned Tulio Guan PA-C ED PA 10/23/18 11:52:50 Bridgette RN, [place] ED Nurse 10/23/18 11:53:20 VITALS INFORMATION [...] Pain, Pediatric Follow-Up: With: Address: When: LINSEY VINSON [address] [place] [address] [place], [place] [id number] Business (1) Within 3 to 5 days [...] iver verbalizes understanding of instructions given Comment: [facility] ED Note - Physicianon 2018 ED Note - Physician Patient: ERIKA RANGEL Age: 12 years Sex: FEMALE : [birth year] [...] of care. Impression and Plan Diagnosis Scoliosis ([id number] M41, Discharge, Medical) Chronic back pain (PUT06-CC M54.9, Discharge, Medical) Plan Condition: Stable. Disposition: [...] on: 10/23/2018 13:53 EDT] Tulio Guan PA-C [facility] ED Note-Nursingon 10-23-2018 ED Note-Nursing Pt taken to for urine specimen, instructions provided. [facility] ED Note-Nursing PT ARRIVED IN ED W/ CC OF CHRONIC BACK PAIN FROM A MINOR INJURY ABOUT 2 YEARS AGO. PT HAS NOT BEEN SEEN BY PCP, THERAPY, OR PAIN MANAGEMENT. PT IS ALERT AND ORIENTED AND AMBULATED TO ED ROOM 3 W/O DIFFICULTY OR INCIDENT. [facility] ED Note-Nursing Pt ambulated to room #3, mother at bedside. C/O back pain from a friend falling on pt years ago. [facility] ED Patient Education Noteon 10-23-2018 ED Patient [...] or a shower. General instructions ? Take wbkl-fna-vkbdjrv and prescription medicines only as told by [...] 03/19/2001 Document Revised: 06/15/2017 Document Reviewed: 09/24/2016 [employer] Interactive Patient Education ? 2019 [employer]. Back Pain, Pediatric Low back pain and [...] usually be resumed gradually. ? Only give dngy-xok-zujsmkh or prescription medicines as directed by your [...] 09/02/2006 Document Revised: 09/02/2016 Document Reviewed: 09/05/2013 Elsevier Interactive Patient Education ? 2017 [employer]. Normal [facility] ED Patient Summaryon 019 ED Patient Summary [facility] - Emergency Department [address] [place] [address] PATIENT DISCHARGE INSTRUCTIONS Patient Information Name: ERIKA RANGEL Age: 12 Years Date of : [birth year] Reason For Visit: Back pain; BACK PAIN Arrival Time: 10/23/18 11:45:00 Primary Care Physician: LINSEY VINSON Attending Physician: Jarvis Cifuentes Comment: Visit Diagnosis: Diagnoses This Visit Back pain ([id number]) Chronic back pain (M54.9) Scoliosis (M41) Prescription Information: If you have been given a prescription for narcotics, seek immediate medical attention if you have any difficulty breathing or any sudden status changes such as confusion and sleepiness. If you or anyone you know is experiencing suicidal thoughts, mental health, alcohol and/or drug addiction problems; contact the [facility] 26/10 Crisis Hotline -Text 4HAXU ho 317206. If you received any narcotics, sedation, or [...] sign any legal documents With: Address: When: [facility], [address] [place], [place] [id number] Business (1) Within 3 to 5 days [...] and treatment you received today in the [facility] Emergency Department were for an urgent problem and are not intended as complete care. It is important for you to follow up with a doctor, nurse practitioner, or physician?s ob gyn physician assistant for ongoing care. If your symptoms [...] so we can reach you if necessary. [facility] Emergency Department has provided you with a complete list of medications post discharge. Please inform your field assessor/provider of your visit and for further instruction [...] or a shower. General instructions ? Take hhas-paa-qgvbpsw and prescription medicines only as told by [...] 03/19/2001 Document Revised: 06/15/2017 Document Reviewed: 09/24/2016 [employer]EL Interactive Patient Education ? 2019 [employer] Back Pain, Pediatric Low back pain [...] usually be resumed gradually. ? Only give yldy-kzc-fkudgob or prescription medicines as directed by your [...] 09/02/2006 Document Revised: 09/02/2016 Document Reviewed: 09/05/2013 mcTEL Interactive Patient Education ? 2017 [employer]. Viruses or Bacteria What?s got you sick? [...] for Disease Control and Prevention December 2013 [facility] Test Urine 1on U Preg Negative [facility] Comment on above: Performed By: #### 1 [id number], [id number], [id number] #### [facility] (DEFAULT) [address] [place] [address] U Preg Internal Control Pass [facility] Comment on above: Performed By: #### 1 [id number], [id number], [id number] #### [facility] (DEFAULT) [address] [place] [address] UA [id number] 10-23-2018 RBC (U) [#/Vol] Rare [facility] Comment on above: Order Comment: Urina lysis Microscopic order added on by [employer] Expert Rules system. Performed By: #### 1 [id number], [id number], [id number] #### [facility] (DEFAULT) [address] [place] [address] UA Bacteria Trace [facility] Comment on above: Order Comment: Urina lysis Microscopic order added on by [employer] Expert Rules system. Performed By: #### 1 [id number], [id number], [id number] #### [facility] (DEFAULT) [address] [place] [address] UA Squam Epi Few [facility] Comment on above: Order Comment: Urina lysis Microscopic order added on by [employer] Expert Rules system. Performed By: #### 1 [id number], [id number], [id number] #### [facility] (DEFAULT) [address] [place] [address]598 UA WBC 0-2 Normal [facility] Comment on above: Order Comment: Urina lysis Microscopic order added on by [employer] Rules system. Performed By: #### 1 [id number], [id number], [id number] #### [facility] (DEFAULT) [address] [place] [address] UA w Culture if Ind Standard on 10-23-2018 Breakpoint UA Normal [facility] Comment on above: Performed By: #### 1 [id number], [id number], [id number] #### [facility] (DEFAULT) [address] [place] [address] Color (U) YELLOW [facility] Comment on above: Performed By: #### 1 [id number], [id number], [id number] #### [facility] (DEFAULT) [address] [place] [address] Culture? No Normal [facility] Comment on above: Performed By: #### 1 [id number], [id number], [id number] #### [facility] (DEFAULT) [address] [place] [address] Glucose (U) [Mass/Vol] Negative [facility] Comment on above: Performed By: #### 1 [id number], [id number], [id number] #### [facility] (DEFAULT) [address] [place] [address] Ketones Ql (U) Negative [facility] Comment on above: Performed By: #### 1 [id number], [id number], [id number] #### [facility] (DEFAULT) [address] [place] [address] Micro? Indicated [facility] Comment on above: Performed By: #### 1 [id number], [id number], [id number] #### [facility] (DEFAULT) [address] [place] [address] UA Bilirubin Negative [facility] Comment on above: Performed By: #### 1 [id number], [id number], [id number] #### [facility] (DEFAULT) [address] [place] [address] UA Blood TRACE Abnormal NEGATIVE [facility] Comment on above: Performed By: #### 1 [id number], [id number], [id number] #### [facility] (DEFAULT) [address] [place] [address] UA Clarity CLEAR Normal CLEAR [facility] Comment on above: Performed By: #### 1 [id number], [id number], [id number] #### [facility] (DEFAULT) [address] [place] [address]186 UA Leuk Est Negative Normal NEGATIVE [facility] Comment on above: Performed By: #### 1 [id number], [id number], [id number] #### [facility] (DEFAULT) [address] [place] [address] UA Nitrite Negative Normal NEGATIVE [facility] Comment on above: Performed By: #### 1 [id number], [id number], [id number] #### [facility] (DEFAULT) [address] [place] [address] UA pH 6.0 5-8 [facility] Comment on above: Performed By: #### 1 [id number], [id number], [id number] #### [facility] (DEFAULT) [address] [place] [address] UA Protein Negative Normal NEGATIVE [facility] Comment on above: Performed By: #### 1 [id number], [id number], [id number] #### [facility] (DEFAULT) [address] [place] [address] UA Spec Grav 1.010 1.001-1.035 [facility] Comment on above: Performed By: #### 1 [id number], [id number], [id number] #### [facility] (DEFAULT) [address] [place] [address] UA Urobilinogen 0.2 mg/dL Normal 0.2-1.0 [facility] Comment on above: Performed By: #### 1 [id number], [id number], [id number] #### [facility] (DEFAULT) [address] [place] [address] Urine Source Clean Catch [facility] Comment on above: Performed By: #### 1 [id number], [id number], [id number] #### [facility] (DEFAULT) [address] [place] [address]38 XR Spine Thoracic 3 Viewson 10-23-2018 XR [...] Vigil 10/23/18 2:30 pm Technologist: ALBA BROWNING [facility] Vital Signs Date Time Vital Sign Value Performing Clinician Edwin hammond 11-28-2024 09:140400 Body height 165.1 cm PHYSICIAN MARCO [facility] 11-28-2024 09:14-0400 Body temperature 98.4 [degF] PHYSICIAN NO [facility] 11-28-2024 09:14-0400 Body weight 77.11 kg PHYSICIAN NO [facility] 11-28-2024 09:14-0400 Diastolic blood pressure 88 mm[Hg] PHYSICIAN NO [facility] 11-28-2024 09:14-0400 Heart rate 78 /min PHYSICIAN NO [facility] 11-28-2024 09:14-0400 Respiratory rate 20 /min PHYSICIAN NO [facility] 11-28-2024 09:14-0400 SaO2% (BldA) [Mass fraction] 99 % PHYSICIAN NO [facility] 11-28-2024 09:14-0400 Systolic blood pressure 151 mm[Hg] PHYSICIAN NO [facility] 11-26-2024 14:20-0400 Diastolic blood pressure 89 mm[Hg] PHYSICIAN NO [facility] 11-26-2024 14:20-0400 Heart rate 80 /min PHYSICIAN NO [facility] 11-26-2024 14:20-0400 Respiratory rate 18 /min PHYSICIAN NO [facility] 11-26-2024 14:20-0400 SaO2% (BldA) [Mass fraction] 98 % PHYSICIAN NO [facility] 11-26-2024 14:20-0400 Systolic blood pressure 142 mm[Hg] PHYSICIAN NO [facility] 11-26-2024 13:40-0400 Body temperature 98.4 [degF] PHYSICIAN NO [facility] 11-26-2024 11:59-0400 Body height 165.1 cm PHYSICIAN NO [facility] 11-26-2024 11:59-0400 Body weight 83.2 kg PHYSICIAN NO [facility] 10-25-2024 11:02-0400 Body height 165.1 cm Apple Rice WHCNP Work Phone: [facility] 10-25-2024 11:02-0400 Body mass index (BMI) [Percentile] Per age and sex 94 % Apple Rice WHCNP Work Phone: [facility] 10-25-2024 11:02-0400 Body mass index (BMI) [Ratio] 30.79 kg/m2 Apple Rice WHCNP Work Phone: [facility] 10-25-2024 11:02-0400 Body weight 83.92 kg Apple Rice WHCNP Work Phone: [facility] 10-25-2024 11:02-0400 Diastolic blood pressure 73 mm[Hg] Apple Rice WHCNP Work Phone: [facility] 10-25-2024 11:02-0400 Heart rate 81 /min Apple Rice WHCNP Work Phone: [facility] 10-25-2024 11:02-0400 Systolic blood pressure 125 mm[Hg] Apple Fields WHCNP Work Phone: [facility] 10-25-2024 11:01-0400 Body height 165.1 cm Apple Fields WHCNP Work Phone: [facility] 10-16-2024 08:23-0400 Body weight 81.46 kg PHYSICIAN NO [facility] 10-16-2024 07:30-0400 Body temperature 98.2 [degF] PHYSICIAN NO [facility] 10-16-2024 07:30-0400 Diastolic blood pressure 71 mm[Hg] PHYSICIAN NO [facility] 10-16-2024 07:30-0400 Heart rate 77 /min PHYSICIAN NO [facility] 10-16-2024 07:30-0400 SaO2% (BldA) [Mass fraction] 100 % PHYSICIAN NO [facility] 10-16-2024 07:30-0400 Systolic blood pressure 110 mm[Hg] PHYSICIAN NO [facility] 10-15-2024 22:20-0400 Respiratory rate 18 /min PHYSICIAN NO [facility] 10-14-2024 02:13-0400 Body height 165.1 cm PHYSICIAN NO [facility] 10-12-2024 16:17-0400 Body height 165.1 cm PHYSICIAN NO [facility] 10-12-2024 16:17-0400 Body temperature 98.1 [degF] PHYSICIAN NO [facility] 10-12-2024 16:17-0400 Body weight 85.1 kg PHYSICIAN NO [facility] 10-12-2024 16:17-0400 Diastolic blood pressure 87 mm[Hg] PHYSICIAN NO [facility] 10-12-2024 16:17-0400 Heart rate 88 /min PHYSICIAN NO [facility] 10-12-2024 16:17-0400 Respiratory rate 16 /min PHYSICIAN NO [facility] 10-12-2024 16:17-0400 SaO2% (BldA) [Mass fraction] 100 % PHYSICIAN NO [facility] 10-12-2024 16:17-0400 Systolic blood pressure 131 mm[Hg] PHYSICIAN NO [facility] 02-22-2024 14:54-0500 Body height 165.1 cm Shelley Martinez APRN Work Phone: [facility] 02-22-2024 14:54-0500 Body mass index (BMI) [Percentile] Per age and sex 94.2 % Shelley Martinez APRN Work Phone: [facility] 02-22-2024 14:54-0500 Body mass index (BMI) [Ratio] 30.4 kg/m2 Shelley Martinez APRN Work Phone: [facility] 02-22-2024 14:54-0500 Body temperature 99.3 [degF] Shelley Martinez APRN Work Phone: [facility] 02-22-2024 14:54-0500 Body weight 83 kg Shelley Martinez APRN Work Phone: [facility] 02-22-2024 14:54-0500 Diastolic blood pressure 68 mm[Hg] Shelley Martinez APRN Work Phone: [facility] 02-22-2024 14:54-0500 Heart rate 106 /min Shelley Martinez APRN Work Phone: [facility] 02-22-2024 14:54-0500 Respiratory rate 18 /min Shelley Martinez APRN Work Phone: [facility] 02-22-2024 14:54-0500 SaO2% (BldA) [Mass fraction] 96 % Shelley Martinez APRN Work Phone: [facility] 02-22-2024 14:54-0500 Systolic blood pressure 108 mm[Hg] Shelley Martinez APRN Work Phone: [facility] 05-17-2023 10:13-7963 Body height 165.1 cm Luis F Pratt DO Work Phone: [facility] Encounters Encounter Date Encounter Type Care Provider Facility Start: 11-28-2024 End: 11-28-2024 Emergency department patient visit PHYSICIAN NO FAMILY -Emergency Room Work Phone: Start: 11-26-2024 End: 11-26-2024 Emergency department patient visit PHYSICIAN NO FAMILY -Emergency Room Work Phone: Start: 11-16-2024 End: 11-16-2024 ambulatory PHYSICIAN NO [facility] Work Phone: Start: 11-16-2024 End: 11-16-2024 Departed Referred Alessandro Anglin CARE MANAGEMENT SPECIALIST-C -[facility] Start: 11-02-2024 End: 11-02-2024 [facility]counter [facility]: [facility] Start: 11-02-2024 ambulatory Apple Fields [facility] Start: 11-02-2024 Encounter for gynecological examination (general) (routine) without abnormal findings Apple Fields [facility] Start: 10-30-2024 End: 10-30-2024 Encounter identifier Apple ISAAC Work Phone: [facility] Start: 10-25-2024 End: 10-25-2024 Encounter for gynecological examination (general) (routine) without abnormal findings Apple ISAAC Work Phone: [facility] Start: 10-25-2024 End: 10-25-2024 Initial preventive medicine new pt age 18-39yrs Apple ISAAC Work Phone: [facility] Start: 10-14-2024 Non-patient / Non-visit Johnnie hansen MD -[facility] Work Phone: Start: 10-13-2024 End: 10-14-2024 Emergency department patient visit JUSTA QUINONEZLIM [facility] Start: 10-13-2024 Encounter for other general examination CYDNEY Jaramillo MIRIAM [facility] Start: 10-13-2024 End: 10-16-2024 ambulatory Johnnie Clements Facility:[facility] Start: 10-13-2024 Registered Recurring Carrie Sibley MD -[facility] Start: 10-12-2024 End: 10-12-2024 Emergency department patient visit PHYSICIAN MARCO PHILLIPS -Emergency Room Work Phone: Start: 02-22-2024 End: 02-22-2024 ambulatory Shelley Martinez [facility] Work Phone: Start: 02-22-2024 End: 02-22-2024 Departed Referred Shelley Martinez APRN Work Phone: [facility] [place] Work Phone: Start: 02-22-2024 End: 02-22-2024 Patient encounter procedure Shelley Martinez APRN Work Phone: [facility] Work Phone: Start: 05-17-2023 End: 05-17-2023 ambulatory LUIS F PRATT [facility] Start: 05-17-2023 End: 05-17-2023 Office outpatient visit 25 minutes Luis F Pratt DO [facility] Orthopedic Surgery Comment on above: History of spinal fu oneil for scoliosis (Primary Dx); Adolescent idiopathic scoliosis of thoracolumbar region Start: 05-13-2023 Orders Only Ban Lyons CNA [facility] Pediatric [facility] Comment on above: History of spinal fu oneil for scoliosis (Primary Dx) Start: 03-10-2022 End: 03-10-2022 ambulatory SUSAN RODRIGUES Facility:H1 Start: 02-24-2022 End: 02-24-2022 ambulatory ZULEMA RAMOS Facility:[facility]1 Start: 01-13-2022 End: 01-13-[address] KRISTAN CHAWLA Facility:[facility]1 Procedures Date Procedure Procedure Detail Performing Clinician Start: 11-28-2024 Computed tomography of abdomen and pelvis with contrast PHYSICIAN NO FAMILY Start: 11-26-2024 Urine culture PHYSICIAN NO FAMILY Start: 11-26-2024 CT of abdomen and pe lvis without contrast PHYSICIAN NO FAMILY Start: 11-16-2024 Urine culture PHYSICIAN NO FAMILY Start: 10-25-2024 End: 10-25-2024 Anxiety [employer] [facility] Work Phone: Start: 10-25-2024 End: 10-25-2024 Arthritis [employer] [facility] Work Phone: Start: 10-25-2024 End: 10-25-2024 BP scrn perf rec interval [employer] [facility] Work Phone: Start: 10-25-2024 End: 10-25-2024 DIAST BP < 80 MM HG [employer] [facility] Work Phone: Start: 10-25-2024 End: 10-25-2024 Scr dep neg, no plan reqd [employer] [facility] Work Phone: Start: 10-25-2024 End: 10-25-2024 SYST BP < 130 MM HG [employer] [facility] Work Phone: Start: 10-25-2024 End: 10-25-2024 TOBACCO NON-USER [employer] [facility] Work Phone: Start: 10-12-2024 Plain X-ray of right elbow PHYSICIAN NO FAMILY Start: 02-22-2024 Quick Strep (POC) Yakelin Martinez APRN Work Phone: Plan of Treatment Date Care Activity Detail Author [facility]: [facility] Start: 12-15-2024 [facility] Start: 11-28-2024 [facility] Start: 11-16-2024 Urine culture [facility] Start: 11-16-2024 Bacteria identified in Urine by Culture Urine Culture [facility] Start: 11-02-2024 [facility] Work Phone: Start: 10-30-2024 [facility] Work Phone: Start: 10-25-2024 Dietary management education, guidance, and counseling Dietary management education, guidance, and counseling [facility] Start: 10-25-2024 [facility] Work Phone: Start: 10-16-2024 [facility] Start: 10-14-2024 Hospital admission [facility] Start: 02-22-2024 Bacteria identified in Throat by Aerobe culture [facility] Start: 02-22-2024 Throat culture Throat Culture [facility] Start: 01-26-2024 Tobacco Screening Tobacco Screening [facility] Start: 07-23-2023 Adult BMI Screening Adult BMI Screen ing [facility] Start: 05-17-2023 End: 05-13-2024 XR Thoracic and [...] Pediatric Orthopedic Surgery [address] [place] [phone] Luis F Pratt DO [id number] [id number] [facility] Start: 05-17-2023 End: 05-17-2023 Professional / ancillary services management 05/17/2023 10:30 AM EST Ancillary Procedure [facility] [address] [place] [phone] [facility] Start: 12-04-2022 Influenza vaccination Influenza Vacc ine [facility] Start: 2020 MCV (2 - 2-dose series) MCV (2 - 2-dose series) [facility] Start: 06-27-2018 DTaP,Tdap and Td Vac cines (4 - Td or Tdap) DTaP,Tdap and Td Vaccines (4 - Td or Tdap) [facility] Start: 2016 Depression Screening Depression Scre ening [facility] Start: 11-22-2015 HPV Vaccines (1 - 2- dose series) HPV Vaccines (1 - 2-dose series) [facility] Start: 05-02-2011 IPV Vaccines (3 of 3 - 4-dose series) IPV Vaccines (3 of 3 - 4-dose series) [facility] Start: 2008 MMR Vaccines (2 of 2 - Standard series) MMR Vaccines (2 of 2 - Standard series) [facility] Start: 2008 Varicella Vaccines ( 2 of 2 - 2-dose childhood series) Varicella Vaccines (2 of 2 - 2-dose childhood series) [facility] Start: 2005 Hepatitis A Vaccines (1 of 2 - 2-dose series) Hepatitis A Vaccines (1 of 2 - 2-dose series) [facility] Start: 02-24-2005 Hepatitis B Vaccines (2 of 3 - 3-dose series) Hepatitis B Vaccines (2 of 3 - 3-dose series) [facility] Start: 2004 Tobacco Counseling Tobacco Counselin g [facility] Amphetamines [Presen ce] in Urine by Screen method [facility] Barbiturates [Presen ce] in Urine by Screen method [facility] Benzodiazepines [Pre sence] in Urine [facility] Benzoylecgonine [Pre sence] in Urine [facility] Cannabinoids [Presen ce] in Urine by Screen method [facility] Opiates [Presence] i n Urine [facility] Patient Education [facility] Work Phone: Patient referral [facility] Work Phone: Phencyclidine [Prese nce] in Urine [facility] Immunizations Immunization Date Immunization Notes Care Provider Genevieve alves 10-30-2010 poliovirus vaccine, unspecified formulation Ban Lyons [facility] 01-28-2006 measles, mumps and rubella virus vaccine Ban Lyons [facility] 01-28-2006 varicella virus vaccine Ban glass [facility] Payers Date Payer Category Payer Self-pay 2024 Unknown [id number] 2019 Private Health Insurance [id number] 2019 Private Health Insurance [facility] [id number] 2019-Present [phone] [address] [address] [place] [address] [id number] 2004 Unknown [id number] .1286 2004 Unknown [id number] [id number] .1286 2004 Unknown [id number] [id number] .1286 2004 Unknown [id number] [id number] .716 1981 Unknown [id number] 2.16.840.1.430082.3.579.2 .593 1981 Unknown [id number] 2.16.840.1.675500.3.579.2 .593 1981 Unknown [id number] 2.16.840.1.443151.3.579.2 .593 1959 Unknown [id number] Unknown [id number] 2.16.840.1.717268.3.579.2 .531 Unknown [id number] 2.16.840.1.529579.3.579.2 .531 Unknown [id number] 2.16.840.1.446949.3.579.2 .531 Unknown [id number] 2.16.840.1.424450.3.579.2 .531 Unknown [id number] 2.16.840.1.911759.3.579.2 .531 Unknown [id number] 2.16.840.1.015833.3.579.2 .531 Unknown [id number] .531 Social History Date Type Detail Facility Start: 10-30-2024 End: 11-02-2024 Tobacco smoking status NHIS Unknown if ever smoked [facility] Start: 02-23-2024 Sex Female (finding) [facility] Start: 2005 Sex Assigned At Female F [facility] Start: 05-05-2022 End: 11-28-2024 Tobacco smoking status NHIS Smokes tobacco daily [facility] Start: 04-05-2020 History of tobacco use Tobacco Use Types Packs/Day Years Used Date Smoking Tobacco: Every Day Vaping/E-cigarettes Started: 2020 Passive Smoke Exposure: Current Smokeless Tobacco: Never [facility] History of tobacco use Passive smoker Pro [facility] Start: 05-05-2022 Tobacco use and exposure Smokeless tobacco non-user [facility] Start: 01-25-2023 End: 05-17-2023 Alcohol intake Lifetime non-drinker (finding) [facility] Start: 05-03-2020 End: 01-25-2023 History of Social function [facility] Start: 05-03-2020 End: 01-25-2023 Tobacco use panel [facility] Childcare Unknown [facility] Start: 05-05-2022 Tobacco [facility] Start: 2004 Sex Assigned At Not on file [facility] Start: 10-25-2024 Alcohol intake Alcohol Use Details [facility] Start: 10-25-2024 Tobacco use and exposure Non-Smoking Tobacco Use Details [facility] Sexual Orientation Straight or heterosexual [facility] Work Phone: NEGATED: Highlighted row N [facility] NEGATED: Highlighted rowStart: 10-25-2024 Tobacco smoking status NHIS Never smoker [facility] NEGATED: Highlighted rowStart: 10-25-2024 History of tobacco use Current non-smoker [facility] Medical Equipment Procedure Code Equipment Code Equipment Origin al Text Equipment Identifier Dates Graft Bn Canc 1- 4mm 30ml Frzn Chp [facility] Rdgrf - [id number] - [id number] Start: 05-19-2022 Andre Spnl Reline 500mm 5.5mm Ti Str Ns - [id number] Start: 05-19-2022 Screw Bn 40mm 6. 5mm Uniplanar Spne Reline-O 2s Ns - [id number] Start: 05-19-2022 Clinical Notes 05-17-2023 to 11-28-2024 Note Date & Type Note Facility 11-28-2024 Radiology Diagnostic study note [place] [address] CT Scan Report Signed Patient: Erika Don MR#: [id number] : 2005 Acct:[id number] Age/Sex: 19 / F ADM Date: 5 Loc: ER Room: Type: [facility] ER Attending Dr: Copies to: Adalgisa James APRN~ Ordering Provider: Adalgisa James APRN Date of Service: 11/28/24 CT/CT abdomen pelvis w con: Abdominal Pain CT Abdomen and Pelvis withcontrast TECHNIQUE: Axial imaging with 2-D reconstruction.90 cc of Isovue-300. The CT exam was performed using one or more the following dose reduction techniques: Automated exposure control, adjustment of the MA and/or Kv according to patient size, or use of the iterative reconstruction technique. COMPARISON: 11/26/2024 History: UTI. Right flank pain LIMITATIONS: None LOWER THORAX Unremarkable LIVER: Unremarkable GALLBLADDER: No gallbladder abnormality identified. BILE DUCTS: No dilatation SPLEEN: Unremarkable PANCREAS: Unremarkable ADRENAL GLANDS: Unremarkable KIDNEYS:Left renal scarring and cystic change. No hydronephrosis. No abscess. Symmetric nephrograms. AORTA: No abdominal aortic aneurysm identified. RETROPERITONEUM: No significant retroperitoneal abnormalities identified. MESENTERY:Unremarkable STOMACH:Unremarkable SMALL BOWEL: The small bowel loops are nondistended. APPENDIX: The appendix is normal. COLON: Unremarkable URINARY BLADDER: Urinary bladder wall thickening. Underdistention versus cystitis. REPRODUCTIVE SYSTEM: Reproductive structures are unremarkable. PNEUMOPERITONEUM: None PERITONEAL FLUID:None BONY STRUCTURES: Spinal fixation hardware ABDOMINAL WALL: Unremarkable CT/CT abdomen pelvis w con IMPRESSION: No hydronephrosis. Urinary bladder wall thickening. Underdistention versus cystitis. Impression dictated by: Mirza Lamas M.D. 11/28/2024 11:34 AM Dictation Location: [facility]- Transcribed By: [facility] 11/28/24 1134 Dictated By: Mirza Lamas DO 11/28/24 1129 Signed By: 11/28/24 1134 [facility] 10-25-2024 Evaluation note Type assessment Encounter for gyneco logical examination (general) (routine) without abnormal findings assessment Body mass index [BMI] 30.0-30.9, adult assessment - STD heterosexual behavior assessment - STD cultures assessment OCP initial Rx [facility] Work Phone: [phone] History of Present illness Narrative* Encounter Date [...] is green. Last menstrual period was 10/11/2024. [facility] Work Phone: 1(736) 315-678707-23-2025 Instructions* Date Instruction Additional Infor judson Encouraged [...] to Body mass index [BMI] 30.0-30.9, adult [facility] Work Phone: 1(781) 540-753807-14-2025 Hospital Discharge instructions Additional Instructions Important Contact Information You can call [facility] Inpatient Behavioral Health at [phone] any time day or night if you have emergent questions or question regarding discharge instructions. If at any time you are feeling an increase in your psychiatric symptoms, call your physician or behavioral healthcare provider. If any time you have thoughts of harming yourself or others contact one of the following: Call 9-8-8 (available 26/10) Crisis Text Line (available 26/10) text 4HOPE to [phone] [facility] Hope Line (available 8 a.m. Midnight) call [phone] ([phone]) [facility] Work Phone: 1(912) 491-504607-12-2025 Evaluation note* Diagnosis Onset Date Resolution Status Admit Date Acute depression acute October 1:10am [facility] Work Phone: 1([phone]) 585-264507-10-2025 Hospital Discharge instructions Additional Instructions Rest, ice, elevate the right elbow. Take [id number] Tylenol Motrin as needed for pain or discomfort. May apply the Manny wrap daily for comfort. Follow-up with primary care provider in the next 3 to 5 days. Return here if symptoms persist or worsen.[facility] Work Phone: 1(289) 221-403411-19-2024 Evaluation note* Diagnosis Onset Date Resolution Status Admit Date Acute pharyngitis acute Novem r 2023 2:37pm [facility] Work Phone: 1([phone]) 379-410002-12-2024 History of Present illness Narrative* Luis F Pratt, - 05/17/2023 10:30 AM EST Chief Complaint Patient presents with Scoliosis HPI:Erika Bernard is a female 17 y.o. here [...] lower extremities. She is a senior at [employer]. Review of Systems: General: No fatigue or [...] informs us that she is moving to [place] after her graduation from high school this spring. We discussed that she does not need to follow up with us and if she has any troubles she may certainly call the office for direction of who she should see in [place]. They were informed if any other concerns or difficulties were to arise in the interim that they should call for an appointment sooner rather than later. Patient and family understand plan of care and are in agreement. More than 30 minutes was spent reviewing radiographs of today's radiographs as well as previous x-rays. More than 50% of that time was spent with wmfv-oc-pahf discussion with family and patient. - BANG PRETTY, [employer] CROP SUPERVISOR 05/17/23 10:27 AM I, LUIS F PRATT DO, personally performed the face to face evaluation on this patient. I discussed with the patient and confirmed the accuracy and completeness of the aforementioned history prepared by the wrangell practice provider, and I personally performed the clinical examination of the patient. I discussed the treatment plan with the patient. We would recommend follow up in 1 year however child is moving to [place]. Continued follow-up there should be arranged. [facility]* Clinical Note Date No Information [facility] Work Phone: Discharge summary* Clinical Note Date No Information [facility] Work Phone: Evaluation note* Diagnosis History of spinal fusion for scoliosis- Primary documented in this encounter [facility]* Diagnosis History of spinal fusion for scoliosis- Primary Adolescent idiopathic scoliosis of thoracolumbar region documented in this encounter [facility] System[facility] noteNo assessment information available [facility] Work Phone: Evaluation note* Type Assessment Date No Information [facility] Work Phone: History and physical note* Clinical Note Date No Information [facility] Work Phone: History of Past illness Narrative* Condition Effective Dates (start - stop) O utcome No Information [facility] Work Phone: History of Present illness Narrative* Encounter Date Complaint History Of Prese nt Illness No Information [facility] Work Phone: Hospital Discharge instructions Additional Instructions Discontinue all use of any products containing cannabis or THC. Increase p.o. fluids and resume antibiotics for prior diagnosis of UTI and pyelonephritis. Take Phenergan or Zofran as prescribed for nausea. Take atb with food. Follow a bland diet free of lactose due to your lactose intolerance. Follow-up with your primary care physician. Return to emergency room with any worsening concerns or new symptoms.[facility] Work Phone: InstructionsNot on filedocumented in this encounter [facility] System[facility]ructionsNot on filedocumented in this encounter [facility] System[facility]ructions* Date Instruction Additional Infor mation No Information [facility] Work Phone: Progress note* Clinical Note Date No Information [facility] Work Phone: Reason for referral (narrative)No reason for referral [facility] Work Phone: Reason for referral (narrative)* Reason For Referral No Information [facility] Work Phone: Review of systems Narrative - Reported* System Pos/Neg Findings No Information [facility] Work Phone: Summary Purpose Family History No Family History Records Found Relationship Condition Age at Onset Recorded Date/T catalina father Unknown Malignant neoplasm Unknown Family Member Type Diagnosis Age At Onset No Information Advance Directives No Advanced Directives Records Found Advance Directive Response Recorded Date/ Time Advance [...] Acute depression October 14, 2024 1:10 am Chief Complaint Admit Date right arm pain October 12, 2024 4:10 pm October 13, 2024 11:0 0am Depression October 14, 2024 1:10 am Unknown November 16, 2024 2: 50pm Chief Complaint Admit Date right arm pain October 12, 2024 4:10 pm October 13, 2024 11:0 0am Depression October 14, 2024 1:10 am Unknown November 16, 2024 2: 50pm abd pain and vomiting November 26, 2024 11:32am kidney pain November 28, 2024 9: 05am Physical Exam Exam Findings Details Neck Exam [...] section and content) DATE CREATED AUTHOR 10/29/2018 [facility] DATE CREATED AUTHOR AUTHOR'S ORGANIZ ATION 03/11/2022 [facility] DATE CREATED AUTHOR AUTHOR'S ORGANIZ ATION 05/18/2023 [facility] DATE CREATED AUTHOR AUTHOR'S ORGANIZ ATION 10/18/2024 [facility] DATE CREATED AUTHOR AUTHOR'S ORGANIZ ATION 11/04/2024 [facility] DATE CREATED AUTHOR AUTHOR'S ORGANIZ ATION 12/13/2024 [facility] Care Teams (unrecognized sec tion and content) [...] February 22, 2024 End: February 22, 2024 Bilingual Sales Assistant Relationship Specialty Start Date End Date No Pcp, [place] [address] PCP - General Family Medicine 04/10/22 Bilingual Sales Assistant Relationship Specialty Start Date End Date No Pcp, [place] [address] PCP - General [facility] Medicine 04/10/22 Team Status: Active Member Role [...] (start - stop) Status Members No Information Team Status: Inactive Member Role Status Dates Alessandro Anglin Attending Provider Active Start: A 2024 End: November 16, 2024 Team Status: Inactive Member Role Status Dates PHYSICIAN NO FAMILY Primary Care Provider Active Start: November 26, 2024 End: November 26, 2024 Hayder Bonilla MD Emergency Provider Active Star t: November 26, 2024 End: November 26, 2024 Team Status: Inactive Member Role Status Dates PHYSICIAN NO FAMILY Primary Care Provider Active Start: November 28, 2024 End: November 28, 2024 Adalgisa James APRN Emergency Provider Active Start: November 28, 2024 End: November 28, 2024 Goals (unrecognized section and content) Health Concern [...] BE BASED ON THE PRIMARY CLINICAL RECORDS. [facility], [facility]. provides no warranty or guarantee of the accuracy or completeness of information in this document.
--- NOTE | 2024-12-19 21:23 | ED_ITS ---
Documented by User: YOLANDA Hayes 12/19/24 22:06 HPI HPI - General Adult General Chief complaint: Back Pain/Injury Stated complaint: BACK HURTS Time Seen by Provider: 12/19/24 21:06 Source: patient Mode of arrival: walk-in Limitations: no limitations History of Present Illness HPI narrative: Is a 19-year-old female with a past surgical history of scoliosis repair at 16 years old that presents to the emergency department with complaints of right sided thoracic back pain for about a week. She denies any trauma. She is concerned there is an issue with her hardware. She had surgery with a physician and Yousif at [facility], she is unsure of the name. She denies any bowel or bladder incontinence, saddle anesthesia, or numbness/tingling to her lower extremities. She denies any fever or systemic complaints. Related Data Allergies Allergy/AdvReac Type Severity Reaction Status Date / Time Penicillins Allergy Severe Rash Verified 12/19/24 21:08 Opioid HPI Opioid Management Most Recent Opioid Data: Last Pain Scale 7 Today, 21:36 Last MAR Pain Assessment Today, 21:34 Review of Systems ROS Status of ROS 10 or more systems reviewed and unremark able except as noted in history and below PFSH PFSH Social History Little interest or pleasure in doing things: not at all Feeling down, depressed, or hopeless: not at all Exam Narrative Exam Narrative: General: No distress, age-appropriate Skin: Warm, dry, no pallor. No rash. Head: Normocephalic, atraumatic. Neck: Supple, non-tender. Eye: Pupils are equal, round and EOMI. No scleral icterus. Ears, Nose, Mouth, and Throat: No nasal mucosal hypertrophy. Oral mucosa is moist, no posterior oropharynx erythema, uvula is mid-line Cardiovascular: Regular Rate and Rhythm without murmur, gallop or rub. Respiratory: No accessory muscle use or respiratory distress. Lungs are clear to auscultation, no wheezing, rales or rhonchi Chest Wall: no tenderness Back: No midline thoracic or lumbar vertebral tenderness. Right sided paraspinal thoracic tenderness, around T7. Extensive midline scar over the entire thoracic spine. Musculoskeletal: Full ROM of all extremities, no calf or popliteal tenderness GI: Abdomen is soft, non-distended, non tender to palpation. No masses appreciated. No rebound, guarding, or rigidity noted. Neurological: A&O x4. No cranial nerve dysfunction observed. No truncal ataxia. Moves all extremities. Sensation intact. Psychiatric: Cooperative and interactive. Normal mood and affect. Constitutional Vital Signs, click to edit/add: Last Vital Signs Temp 98.6 F 12/19/24 21:04 Pulse 93 H 12/19/24 21:04 Resp 16 12/19/24 21:25 BP 148/82 H 12/19/24 21:04 Pulse Ox 98 12/19/24 21:04 O2 Del Method Room Air 12/19/24 21:04 Course Vital Signs Vital signs: Vital Signs Temperature 98.6 F 12/19/24 21:04 Pulse Rate 93 H 12/19/24 21:04 Respiratory Rate 14 12/19/24 21:04 Blood Pressure 148/82 H 12/19/24 21:04 Pulse Oximetry 98 12/19/24 21:04 Oxygen Delivery Method Room Air 12/19/24 21:04 Temperature 98.6 F 12/19/24 21:04 Pulse Rate 93 H 12/19/24 21:04 Respiratory Rate 16 12/19/24 21:25 Blood Pressure 148/82 H 12/19/24 21:04 Pulse Oximetry 98 12/19/24 21:04 Oxygen Delivery Method Room Air 12/19/24 21:04 Medical Decision Making MDM Narrative Medical decision making narrative: 19-year-old female presented to the emergency department with complaints of 1 week of right-sided sharp thoracic back pain. 3 years ago she had a extensive back surgery to fix her scoliosis. She denies any trauma. On exam there is an extensive midline thoracic surgical scar. No swelling, no erythema, no warmth. Tenderness is on the right paraspinal musculature. Neurologic: Exam is intact, 5/5 strength bilateral lower extremities, sensation is symmetric and intact distally bilaterally. Patient denies any bowel or bladder incontinence, saddle anesthesia. No fevers. Patient experiencing a pinching feeling in this area for about a week and is concerned about hardware malfunction. CT scan of the thoracic spine was ordered and Toradol 30mg IM given for pain. Patient was taking Tylenol at home without relief. Toradol IM did help patient's pain improve on reevaluation. At this time of 0 patient was signed out to Dr. Rodriguez. CT scan results are still pending. Differential Diagnosis Differential Diagnosis: Hardware related complication, MSK spasm Imaging Data CT scan - abdomen: Radiologist's impression: ITS Impressions Thoracic Spine CT 12/19/24 21:20 IMPRESSION: No acute bony abnormality or malalignment. There is a similar mild dextro convex curvature, improved over the previous radiographs. Pulido justin placement is noted from C3 through L1. No hardware complication. This is new when compared to the prior radiographs. Impression dictated by: Vj Callejas M.D. 12/19/2024 10:25 PM Dictation Location: [employer] Electronically authenticated by: [id number] Y Date: 12/19/2024 22:25 Discharge Plan Discharge Chief Complaint: Back Pain/Injury Clinical Impression: Thoracic back pain Patient Disposition: Home, Self-Care Time of Disposition Decision: 22:35 Condition: Good Print Language: Japanese Instructions: Thoracic Pain (ED), Back Pain (ED) Referrals: Physician,Non-Staff, MD [Primary Care Provider] - 1 week Documented by User: Ewa Rodriguez MD 12/19/24 22:36 HPI HPI - General Adult General Chief complaint: Back Pain/Injury Stated complaint: BACK HURTS Time Seen by Provider: 12/19/24 21:06 Related Data Allergies Allergy/AdvReac Type Severity Reaction Status Date / Time Penicillins Allergy Severe Rash Verified 12/19/24 21:08 Opioid HPI Opioid Management Most Recent Opioid Data: Last Pain Scale 7 Today, 21:36 Last MAR Pain Assessment Today, 21:34 PFSH PFSH Social History Little interest or pleasure in doing things: not at all Feeling down, depressed, or hopeless: not at all Exam Constitutional Vital Signs, click to edit/add: Last Vital Signs Temp 98.6 F 12/19/24 21:04 Pulse 93 H 12/19/24 21:04 Resp 16 12/19/24 21:25 BP 148/82 H 12/19/24 21:04 Pulse Ox 98 12/19/24 21:04 O2 Del Method Room Air 12/19/24 21:04 Course Vital Signs Vital signs: Vital Signs Temperature 98.6 F 12/19/24 21:04 Pulse Rate 93 H 12/19/24 21:04 Respiratory Rate 14 12/19/24 21:04 Blood Pressure 148/82 H 12/19/24 21:04 Pulse Oximetry 98 12/19/24 21:04 Oxygen Delivery Method Room Air 12/19/24 21:04 Temperature 98.6 F 12/19/24 21:04 Pulse Rate 93 H 12/19/24 21:04 Respiratory Rate 16 12/19/24 21:25 Blood Pressure 148/82 H 12/19/24 21:04 Pulse Oximetry 98 12/19/24 21:04 Oxygen Delivery Method Room Air 12/19/24 21:04 Medical Decision Making MDM Narrative Medical decision making narrative: 19-year-old female presented to the emergency department with complaints of 1 week of right-sided sharp thoracic back pain. 3 years ago she had a extensive back surgery to fix her scoliosis. She denies any trauma. On exam there is an extensive midline thoracic surgical scar. No swelling, no erythema, no warmth. Tenderness is on the right paraspinal musculature. Neurologic: Exam is intact, 5/5 strength bilateral lower extremities, sensation is symmetric and intact distally bilaterally. Patient denies any bowel or bladder incontinence, saddle anesthesia. No fevers. Patient experiencing a pinching feeling in this area for about a week and is concerned about hardware malfunction. CT scan of the thoracic spine was ordered and Toradol 30mg IM given for pain. Patient was taking Tylenol at home without relief. Toradol IM did help patient's pain improve on reevaluation. At this time of 2199 patient was signed out to Dr. Rodriguez. CT scan results are still pending. This patient was seen and evaluated in conjunction with the physician drilling assistant. She presents for evaluation of 1 week of right sided sharp thoracic back pain. She does have Pulido rods due to a history of scoliosis. She was seen and evaluated. She is not having any neurologic symptoms related to her back pain. She has no bowel or bladder dysfunction. There is no saddle anesthesia, neuroexam is normal. She is feeling better after the Toradol injection that she received. CT scan of the thoracic spine was ordered to rule out hardware complication or other abnormal finding. CT scan was reviewed by radiology with no acute findings. The results of the CT scan were discussed with her. She will be discharged home with prescription for ibuprofen and Flexeril to use over the course of the next week. I explained to her that her symptoms may be related to a strain, muscle spasm, heavy lifting twisting or other etiologies causing musculoskeletal strain in her back. Her symptoms do not appear to be related to her back surgery. Her incision on her back is normal in appearance with no redness swelling notable abnormality in the area where she is having her pain. Imaging Data CT scan - abdomen: Radiologist's impression: ITS Impressions Thoracic Spine CT 12/19/24 21:20 IMPRESSION: No acute bony abnormality or malalignment. There is a similar mild dextro convex curvature, improved over the previous radiographs. Pulido justin placement is noted from C3 through L1. No hardware complication. This is new when compared to the prior radiographs. Impression dictated by: Vj Callejas M.D. 12/19/2024 10:25 PM Dictation Location: [employer] Electronically authenticated by: [id number] Y Date: 12/19/2024 22:25 Discharge Plan Discharge Chief Complaint: Back Pain/Injury Clinical Impression: Thoracic back pain Patient Disposition: Home, Self-Care Time of Disposition Decision: 22:35 Condition: Good Print Language: Japanese Instructions: Thoracic Pain (ED), Back Pain (ED) Referrals: Physician,Non-Staff, MD [Primary Care Provider] - 1 week
[2024-12-19] MEDS: KETOROLAC TROMETHAMINE 30 MG/ML VIAL IM (21:34)
--- NOTE | 2024-12-19 21:53 | PC.NURSE ---
Pt states pain is now tolerable and is much improved SP Toradol.
[2024-12-19 22:45] VITALS: BP 132/73; O2SAT 98
== END 2024-12-19 22:47 | disposition home or self-care (01) ==
PROVIDERS: Emergency Provider Emergency Medicine
DX: M54.6 Pain in thoracic spine (principal)
CPT/HCPCS: 72128; 76376; 96372; 99285; J1885